=== PATIENT | female | born 1940 | race Caucasian/White ===

== ENCOUNTER 2017-09-15 20:41 | Inpatient (IN) ==
[2017-09-15 21:34] LABS: Basophils % 0.7 % (0.1-2.0); Hematocrit 37.7 % (37.0-47.0); Hemoglobin 12.3 g/dL (12.2-16.2); Lymphocytes % 16.4 K/mm3 (10-50); Mean Corpuscular HGB Conc 32.6 g/dL (31.8-35.4); Mean Corpuscular Hemoglobin 34.3 pg (27.0-31.2); Mean Corpuscular Volume 105.4 fl (81-99); Mean Platelet Volume 10.3 fl (7.4-10.4); Monocytes # 0.4 K/mm3 (0.1-1.0); Neutrophils # 4.5 K/mm3 (1.8-7.8); Neutrophils % 75.9 % (37.0-80.0); Platelet Count 114 K/mm3 (142-424); Red Blood Count 3.58 M/mm3 (4.20-5.40); Red Cell Distribution Width 13.6 % (11.5-17.5)
[2017-09-15 22:08] LABS: Albumin Level 3.2 gm/dL (3.4-5.0); Albumin/Globulin Ratio 0.8 (1.1-1.8); Bilirubin,Total 0.3 mg/dL (0.2-1.0); Calcium 8.4 mg/dL (8.5-10.1); Total Protein,Serum 7.2 gm/dL (6.4-8.2)
--- NOTE | 2017-09-15 22:31 | Emergency Department Note ---
ED Disposition Clinical Impression: Acute delirium, Renal insufficiency UTI (urinary tract infection) Qualifiers: Urinary tract infection type: site unspecified Hematuria presence: without hematuria Qualified Code(s): N39.0 - Urinary tract infection, site not specified A-fib Qualifiers: Atrial fibrillation type: chronic Qualified Code(s): I48.2 - Chronic atrial fibrillation Disposition: Admitted as Observation Condition on Discharge: Good - Critical Care Critical Care Time: No Attestation: On 09/15/17, the high probability of a clinically significant, sudden or life threatening deterioration of the following system(s) required my full and direct attention, intervention and personal management. The time I documented below is in addition to time spent performing reported procedures but includes the following listed in this critical care notation. Medical Decision Making - Medical Records Medical records reviewed: Yes: I reviewed the patient's medical records. - Joss Inquiry Pt receiving controlled substance: No Vital Signs: 09/15/17 20:42 09/15/17 21:39 09/15/17 22:30 Temperature 101.3 F H 99.1 F Temperature Source Rectal Oral Pulse Rate [Right Radial] 67 83 74 Respiratory Rate 20 16 20 Blood Pressure [Right Arm] 93/52 148/53 119/53 Blood Pressure Mean [Right Arm] 65 84 75 Blood Pressure Source [Right Arm] Automatic Cuff Automatic Cuff Automatic Cuff Blood Pressure Position [Right Arm] Supine Supine Sitting 02 Sat by Pulse Oximetry 95 97 94 L Oxygen Delivery Method Room Air Room Air Room Air - Lab Data Lab results reviewed: Yes: I reviewed the patient's lab results. Lab Results 09/15/17 20:55: Urine Color Yellow, Urine Appearance Clear, Urine pH 6.0, Ur Specific [place] 1.025, Urine Protein 2+, Urine Glucose (UA) Negative, Urine Ketones Trace, Urine Blood 3+, Urine Nitrate Negative, Urine Bilirubin Negative , Urine Urobilinogen 0.2, Ur Leukocyte Esterase 2+ A, Urine RBC 10-20, Urine WBC 20-50 A, Ur Squamous Epith Cells 3-5, Urine Bacteria 1+ 09/15/17 21:20: Sodium 131 L, Potassium 4.0, Chloride 100, Carbon Dioxide 21, Anion Gap 14.0, BUN 33 H, Creatinine 2.22 H, Estimated Creat Clear 23, Estimated GFR 21 L, Est GFR ( Amer) 26 L, Glucose 191 H, Calcium 8.4 L, Total Bilirubin 0.3, AST 25, ALT 20, Alkaline Phosphatase 122 H, Total Creatine Kinase 75, CK-MB (CK-2) 1.4, CK-MB (CK-2) Rel Index 1.9, Troponin I 0.04, Total Protein 7.2, Albumin 3.2 L, Globulin 4.0 H, Albumin/Globulin Ratio 0.8 L, Amylase 50, Lipase 70 L 09/15/17 21:20: Lactic Acid 1.3 09/15/17 21:20: WBC 6.0, RBC 3.58 L, Hgb 12.3, Hct 37.7, MCV 105.4 H, MCH 34.3 H , MCHC 32.6, RDW 13.6, Plt Count 114 L, MPV 10.3, Neut % (Auto) 75.9, Lymph % ( Auto) 16.4, [place] % (Auto) 7.0, Eos % (Auto) 0.0 L, Baso % (Auto) 0.7, Neut # ( Auto) 4.5, Lymph # (Auto) 1.0, [place] # (Auto) 0.4, Eos # (Auto) 0.0, Baso # (Auto ) 0.0 Result diagrams: 09/15/17 21:20 09/15/17 21:20 Orders (Tests/Meds): ED MEDICATIONS Generic Name Dose Route Start Last Admin Trade Name Freq PRN Reason Stop Dose Admin Levofloxacin/Dextrose 500 mg in 100 mls @ 100 mls/hr 09/15/17 22:45 Levaquin 500mg/100ml Premix IV 09/15/17 23:44 ONCE ONE Protocol Discontinued Medications Generic Name Dose Route Start Last Admin Trade Name Freq PRN Reason Stop Dose Admin Acetaminophen 1,000 mg 09/15/17 20:59 09/15/17 21:15 Tylenol 500mg Tablet PO 09/15/17 21:00 1,000 mg ONCE ONE Administration Sodium Chloride 1,000 mls @ 999 mls/hr 09/15/17 21:30 09/15/17 21:33 Sod Chlor 0.9% 1000ml Bag IV 09/15/17 22:30 999 mls/hr .[id number] DASIA Administration ORDERS Category Date Time Status CT head/brain wo con Stat Cat Scan 09/15/17 21:00 Taken XR chest AP Stat Exams 09/15/17 21:16 Taken Hemoglobin A1C Stat Lab 09/15/17 22:49 Ordered Blood Culture Stat Micro 09/15/17 20:59 Ordered Urine Culture(cathed specimen) Stat Micro 09/15/17 20:55 Received - Radiology Data #1 Image(s): Chest Image Reviewed: Yes I reviewed the patient's radiology image Preliminary Findings: Abnormal (cm) - CT Data CT Scan: Head Time Received: 22:[address] Reviewed: Yes: I have viewed the radiologist's interpretation Preliminary Findings: Abnormal (see report) - ECG Data Tracing #1 I reviewed this ECG and interpreted as documented below: Arrhythmias present: afib Ischemic changes: non-specific ST-T wave changes - Physician Consults Physician Consulted: toñito Reason -: Admission Neuro HPI - General Chief Complaint: Syncope Stated Complaint: altered mental status Time Seen by Provider: 09/15/17 22:22 Mode of Arrival: EMS Source of Information: Patient, Relative Limitations: No Limitations Description of Symptoms (Recalled from ER Triage Doc. by RN): reported presyncope/syncope, with significant hypotension, found in room with her heat on - History of Present Illness HPI Narrative: wf with sudden change in mental status tonight - she was able to follow commands but vomiting and was not at [place] - has hx of a fib/breast cancer and tia - she had no chest pain or trauma - Onset (ago): hour(s) Timing confirmed by: family member Location: altered History of same: No Severity: moderate Quality: improving Context: sudden onset On Anticoagulants: Yes Associated symptoms: nausea/vomiting Treatments Prior to Arrival: none - Related Data Home Medications: Home Medications Medication Instructions Recorded Confirmed Apixaban [Eliquis] 2.5 mg PO BID 09/15/17 09/15/17 Atenolol [Atenolol 50mg Tab] 50 mg PO DAILY 09/15/17 09/15/17 Buspirone HCl [Buspar 10mg tablet] 10 mg PO TID 09/15/17 09/15/17 Cilostazol [Pletal 100mg tablet] 100 mg PO BID 09/15/17 09/15/17 Omeprazole [Omeprazole 40mg 40 mg PO DAILY 09/15/17 09/15/17 Capsule] Spironolactone [Spironolactone 25 mg PO DAILY 09/15/17 09/15/17 25mg Tab] Tamoxifen Citrate 1 tab PO DAILY 09/15/17 09/15/17 Ursodiol [Actigall] 300 mg PO BID 09/15/17 09/15/17 dilTIAZem HCl [Cardizem 60mg 60 mg PO TID 09/15/17 09/15/17 tab] Allergies/Adverse Reactions: Allergies Allergy/AdvReac Type Severity Reaction Status Date / Time cephalexin [CEPHALEXIN] Allergy Mild Verified 09/15/17 20:54 metformin [METFORMIN] Allergy Mild Verified 09/15/17 20:54 Sulfa (Sulfonamide Allergy Mild Verified 09/15/17 20:54 Antibiotics) [SULFA (SULFONAMIDE ANTIBIOTICS)] Stroke Alert/NIH Score - LOC Stroke Alert: No [facility] History I have reviewed the patient's past medical history: Yes Medical History: Reports:: Cancer (breast), Diabetes Mellitus Type 2 Denies:: Diabetes Mellitus Type 1, MRSA Amputation: No - Social History Smoking Status: Current every day smoker Alcohol Intake: never - Psychiatric History Expresses thoughts of harming self/others: None Suicide Plan Description: No Plan ROS Obtained: Yes All systems reviewed & no additional complaints - Constitutional Constitutional: Denies fever(s) - Eyes Eyes: Denies change in vision - ENT Ears, Nose, Mouth, and Throat: Denies sore throat - Cardiovascular Cardiovascular: Denies chest pain, Denies rapid heart rate - Respiratory Respiratory: No cough - Gastrointestinal Gastrointestingal: Denies: abdominal pain, black, tarry stools - Genitourinary Female Genitourinary: Denies hematuria - Musculoskeletal Musculoskeletal: Denies joint pain, Denies joint swelling - Integumentary/Breasts Skin/Breast: Denies rash - Neurologic Neurologic: Reports as per HPI, Reports weakness, Reports other Physical Exam - General General appearance: in no apparent distress - Head Head exam: atraumatic - Eye Eye exam: Present: PERRL, EOMI. Absent: scleral icterus - ENT ENT exam: Present: mucous membranes dry - Neck Neck exam: Present: trachea midline. Absent: meningismus - Respiratory Respiratory exam: Present: normal lung sounds bilaterally. Absent: respiratory distress - Cardiovascular Cardiovascular exam: Present: regular rate, systolic murmur, +S4 - Abdominal Exam Abdominal exam: Present: soft - Extremities Exam Extremities exam: Absent: calf tenderness - Neurological Exam Neurological exam: Present: alert, CN II-XII intact, other (oriented x 2 ) - Psychiatric Psychiatric exam: Present: flat affect - Skin Skin exam: Absent: rash
[2017-09-16 06:11] LABS: Anion Gap 13.8 mEq/L (5-15); Chol/HDL Ratio 3.6 (1-3.5); Phosphorous 3.3 mg/dL (2.4-4.9); Potassium 3.8 mmoL/L (3.5-5.1)
[2017-09-16 06:21] LABS: Basophils % 0.6 % (0.1-2.0); Hematocrit 32.9 % (37.0-47.0); Lymphocytes # 1.6 K/mm3 (0.7-4.5); Lymphocytes % 30.7 K/mm3 (10-50); Mean Corpuscular HGB Conc 33.4 g/dL (31.8-35.4); Mean Corpuscular Hemoglobin 34.3 pg (27.0-31.2); Mean Corpuscular Volume 102.6 fl (81-99); Monocytes # 0.3 K/mm3 (0.1-1.0); Monocytes % 6.4 % (1.7-9.3); Neutrophils # 3.1 K/mm3 (1.8-7.8); Neutrophils % 62.2 % (37.0-80.0); Platelet Count 106 K/mm3 (142-424); Red Blood Count 3.21 M/mm3 (4.20-5.40); Red Cell Distribution Width 13.5 % (11.5-17.5); White Blood Count 5.1 K/mm3 (4.8-10.8)
[2017-09-16 06:22] LABS: Hemoglobin 10.9 g/dL (12.2-16.2)
--- NOTE | 2017-09-16 07:26 | Pharmacy Consult Notes ---
[facility] Pharmacy VTE Monitoring - Patient Demographics Admission date: 09/15/17 Report Date: 09/16/17 Time: 07:26 Allergies/Adverse Reactions: Patient Allergies cephalexin [CEPHALEXIN] Allergy (Mild, Verified 09/15/17 20:54) metformin [METFORMIN] Allergy (Mild, Verified 09/15/17 20:54) Sulfa (Sulfonamide Antibiotics) [SULFA (SULFONAMIDE ANTIBIOTICS)] Allergy (Mild , Verified 09/15/17 20:54) Height: 1.55 m Weight: 56.8 kg Patient Problems: Current Active Problems UTI (urinary tract infection) (Acute) Acute delirium (Acute) Renal insufficiency (Acute) A-fib (Acute) - VTE Risk Labs: VTE Related Lab Results Hgb 10.9 g/dL (12.2-16.2) L D 09/16/17 05:40 Hct 32.9 % (37.0-47.0) L 09/16/17 05:40 Plt Count 106 K/mm3 (142-424) L 09/16/17 05:40 BUN 33 mg/dL (7-18) H 09/16/17 05:40 Creatinine 2.08 mg/dL (0.55-1.02) H 09/16/17 05:40 Estimated Creat Clear 21 mL/min (0-300) 09/16/17 05:40 Was VTE Risk Assessment Performed: Yes VTE Score: 3 VTE Risk Level: Low Risk - Prophylaxis VTE Prophylaxis Ordered?: Yes Types of VTE Prophylaxis: TEDS Knee High, Pharmacological Location of Applied Device: Bilateral Lower Extremeties Pharmacologic Type: Other (ELIQUIS) - VTE Diagnosis Confirmed Treatment or plan recommended: Continue Current Treatment
--- NOTE | 2017-09-16 09:09 | History & Physical Report ---
*Admission Date: 09/15/17 <Kitty Mccray 09/16/17 09:17> *Chief complaint: confusion <Kitty Mccray 09/16/17 09:17> *History of present illness: Ms. Masters is a 77-year-old former patient of Dr. Solorio. According to her family member, she does not have a PCP at this time and she was discharged from his practice due to not showing up for appointments. The patient was eating dinner last night and just began staring off into space. She did not actually pass out but according to her family, had no motor responses. She then began vomiting. 911 was called and transported her to the emergency room where she was found to have a urinary tract infection. According to her family she has these quite frequently. At this time the patient is very lethargic. She did get up to eat some breakfast but is sleeping and does not answer questions this morning. <Kitty Mccray 09/16/17 09:17> [facility] History Medical History: Reports:: Atrial Fibrillation, Cancer, Coronary Artery Disease , Cerebrovascular Accident, Diabetes Mellitus Type 2, Hyperlipidemia, Hypertension Denies:: Diabetes Mellitus Type 1, MRSA <Kitty Mccray 09/16/17 09:17> Other Medical History: Reports: Arthritis, Cataracts <Kitty Mccray 09:17> Other Surgeries: Yes: Cardiac Catheterization, Cholecystectomy, Hysterectomy- Total <Kitty Mccray 09/16/17 09:17> Amputation: No <Kitty Mccray 09/16/17 09:17> Fractures: Yes <Kitty Mccray 09/16/17 09:17> Comment: lumpectomy left breast, hip fx, adhesions removed <Kitty Mccray 09:17> - *Social History Educational Level: Attended High School <Kitty cMcray 09/16/17 09:17> Smoking Status: Current every day smoker <Kitty Mccray 09/16/17 09:17> Tobacco Type: cigarettes <Kitty Mccray 09/16/17 09:17> # Packs/Day (cigarettes): 1 <Kitty Mccray 09/16/17 09:17> #Yrs smoked (if former smoker): 60 <Kitty Mccray 05/24/18 09:17> Alcohol Intake: never <Kitty Mccray 09/16/17 09:17> Occupational Status: retired <Kitty Mccray 09/16/17 09:17> Housing: house <Cornel Mccraya 09/16/17 09:17> Household Members: family <Kitty Mccray 09/16/17 09:17> - Psychiatric History Expresses thoughts of harming self/others: None <SilvioanaKitty 09/16/17 09: 17> Suicide Plan Description: No Plan <ShaziaKitty 09/16/17 09:17> *Family Hx:: Cancer, Diabetes, Stroke <ShaziaKitty 09/16/17 09:17> Review of Systems - Constitutional Reports fever(s) <SilvioanaKitty 09/16/17 09:17> - Eyes Denies blurry vision, Denies double vision <ShaziaKitty 09/16/17 09:17> - ENT Denies nasal congestion, Denies sore throat <ShaziaKitty 09/16/17 09:17> - *Cardiovascular Reports irregular heart rhythm, Denies chest pain <SilvioanaKitty 09/16/17 09 :17> - *Respiratory Reports cough, Denies shortness of breath <ShaziaKitty 09/16/17 09:17> - *Gastrointestinal Reports nausea, Reports vomiting, Denies loose stools <ShaziaKitty 09:17> - *Genitourinary Denies difficulty urinating, Denies painful urination <ShaziaKitty 09:17> - *Musculoskeletal Reports muscle weakness, Denies joint pain <SilvioanaKitty 09/16/17 09:17> - *Neurologic Reports weakness, Reports other <ShaziaKitty 09/16/17 09:17> Meds Home Medications Medication Instructions Recorded Confirmed Type Apixaban [Eliquis] 2.5 mg PO BID 09/15/17 09/16/17 History Atenolol [Atenolol 50mg Tab] 50 mg PO DAILY 09/15/17 09/16/17 History Buspirone HCl [Buspar 10mg tablet] 10 mg PO TID 09/15/17 09/16/17 History Cilostazol [Pletal 100mg tablet] 100 mg PO BID 09/15/17 09/16/17 History Omeprazole [Omeprazole 40mg 40 mg PO DAILY 09/15/17 09/16/17 History Capsule] Spironolactone [Spironolactone 25 mg PO DAILY 09/15/17 09/16/17 History 25mg Tab] Tamoxifen Citrate 1 tab PO DAILY 09/15/17 09/15/17 History Ursodiol [Actigall] 300 mg PO BID 09/15/17 09/16/17 History dilTIAZem HCl [Cardizem 60mg 60 mg PO TID 09/15/17 09/16/17 History tab] <Rolando Elder - 09/16/17 09:23> Allergies Allergy/AdvReac Type Severity Reaction Status Date / Time cephalexin [CEPHALEXIN] Allergy Mild Verified 09/15/17 20:54 metformin [METFORMIN] Allergy Mild Verified 09/15/17 20:54 Sulfa (Sulfonamide Allergy Mild Verified 09/15/17 20:54 Antibiotics) [SULFA (SULFONAMIDE ANTIBIOTICS)] <Rolando Elder - 09/16/17 09:23> Exam Vital signs and Labs for Last 24 Hours: Temp Pulse Resp BP Pulse Ox 98.0 F 75 20 141/61 98 09/16/17 08:00 09/16/17 08:00 09/16/17 08:00 09/16/17 08:00 09/16/17 08:00 Laboratory Results - last 24 hr 09/15/17 20:55: Urine Color Yellow, Urine Appearance Clear, Urine pH 6.0, Ur Specific [place] 1.025, Urine Protein 2+, Urine Glucose (UA) Negative, Urine Ketones Trace, Urine Blood 3+, Urine Nitrate Negative, Urine Bilirubin Negative , Urine Urobilinogen 0.2, Ur Leukocyte Esterase 2+ A, Urine RBC 10-20, Urine WBC 20-50 A, Ur Squamous Epith Cells 3-5, Urine Bacteria 1+ 09/15/17 21:20: Sodium 131 L, Potassium 4.0, Chloride 100, Carbon Dioxide 21, Anion Gap 14.0, BUN 33 H, Creatinine 2.22 H, Estimated Creat Clear 23, Estimated GFR 21 L, Est GFR ( Amer) 26 L, Glucose 191 H, Calcium 8.4 L, Total Bilirubin 0.3, AST 25, ALT 20, Alkaline Phosphatase 122 H, Total Creatine Kinase 75, CK-MB (CK-2) 1.4, CK-MB (CK-2) Rel Index 1.9, Troponin I 0.04, Total Protein 7.2, Albumin 3.2 L, Globulin 4.0 H, Albumin/Globulin Ratio 0.8 L, Amylase 50, Lipase 70 L 09/15/17 21:20: Lactic Acid 1.3 09/15/17 21:20: WBC 6.0, RBC 3.58 L, Hgb 12.3, Hct 37.7, MCV 105.4 H, MCH 34.3 H , MCHC 32.6, RDW 13.6, Plt Count 114 L, MPV 10.3, Neut % (Auto) 75.9, Lymph % ( Auto) 16.4, [place] % (Auto) 7.0, Eos % (Auto) 0.0 L, Baso % (Auto) 0.7, Neut # ( Auto) 4.5, Lymph # (Auto) 1.0, [place] # (Auto) 0.4, Eos # (Auto) 0.0, Baso # (Auto ) 0.0 09/15/17 21:20: Hemoglobin A1c 5.9 09/16/17 05:40: WBC 5.1, RBC 3.21 L, Hgb 10.9 L D, Hct 32.9 L, MCV 102.6 H, MCH 34.3 H, MCHC 33.4, RDW 13.5, Plt Count 106 L, MPV 10.0, Neut % (Auto) 62.2, Lymph % (Auto) 30.7, [place] % (Auto) 6.4, Eos % (Auto) 0.0 L, Baso % (Auto) 0.6, Neut # (Auto) 3.1, Lymph # (Auto) 1.6, [place] # (Auto) 0.3, Eos # (Auto) 0.0, Baso # (Auto) 0.0 09/16/17 05:40: Sodium 135 L, Potassium 3.8, Chloride 104, Carbon Dioxide 21, Anion Gap 13.8, BUN 33 H, Creatinine 2.08 H, Estimated Creat Clear 21, Estimated GFR 23 L, Est GFR ( Amer) 28 L, Glucose 89 D, Phosphorus 3.3, Magnesium 1.7, Triglycerides 100, Cholesterol 148, LDL Cholesterol 87, VLDL Cholesterol 20, HDL Cholesterol 41, Cholesterol/HDL Ratio 3.6 H 09/16/17 06:15: POC Glucose 81 <Rolando Elder - 09/16/17 09:23> Temp Pulse Resp BP Pulse Ox 98.0 F 75 20 141/61 98 09/16/17 08:00 09/16/17 08:00 09/16/17 08:00 09/16/17 08:00 09/16/17 08:00 Laboratory Results - last 24 hr 09/15/17 20:55: Urine Color Yellow, Urine Appearance Clear, Urine pH 6.0, Ur Specific [place] 1.025, Urine Protein 2+, Urine Glucose (UA) Negative, Urine Ketones Trace, Urine Blood 3+, Urine Nitrate Negative, Urine Bilirubin Negative , Urine Urobilinogen 0.2, Ur Leukocyte Esterase 2+ A, Urine RBC 10-20, Urine WBC 20-50 A, Ur Squamous Epith Cells 3-5, Urine Bacteria 1+ 09/15/17 21:20: Sodium 131 L, Potassium 4.0, Chloride 100, Carbon Dioxide 21, Anion Gap 14.0, BUN 33 H, Creatinine 2.22 H, Estimated Creat Clear 23, Estimated GFR 21 L, Est GFR ( Amer) 26 L, Glucose 191 H, Calcium 8.4 L, Total Bilirubin 0.3, AST 25, ALT 20, Alkaline Phosphatase 122 H, Total Creatine Kinase 75, CK-MB (CK-2) 1.4, CK-MB (CK-2) Rel Index 1.9, Troponin I 0.04, Total Protein 7.2, Albumin 3.2 L, Globulin 4.0 H, Albumin/Globulin Ratio 0.8 L, Amylase 50, Lipase 70 L 09/15/17 21:20: Lactic Acid 1.3 09/15/17 21:20: WBC 6.0, RBC 3.58 L, Hgb 12.3, Hct 37.7, MCV 105.4 H, MCH 34.3 H , MCHC 32.6, RDW 13.6, Plt Count 114 L, MPV 10.3, Neut % (Auto) 75.9, Lymph % ( Auto) 16.4, [place] % (Auto) 7.0, Eos % (Auto) 0.0 L, Baso % (Auto) 0.7, Neut # ( Auto) 4.5, Lymph # (Auto) 1.0, [place] # (Auto) 0.4, Eos # (Auto) 0.0, Baso # (Auto ) 0.0 09/15/17 21:20: Hemoglobin A1c 5.9 09/16/17 05:40: WBC 5.1, RBC 3.21 L, Hgb 10.9 L D, Hct 32.9 L, MCV 102.6 H, MCH 34.3 H, MCHC 33.4, RDW 13.5, Plt Count 106 L, MPV 10.0, Neut % (Auto) 62.2, Lymph % (Auto) 30.7, [place] % (Auto) 6.4, Eos % (Auto) 0.0 L, Baso % (Auto) 0.6, Neut # (Auto) 3.1, Lymph # (Auto) 1.6, [place] # (Auto) 0.3, Eos # (Auto) 0.0, Baso # (Auto) 0.0 09/16/17 05:40: Sodium 135 L, Potassium 3.8, Chloride 104, Carbon Dioxide 21, Anion Gap 13.8, BUN 33 H, Creatinine 2.08 H, Estimated Creat Clear 21, Estimated GFR 23 L, Est GFR ( Amer) 28 L, Glucose 89 D, Phosphorus 3.3, Magnesium 1.7, Triglycerides 100, Cholesterol 148, LDL Cholesterol 87, VLDL Cholesterol 20, HDL Cholesterol 41, Cholesterol/HDL Ratio 3.6 H 09/16/17 06:15: POC Glucose 81 <Kitty Mccray - 09/16/17 09:17> I & O for Last 24 hours: Intake & Output 09/13/17 09/14/17 09/15/17 09/16/17 11:59 11:59 11:59 11:59 Intake Total 392 / 392 Output Total 375 / 375 Balance Weight 125 lb 3.561 oz <Rolando Elder - 09/16/17 09:23> Intake & Output 09/13/17 09/14/17 09/15/17 09/16/17 11:59 11:59 11:59 11:59 Intake Total 392 / 392 Output Total 375 / 375 Balance Weight 125 lb 3.561 oz <[facility] 09/16/17 09:17> - Constitutional Comments: sleeping, lethargic [facility]:17> - *Routine HEENT Exam Head: Present: normocephalic, atraumatic <[facility] 09/16/17 09:17> Eye: Present: EOMI, PERRL <[facility] 09/16/17 09:17> ENT: Present: mucous membranes dry [facility] 09/16/17 09:17> - *Routine Neck Exam Present: supple, full ROM [facility] 09/16/17 09:17> - *Routine Respiratory Exam Present: wheezes [facility] 09/16/17 09:17> - *Routine Cardiovascular Exam Present: irregularly irregular <[facility] 09/16/17 09:17> - *Routine Abdominal Exam Present: soft, normoactive bowel sounds. Absent: tenderness [facility] 09/16/17 09:17> - *Routine Extremities Exam Absent: edema [facility] 09/16/17 09:17> - *Routine Skin Exam Present: intact [facility] 09/16/17 09:17> - *Routine Neurological Exam Present: altered mental status [facility] 09/16/17 09:17> H&P: Result - Labs Labs: Short CBC 09/15/17 09/16/17 Range/Units 21:20 05:40 WBC 6.0 5.1 (4.8-10.8) K/mm3 Hgb 12.3 10.9 L D (12.2-16.2) g/dL Hct 37.7 32.9 L (37.0-47.0) % Plt Count 114 L 106 L (142-424) K/mm3 BMP 09/15/17 09/16/17 21:20 05:40 Sodium 131 L 135 L Potassium 4.0 3.8 Chloride 100 104 Carbon Dioxide 21 21 BUN 33 H 33 H Creatinine 2.22 H 2.08 H Glucose 191 H 89 D Calcium 8.4 L Cardiac Enzymes 09/15/17 Range/Units 21:20 Total Creatine Kinase 75 (26-192) U/L CK-MB (CK-2) 1.4 (0.0-3.6) ng/ml Troponin I 0.04 (0.00-0.06) ng/ml Liver Function 09/15/17 Range/Units 21:20 Total Bilirubin 0.3 (0.2-1.0) mg/dL AST 25 (15-37) U/L ALT 20 (12-78) U/L Alkaline Phosphatase 122 H (46-116) U/L Albumin 3.2 L (3.4-5.0) gm/dL Urine 09/15/17 Range/Units 20:55 Urine Color Yellow (Yellow) Urine Appearance Clear (Clear) Urine pH 6.0 (5.0-8.5) Ur Specific [place] 1.025 (1.005-1.030) Urine Protein 2+ (Negative) Urine Glucose (UA) Negative (Negative) <Rolando Elder - 09/16/17 09:23> <Kitty Mccray - 09/16/17 09:17> - Impressions Head CT - nothing acute CXR - Overall no change cardiomegaly with chronic interstitial changes <Kitty Mccray - 09/16/17 09:17> Assessment and Plan (1) UTI (urinary tract infection) Current visit: Yes Status: Acute Qualifiers: Urinary tract infection type: site unspecified Hematuria presence: without hematuria Qualified Code(s): N39.0 - Urinary tract infection, site not specified Category: Medical Code(s): N39.0 - Urinary tract infection, site not specified (2) Renal insufficiency Current visit: Yes Status: Acute Category: Medical Code(s): N28.9 - Disorder of kidney and ureter, unspecified (3) Acute delirium Current visit: Yes Status: Acute Category: Medical Code(s): R41.0 - Disorientation, unspecified (4) A-fib Current visit: Yes Status: Chronic Qualifiers: Atrial fibrillation type: chronic Qualified Code(s): I48.2 - Chronic atrial fibrillation Category: Medical Code(s): I48.91 - Unspecified atrial fibrillation (5) Hypertension Current visit: Yes Status: Chronic Category: Medical Code(s): I10 - Essential (primary) hypertension (6) Diabetes mellitus, type II Current visit: Yes Status: Chronic Category: Medical Code(s): E11.9 - Type 2 diabetes mellitus without complications (7) Hyperlipidemia Current visit: Yes Status: Chronic Category: Medical Code(s): E78.5 - Hyperlipidemia, unspecified (8) History of CVA (cerebrovascular accident) Current visit: Yes Status: Chronic Category: Medical Code(s): Z86.73 - Personal history of transient ischemic attack (TIA), and cerebral infarction without residual deficits <Rolando Elder - 09/16/17 09:23> (1) UTI (urinary tract infection) Current visit: Yes Status: Acute Qualifiers: Urinary tract infection type: site unspecified Hematuria presence: without hematuria Qualified Code(s): N39.0 - Urinary tract infection, site not specified Category: Medical Code(s): N39.0 - Urinary tract infection, site not specified (2) Renal insufficiency Current visit: Yes Status: Acute Category: Medical Code(s): N28.9 - Disorder of kidney and ureter, unspecified (3) Acute delirium Current visit: Yes Status: Acute Category: Medical Code(s): R41.0 - Disorientation, unspecified (4) A-fib Current visit: Yes Status: Chronic Qualifiers: Atrial fibrillation type: chronic Qualified Code(s): I48.2 - Chronic atrial fibrillation Category: Medical Code(s): I48.91 - Unspecified atrial fibrillation (5) Hypertension Current visit: Yes Status: Chronic Category: Medical Code(s): I10 - Essential (primary) hypertension (6) Diabetes mellitus, type II Current visit: Yes Status: Chronic Category: Medical Code(s): E11.9 - Type 2 diabetes mellitus without complications (7) Hyperlipidemia Current visit: Yes Status: Chronic Category: Medical Code(s): E78.5 - Hyperlipidemia, unspecified (8) History of CVA (cerebrovascular accident) Current visit: Yes Status: Chronic Category: Medical Code(s): Z86.73 - Personal history of transient ischemic attack (TIA), and cerebral infarction without residual deficits <Kitty Mccray - 09/16/17 09:06> - Assessment and plan all Dx Assessment and Plan for all problems:: Saw patient, agree with above note. <Rolando Elder - 09/16/17 09:23> Await urine culture results. Will need continued antibiotics but likely every other day due to creatinine clearance. <Kitty Mccray - 09/16/17 09:17>
[2017-09-17 07:01] LABS: Basophils % 0.3 % (0.1-2.0); Eosinophils % 0.1 % (0.1-12.0); Hematocrit 34.7 % (37.0-47.0); Hemoglobin 10.7 g/dL (12.2-16.2); Lymphocytes # 1.5 K/mm3 (0.7-4.5); Lymphocytes % 19.5 K/mm3 (10-50); Mean Corpuscular HGB Conc 30.9 g/dL (31.8-35.4); Mean Corpuscular Hemoglobin 33.1 pg (27.0-31.2); Mean Corpuscular Volume 107.1 fl (81-99); Mean Platelet Volume 10.2 fl (7.4-10.4); Monocytes # 0.4 K/mm3 (0.1-1.0); Monocytes % 5.4 % (1.7-9.3); Neutrophils # 5.8 K/mm3 (1.8-7.8); Neutrophils % 74.6 % (37.0-80.0); Platelet Count 97 K/mm3 (142-424); Red Blood Count 3.24 M/mm3 (4.20-5.40); Red Cell Distribution Width 14.2 % (11.5-17.5); White Blood Count 7.7 K/mm3 (4.8-10.8)
--- NOTE | 2017-09-17 08:22 | Progress Note ---
<Kitty Mccray - Last Filed: 09/17/17 08:18> Internal Medicine - PN: Subj *Date: 09/17/17 *Time: 08:18 Interval history: Nursing states the patient has not done well throughout the night. She ran a rectal temperature of over 103. Nursing states she has been very agitated. Her daughter informed them that she has been out of her tamoxifen and her pain medication for a while and had been getting that from Dr. Solorio. She states her right leg is hurting today. She states it is more like cramps. Her daughter thinks her wheezing is worse. Exam Vital signs and Labs for Last 24 Hours: Temp Pulse Resp BP Pulse Ox 100.6 F H 88 24 158/70 94 L 09/17/17 06:56 09/17/17 06:44 09/17/17 04:00 09/17/17 04:00 09/17/17 04:00 Laboratory Results - last 24 hr 09/16/17 11:45: POC Glucose 111 H 09/16/17 17:03: POC Glucose 95 09/16/17 20:19: POC Glucose 157 H 09/17/17 06:08: POC Glucose 117 H 09/17/17 06:41: WBC 7.7 D, RBC 3.24 L, Hgb 10.7 L, Hct 34.7 L, MCV 107.1 H, MCH 33.1 H, MCHC 30.9 L, RDW 14.2, Plt Count 97 L, MPV 10.2, Neut % (Auto) 74.6 , Lymph % (Auto) 19.5, [place] % (Auto) 5.4, Eos % (Auto) 0.1, Baso % (Auto) 0.3, Neut # (Auto) 5.8, Lymph # (Auto) 1.5, [place] # (Auto) 0.4, Eos # (Auto) 0.0, Baso # (Auto) 0.0 I & O for Last 24 hours: Intake & Output 09/14/17 09/15/17 09/16/17 09/17/17 11:59 11:59 11:59 11:59 Intake Total 392 / 392 360 / 360 Output Total 375 / 375 2550 / 2550 Balance -2189 / Weight 125 lb 3.561 oz 130 lb 1.164 oz Microbiology Reports for the Last 24 Hours: Microbiology 09/15/17 20:55 Urine,Catheterized Urine Culture - Preliminary NO GROWTH AFTER 24 HOURS - Constitutional no acute distress - *Routine Respiratory Exam Present: rhonchi, wheezes - *Routine Cardiovascular Exam Present: RRR - *Routine Abdominal Exam Present: soft, normoactive bowel sounds. Absent: tenderness - *Routine Extremities Exam Absent: edema Comments: ttp of entire right leg Assessment and Plan (1) UTI (urinary tract infection) Current visit: Yes Status: Acute Qualifiers: Urinary tract infection type: site unspecified Hematuria presence: without hematuria Qualified Code(s): N39.0 - Urinary tract infection, site not specified Category: Medical Code(s): N39.0 - Urinary tract infection, site not specified (2) Renal insufficiency Current visit: Yes Status: Acute Category: Medical Code(s): N28.9 - Disorder of kidney and ureter, unspecified (3) Acute delirium Current visit: Yes Status: Acute Category: Medical Code(s): R41.0 - Disorientation, unspecified (4) A-fib Current visit: Yes Status: Chronic Qualifiers: Atrial fibrillation type: chronic Qualified Code(s): I48.2 - Chronic atrial fibrillation Category: Medical Code(s): I48.91 - Unspecified atrial fibrillation (5) Hypertension Current visit: Yes Status: Chronic Category: Medical Code(s): I10 - Essential (primary) hypertension (6) Diabetes mellitus, type II Current visit: Yes Status: Chronic Category: Medical Code(s): E11.9 - Type 2 diabetes mellitus without complications (7) Hyperlipidemia Current visit: Yes Status: Chronic Category: Medical Code(s): E78.5 - Hyperlipidemia, unspecified (8) History of CVA (cerebrovascular accident) Current visit: Yes Status: Chronic Category: Medical Code(s): Z86.73 - Personal history of transient ischemic attack (TIA), and cerebral infarction without residual deficits (9) Right leg pain Current visit: Yes Status: Acute Category: Medical Code(s): M79.604 - Pain in right leg - Assessment and plan all Dx Assessment and Plan for all problems:: Will get a chest x-ray today as well as a CMP to check patient's electrolytes. Will discuss further care with Dr. Elder. <Rolando Elder - Last Filed: 09/17/17 09:09> Internal Medicine - PN: Subj *Date: 09/17/17 *Time: 09:08 Exam Vital signs and Labs for Last 24 Hours: Temp Pulse Resp BP Pulse Ox 98.0 F 117 H 22 94/58 95 09/17/17 08:00 09/17/17 08:00 09/17/17 08:00 09/17/17 08:00 09/17/17 08:00 Laboratory Results - last 24 hr 09/16/17 11:45: POC Glucose 111 H 09/16/17 17:03: POC Glucose 95 09/16/17 20:19: POC Glucose 157 H 09/17/17 06:08: POC Glucose 117 H 09/17/17 06:41: WBC 7.7 D, RBC 3.24 L, Hgb 10.7 L, Hct 34.7 L, MCV 107.1 H, MCH 33.1 H, MCHC 30.9 L, RDW 14.2, Plt Count 97 L, MPV 10.2, Neut % (Auto) 74.6 , Lymph % (Auto) 19.5, [place] % (Auto) 5.4, Eos % (Auto) 0.1, Baso % (Auto) 0.3, Neut # (Auto) 5.8, Lymph # (Auto) 1.5, [place] # (Auto) 0.4, Eos # (Auto) 0.0, Baso # (Auto) 0.0 09/17/17 08:26: Sodium 134 L, Potassium 3.5, Chloride 105, Carbon Dioxide 15 L D , Anion Gap 17.5 H, BUN 25 H, Creatinine 1.99 H, Estimated Creat Clear 22, Estimated GFR 24 L, Est GFR ( Amer) 29 L, Glucose 167 H, Calcium 8.0 L, Total Bilirubin 0.3, AST 37 D, ALT 19, Alkaline Phosphatase 105, Total Protein 6.6, Albumin 3.0 L, Globulin 3.6 H, Albumin/Globulin Ratio 0.8 L I & O for Last 24 hours: Intake & Output 09/14/17 09/15/17 09/16/17 09/17/17 11:59 11:59 11:59 11:59 Intake Total 392 / 392 3846 / 3846 Output Total 375 / 375 2550 / 2550 Balance 1296 / 1296 Weight 125 lb 3.561 oz 130 lb 1.164 oz Microbiology Reports for the Last 24 Hours: Microbiology 09/15/17 20:55 Urine,Catheterized Urine Culture - Preliminary Assessment and Plan (1) UTI (urinary tract infection) Current visit: Yes Status: Acute Qualifiers: Urinary tract infection type: site unspecified Hematuria presence: without hematuria Qualified Code(s): N39.0 - Urinary tract infection, site not specified Category: Medical Code(s): N39.0 - Urinary tract infection, site not specified (2) Renal insufficiency Current visit: Yes Status: Acute Category: Medical Code(s): N28.9 - Disorder of kidney and ureter, unspecified (3) Acute delirium Current visit: Yes Status: Acute Category: Medical Code(s): R41.0 - Disorientation, unspecified (4) A-fib Current visit: Yes Status: Chronic Qualifiers: Atrial fibrillation type: chronic Qualified Code(s): I48.2 - Chronic atrial fibrillation Category: Medical Code(s): I48.91 - Unspecified atrial fibrillation (5) Hypertension Current visit: Yes Status: Chronic Category: Medical Code(s): I10 - Essential (primary) hypertension (6) Diabetes mellitus, type II Current visit: Yes Status: Chronic Category: Medical Code(s): E11.9 - Type 2 diabetes mellitus without complications (7) Hyperlipidemia Current visit: Yes Status: Chronic Category: Medical Code(s): E78.5 - Hyperlipidemia, unspecified (8) History of CVA (cerebrovascular accident) Current visit: Yes Status: Chronic Category: Medical Code(s): Z86.73 - Personal history of transient ischemic attack (TIA), and cerebral infarction without residual deficits (9) Right leg pain Current visit: Yes Status: Acute Category: Medical Code(s): M79.604 - Pain in right leg - Assessment and plan all Dx Assessment and Plan for all problems:: Saw patient, agree with above note.
[2017-09-17 08:50] LABS: Albumin/Globulin Ratio 0.8 (1.1-1.8); Anion Gap 17.5 mEq/L (5-15); Bilirubin,Total 0.3 mg/dL (0.2-1.0); Globulin 3.6 gm/dl (1.3-3.2); Potassium 3.5 mmoL/L (3.5-5.1); Total Protein,Serum 6.6 gm/dL (6.4-8.2)
--- NOTE | 2017-09-18 08:29 | Progress Note ---
<Kitty Mccray - Last Filed: 09/18/17 08:25> Internal Medicine - PN: Subj *Date: 09/18/17 *Time: 08:25 Interval history: Patient is still coughing and wheezing. She is still complaining of pain in her legs. She states she slept better last night. Her daughter states she did eat some breakfast this morning. Exam Vital signs and Labs for Last 24 Hours: Temp Pulse Resp BP Pulse Ox 98.3 F 85 20 122/49 92 L 09/18/17 03:34 09/18/17 06:30 09/18/17 03:34 09/18/17 03:34 09/18/17 03:34 Laboratory Results - last 24 hr 09/17/17 08:26: Sodium 134 L, Potassium 3.5, Chloride 105, Carbon Dioxide 15 L D , Anion Gap 17.5 H, BUN 25 H, Creatinine 1.99 H, Estimated Creat Clear 22, Estimated GFR 24 L, Est GFR ( Amer) 29 L, Glucose 167 H, Calcium 8.0 L, Total Bilirubin 0.3, AST 37 D, ALT 19, Alkaline Phosphatase 105, Total Protein 6.6, Albumin 3.0 L, Globulin 3.6 H, Albumin/Globulin Ratio 0.8 L 09/17/17 11:31: POC Glucose 185 H 09/17/17 17:11: POC Glucose 117 H 09/17/17 21:29: POC Glucose 120 H 09/18/17 05:54: POC Glucose 100 I & O for Last 24 hours: Intake & Output 09/15/17 09/16/17 09/17/17 09/18/17 11:59 11:59 11:59 11:59 Intake Total 392 / 392 3896 / 3896 1715 / 1715 Output Total 375 / 375 2550 / 2550 800 / 800 Balance 1346 / 1346 915 / 915 Weight 125 lb 3.561 oz 130 lb 1.164 oz 126 lb 15.78 oz Microbiology Reports for the Last 24 Hours: Microbiology 09/15/17 20:55 Urine,Catheterized Urine Culture - Preliminary 09/15/17 21:20 Blood Blood Culture - Preliminary NO GROWTH AFTER 48 HOURS 09/15/17 21:20 Blood Blood Culture - Preliminary NO GROWTH AFTER 48 HOURS Radiology Reports for the Last 24 Hours: CXR 1. New likely focal ovoid/round pneumonia left midlung. This Focal ovoid density has developed since CXR from 2 days prior 2. Suspect minimal new infiltrate also now present at the medial left base retrocardiac region 3. Significant motion artifact on this chest film limits this study particularly at the right chest. 4. There appears to be a lucent skinfold line projected vertically over the right upper chest lung. Markings appear to extend beyond this. However there should be progressive right chest pain & progressive shortness of breath then consider a repeat CXR.. Again I favor this is likely a skinfold line 5. No focal pneumonia right chest 6. Cardiomegaly. - Constitutional Comments: lethargic but can answer questions - *Routine Respiratory Exam Present: rhonchi, wheezes - *Routine Cardiovascular Exam Present: RRR - *Routine Abdominal Exam Present: soft, normoactive bowel sounds. Absent: tenderness - *Routine Extremities Exam Present: tenderness (bilateral legs - entire leg). Absent: edema Assessment and Plan (1) UTI (urinary tract infection) Current visit: Yes Status: Acute Qualifiers: Urinary tract infection type: site unspecified Hematuria presence: without hematuria Qualified Code(s): N39.0 - Urinary tract infection, site not specified Category: Medical Code(s): N39.0 - Urinary tract infection, site not specified (2) Renal insufficiency Current visit: Yes Status: Acute Category: Medical Code(s): N28.9 - Disorder of kidney and ureter, unspecified (3) Acute delirium Current visit: Yes Status: Acute Category: Medical Code(s): R41.0 - Disorientation, unspecified (4) A-fib Current visit: Yes Status: Chronic Qualifiers: Atrial fibrillation type: chronic Qualified Code(s): I48.2 - Chronic atrial fibrillation Category: Medical Code(s): I48.91 - Unspecified atrial fibrillation (5) Hypertension Current visit: Yes Status: Chronic Category: Medical Code(s): I10 - Essential (primary) hypertension (6) Diabetes mellitus, type II Current visit: Yes Status: Chronic Category: Medical Code(s): E11.9 - Type 2 diabetes mellitus without complications (7) Hyperlipidemia Current visit: Yes Status: Chronic Category: Medical Code(s): E78.5 - Hyperlipidemia, unspecified (8) History of CVA (cerebrovascular accident) Current visit: Yes Status: Chronic Category: Medical Code(s): Z86.73 - Personal history of transient ischemic attack (TIA), and cerebral infarction without residual deficits (9) Right leg pain Current visit: Yes Status: Acute Category: Medical Code(s): M79.604 - Pain in right leg (10) Pneumonia Current visit: Yes Status: Acute Category: Medical Code(s): J18.9 - Pneumonia, unspecified organism - Assessment and plan all Dx Assessment and Plan for all problems:: Patient's chest x-ray from yesterday showed a left-sided pneumonia. She is currently on Levaquin for her urinary tract infection and urine culture is still pending. She is also getting duo nebs. Will discuss further care with Dr. Elder. <Rolando Elder - Last Filed: 09/18/17 08:50> Internal Medicine - PN: Subj *Date: 09/18/17 *Time: 08:48 Exam Vital signs and Labs for Last 24 Hours: Temp Pulse Resp BP Pulse Ox 99.5 F 108 H 24 141/54 99 09/18/17 08:00 09/18/17 08:00 09/18/17 08:00 09/18/17 08:00 09/18/17 08:00 Laboratory Results - last 24 hr 09/17/17 08:26: Sodium 134 L, Potassium 3.5, Chloride 105, Carbon Dioxide 15 L D , Anion Gap 17.5 H, BUN 25 H, Creatinine 1.99 H, Estimated Creat Clear 22, Estimated GFR 24 L, Est GFR ( Amer) 29 L, Glucose 167 H, Calcium 8.0 L, Total Bilirubin 0.3, AST 37 D, ALT 19, Alkaline Phosphatase 105, Total Protein 6.6, Albumin 3.0 L, Globulin 3.6 H, Albumin/Globulin Ratio 0.8 L 09/17/17 11:31: POC Glucose 185 H 09/17/17 17:11: POC Glucose 117 H 09/17/17 21:29: POC Glucose 120 H 09/18/17 05:54: POC Glucose 100 I & O for Last 24 hours: Intake & Output 09/15/17 09/16/17 09/17/17 09/18/17 11:59 11:59 11:59 11:59 Intake Total 392 / 392 3896 / 3896 3610 / 3610 Output Total 375 / 375 2550 / 2550 1600 / 1600 Balance 1346 / 1346 2009 Weight 125 lb 3.561 oz 130 lb 1.164 oz 126 lb 15.78 oz Microbiology Reports for the Last 24 Hours: Microbiology 09/15/17 20:55 Urine,Catheterized Urine Culture - Preliminary 09/15/17 21:20 Blood Blood Culture - Preliminary NO GROWTH AFTER 48 HOURS 09/15/17 21:20 Blood Blood Culture - Preliminary NO GROWTH AFTER 48 HOURS Assessment and Plan (1) UTI (urinary tract infection) Current visit: Yes Status: Acute Qualifiers: Urinary tract infection type: site unspecified Hematuria presence: without hematuria Qualified Code(s): N39.0 - Urinary tract infection, site not specified Category: Medical Code(s): N39.0 - Urinary tract infection, site not specified (2) Renal insufficiency Current visit: Yes Status: Acute Category: Medical Code(s): N28.9 - Disorder of kidney and ureter, unspecified (3) Acute delirium Current visit: Yes Status: Acute Category: Medical Code(s): R41.0 - Disorientation, unspecified (4) A-fib Current visit: Yes Status: Chronic Qualifiers: Atrial fibrillation type: chronic Qualified Code(s): I48.2 - Chronic atrial fibrillation Category: Medical Code(s): I48.91 - Unspecified atrial fibrillation (5) Hypertension Current visit: Yes Status: Chronic Category: Medical Code(s): I10 - Essential (primary) hypertension (6) Diabetes mellitus, type II Current visit: Yes Status: Chronic Category: Medical Code(s): E11.9 - Type 2 diabetes mellitus without complications (7) Hyperlipidemia Current visit: Yes Status: Chronic Category: Medical Code(s): E78.5 - Hyperlipidemia, unspecified (8) History of CVA (cerebrovascular accident) Current visit: Yes Status: Chronic Category: Medical Code(s): Z86.73 - Personal history of transient ischemic attack (TIA), and cerebral infarction without residual deficits (9) Right leg pain Current visit: Yes Status: Acute Category: Medical Code(s): M79.604 - Pain in right leg (10) Pneumonia Current visit: Yes Status: Acute Category: Medical Code(s): J18.9 - Pneumonia, unspecified organism - Assessment and plan all Dx Assessment and Plan for all problems:: Saw patient, agree with above note, she is slowly improving, CXR now shows a pneumonia. Continue current treatment. Patient will likely need post hospital SNF care.
[2017-09-19 07:56] LABS: Basophils % 0.3 % (0.1-2.0); Eosinophils % 0.3 % (0.1-12.0); Hematocrit 33.8 % (37.0-47.0); Hemoglobin 10.5 g/dL (12.2-16.2); Lymphocytes # 1.4 K/mm3 (0.7-4.5); Lymphocytes % 20.4 K/mm3 (10-50); Mean Corpuscular Hemoglobin 33.2 pg (27.0-31.2); Mean Platelet Volume 11.4 fl (7.4-10.4); Monocytes # 0.3 K/mm3 (0.1-1.0); Monocytes % 4.2 % (1.7-9.3); Neutrophils # 5.2 K/mm3 (1.8-7.8); Neutrophils % 74.8 % (37.0-80.0); Platelet Count 85 K/mm3 (142-424); Red Blood Count 3.16 M/mm3 (4.20-5.40); Red Cell Distribution Width 14.2 % (11.5-17.5)
[2017-09-19 07:57] LABS: Anion Gap 7.6 mEq/L (5-15); Potassium 3.6 mmoL/L (3.5-5.1)
--- NOTE | 2017-09-19 08:48 | Progress Note ---
Internal Medicine - PN: Subj *Date: 09/19/17 *Time: 08:44 Interval history: As patient became more awake and alert yesterday, it was found that she had decreased movement of her right arm and leg and had a right sided facial droop and difficulty swallowing. CT of the brain was repeated and a speech therapy evaluation was ordered. Exam Vital signs and Labs for Last 24 Hours: Temp Pulse Resp BP Pulse Ox 98.5 F 109 H 22 98/50 95 09/19/17 07:26 09/19/17 07:26 09/19/17 07:26 09/19/17 07:26 09/19/17 07:26 Laboratory Results - last 24 hr 09/18/17 10:57: POC Glucose 162 H 09/18/17 17:18: POC Glucose 126 H 09/18/17 20:47: POC Glucose 166 H 09/19/17 05:42: POC Glucose 104 09/19/17 06:24: WBC 7.0, RBC 3.16 L, Hgb 10.5 L, Hct 33.8 L, MCV 107.0 H, MCH 33.2 H, MCHC 31.0 L, RDW 14.2, Plt Count 85 L, MPV 11.4 H, Neut % (Auto) 74.8, Lymph % (Auto) 20.4, [place] % (Auto) 4.2, Eos % (Auto) 0.3, Baso % (Auto) 0.3, Neut # (Auto) 5.2, Lymph # (Auto) 1.4, [place] # (Auto) 0.3, Eos # (Auto) 0.0, Baso # (Auto) 0.0 09/19/17 06:24: Sodium 127 L, Potassium 3.6, Chloride 106, Carbon Dioxide 17 L, Anion Gap 7.6, BUN 17 D, Creatinine 1.75 H, Estimated Creat Clear 26, Estimated GFR 28 L, Est GFR ( Amer) 34 L, Glucose 101 Vital Signs Temp Pulse Pulse Resp BP Pulse Ox 09/19/17 07:26 98.5 F 109 H 22 98/50 95 09/19/17 05:26 86 09/19/17 04:00 98.5 F 80 95 H 22 100/40 98 09/19/17 00:00 100 H 09/18/17 23:55 98.8 F 73 20 101/38 94 L 09/18/17 21:11 95 H 20 122/46 93 L 09/18/17 20:00 100 H 93 L 09/18/17 19:56 90 09/18/17 19:20 99.1 F 109 H 22 118/43 97 09/18/17 19:02 82 09/18/17 16:00 100 H 09/18/17 15:11 98.0 F 82 20 137/41 97 09/18/17 13:02 83 09/18/17 12:38 99.1 F 92 H 24 133/61 Intake and Output 09/18/17 09/19/17 09/19/17 19:59 03:59 11:59 Intake Total 1416 / 1416 1044 / 1044 Output Total 325 / 325 500 / 500 Balance 1091 / 1091 544 / 544 Intake: Intake, Oral Amount 120 / 120 120 / 120 Intake, Other Amount 924 / 924 Intake, Total IV Amount 1296 / 1296 0.9 % Sodium Chloride 1,000 ml 1296 / 1296 @ 75 mls/hr IV .[id number] ON LICENSE OF [facility] Rx# :[id number] Output: Output, Urine Amount (Catheter) 325 / 325 500 / 500 Joshua 325 / 325 500 / 500 Other: Number of Bowel Movements 0 Weight 133 lb 5 oz Patient Weight 09/19/17 11:59 Weight 133 lb 5 oz I & O for Last 24 hours: Intake & Output 09/16/17 09/17/17 09/18/17 09/19/17 11:59 11:59 11:59 11:59 Intake Total 392 / 392 3896 / 3896 3660 / 3660 2460 / 2460 Output Total 375 / 375 2550 / 2550 1600 / 1600 825 / 825 Balance 1346 / 1346 2060 / 2060 1635 / 1635 Weight 125 lb 3.561 oz 130 lb 1.164 oz 126 lb 15.78 oz 133 lb 5 oz Microbiology Reports for the Last 24 Hours: Microbiology 09/15/17 20:55 Urine,Catheterized Urine Culture - Preliminary Radiology Reports for the Last 24 Hours: CT brain shows possible new lacunar infarct - Constitutional no acute distress (talks more this morning) - *Routine HEENT Exam ENT: Present: mucous membranes moist Comments: minimal down turning of right side of mouth - *Routine Respiratory Exam Comments: few coarse breath sounds with some crackles on left side - *Routine Cardiovascular Exam Present: RRR - *Routine Neurological Exam Present: alert, motor deficit (unable to move right hand, minimal foot movement to pain) Assessment and Plan (1) UTI (urinary tract infection) Current visit: Yes Status: Acute Qualifiers: Urinary tract infection type: site unspecified Hematuria presence: without hematuria Qualified Code(s): N39.0 - Urinary tract infection, site not specified Category: Medical Code(s): N39.0 - Urinary tract infection, site not specified (2) Renal insufficiency Current visit: Yes Status: Acute Category: Medical Code(s): N28.9 - Disorder of kidney and ureter, unspecified (3) Acute delirium Current visit: Yes Status: Acute Category: Medical Code(s): R41.0 - Disorientation, unspecified (4) A-fib Current visit: Yes Status: Chronic Qualifiers: Atrial fibrillation type: chronic Qualified Code(s): I48.2 - Chronic atrial fibrillation Category: Medical Code(s): I48.91 - Unspecified atrial fibrillation (5) Hypertension Current visit: Yes Status: Chronic Category: Medical Code(s): I10 - Essential (primary) hypertension (6) Diabetes mellitus, type II Current visit: Yes Status: Chronic Category: Medical Code(s): E11.9 - Type 2 diabetes mellitus without complications (7) Hyperlipidemia Current visit: Yes Status: Chronic Category: Medical Code(s): E78.5 - Hyperlipidemia, unspecified (8) History of CVA (cerebrovascular accident) Current visit: Yes Status: Chronic Category: Medical Code(s): Z86.73 - Personal history of transient ischemic attack (TIA), and cerebral infarction without residual deficits (9) Right leg pain Current visit: Yes Status: Acute Category: Medical Code(s): M79.604 - Pain in right leg (10) Pneumonia Current visit: Yes Status: Acute Category: Medical Code(s): J18.9 - Pneumonia, unspecified organism (11) Right hemiparesis Current visit: Yes Status: Acute Category: Medical Code(s): G81.91 - Hemiplegia, unspecified affecting right dominant side (12) Dysphagia Current visit: Yes Status: Acute Category: Medical Code(s): R13.10 - Dysphagia, unspecified - Assessment and plan all Dx Assessment and Plan for all problems:: Patient has improved from a mental status aspect but she appears to have had a CVA with her physical exam findings and CT brain changes. Speech therapy to see patient again today, will order PT and OT evaluation.
--- NOTE | 2017-09-19 11:16 | Progress Note ---
Internal Medicine - PN: Subj *Date: 09/19/17 *Time: 11:16 Exam Vital signs and Labs for Last 24 Hours: Temp Pulse Resp BP Pulse Ox 98.5 F 90 22 98/50 95 09/19/17 07:26 09/19/17 08:00 09/19/17 07:26 09/19/17 07:26 09/19/17 07:26 Laboratory Results - last 24 hr 09/18/17 17:18: POC Glucose 126 H 09/18/17 20:47: POC Glucose 166 H 09/19/17 05:42: POC Glucose 104 09/19/17 06:24: WBC 7.0, RBC 3.16 L, Hgb 10.5 L, Hct 33.8 L, MCV 107.0 H, MCH 33.2 H, MCHC 31.0 L, RDW 14.2, Plt Count 85 L, MPV 11.4 H, Neut % (Auto) 74.8, Lymph % (Auto) 20.4, [place] % (Auto) 4.2, Eos % (Auto) 0.3, Baso % (Auto) 0.3, Neut # (Auto) 5.2, Lymph # (Auto) 1.4, [place] # (Auto) 0.3, Eos # (Auto) 0.0, Baso # (Auto) 0.0 09/19/17 06:24: Sodium 127 L, Potassium 3.6, Chloride 106, Carbon Dioxide 17 L, Anion Gap 7.6, BUN 17 D, Creatinine 1.75 H, Estimated Creat Clear 26, Estimated GFR 28 L, Est GFR ( Amer) 34 L, Glucose 101 I & O for Last 24 hours: Intake & Output 09/16/17 09/17/17 09/18/17 09/19/17 23:59 23:59 23:59 23:59 Intake Total 442 / 442 4756 / 4756 4166 / 4166 1044 / 1044 Output Total 1575 / 1575 1650 / 1650 1625 / 1625 500 / 500 Balance -1133 / -1133 3106 / 3106 2541 / 2541 544 / 544 Weight 56.8 kg 59 kg 57.6 kg 60.47 kg Microbiology Reports for the Last 24 Hours: Microbiology 09/15/17 20:55 Urine,Catheterized Urine Culture - Preliminary Assessment and Plan (1) UTI (urinary tract infection) Current visit: Yes Status: Acute Qualifiers: Urinary tract infection type: site unspecified Hematuria presence: without hematuria Qualified Code(s): N39.0 - Urinary tract infection, site not specified Category: Medical Code(s): N39.0 - Urinary tract infection, site not specified (2) Renal insufficiency Current visit: Yes Status: Acute Category: Medical Code(s): N28.9 - Disorder of kidney and ureter, unspecified (3) Acute delirium Current visit: Yes Status: Acute Category: Medical Code(s): R41.0 - Disorientation, unspecified (4) A-fib Current visit: Yes Status: Chronic Qualifiers: Atrial fibrillation type: chronic Qualified Code(s): I48.2 - Chronic atrial fibrillation Category: Medical Code(s): I48.91 - Unspecified atrial fibrillation (5) Hypertension Current visit: Yes Status: Chronic Category: Medical Code(s): I10 - Essential (primary) hypertension (6) Diabetes mellitus, type II Current visit: Yes Status: Chronic Category: Medical Code(s): E11.9 - Type 2 diabetes mellitus without complications (7) Hyperlipidemia Current visit: Yes Status: Chronic Category: Medical Code(s): E78.5 - Hyperlipidemia, unspecified (8) History of CVA (cerebrovascular accident) Current visit: Yes Status: Chronic Category: Medical Code(s): Z86.73 - Personal history of transient ischemic attack (TIA), and cerebral infarction without residual deficits (9) Right leg pain Current visit: Yes Status: Acute Category: Medical Code(s): M79.604 - Pain in right leg (10) Pneumonia Current visit: Yes Status: Acute Category: Medical Code(s): J18.9 - Pneumonia, unspecified organism (11) Right hemiparesis Current visit: Yes Status: Acute Category: Medical Code(s): G81.91 - Hemiplegia, unspecified affecting right dominant side (12) Dysphagia Current visit: Yes Status: Acute Category: Medical Code(s): R13.10 - Dysphagia, unspecified The patient's infection will respond to the chosen ABx?: Yes Is the patient receiving the right drug, dose, and route?: Yes Could a more targeted ABx be ordered?: No
--- NOTE | 2017-09-20 05:18 | Progress Note ---
Internal Medicine - PN: Subj *Date: 09/20/17 *Time: 06:14 Interval history: Patient noted to be more agitated overnight, had more wheezes, HR increased to 150, came down after shyann treatment and dose of Cardizem PO and buspirone given to patient. Exam Vital signs and Labs for Last 24 Hours: Temp Pulse Resp BP Pulse Ox 99 F 100 H 36 H 172/96 91 L 09/20/17 03:35 09/20/17 04:00 09/20/17 03:35 09/20/17 03:35 09/20/17 03:35 Laboratory Results - last 24 hr 09/19/17 05:42: POC Glucose 104 09/19/17 06:24: WBC 7.0, RBC 3.16 L, Hgb 10.5 L, Hct 33.8 L, MCV 107.0 H, MCH 33.2 H, MCHC 31.0 L, RDW 14.2, Plt Count 85 L, MPV 11.4 H, Neut % (Auto) 74.8, Lymph % (Auto) 20.4, [place] % (Auto) 4.2, Eos % (Auto) 0.3, Baso % (Auto) 0.3, Neut # (Auto) 5.2, Lymph # (Auto) 1.4, [place] # (Auto) 0.3, Eos # (Auto) 0.0, Baso # (Auto) 0.0 09/19/17 06:24: Sodium 127 L, Potassium 3.6, Chloride 106, Carbon Dioxide 17 L, Anion Gap 7.6, BUN 17 D, Creatinine 1.75 H, Estimated Creat Clear 26, Estimated GFR 28 L, Est GFR ( Amer) 34 L, Glucose 101 09/19/17 11:28: POC Glucose 114 H 09/19/17 16:48: POC Glucose 115 H 09/19/17 20:43: POC Glucose 128 H Vital Signs Temp Pulse Pulse Resp BP Pulse Ox 09/20/17 04:00 100 H 09/20/17 03:36 150 H 09/20/17 03:35 99 F 140 H 36 H 172/96 91 L 09/20/17 00:00 98.8 F 120 H 91 H 20 139/61 93 L 09/19/17 20:00 120 H 09/19/17 19:51 98.8 F 96 H 20 129/47 93 L 09/19/17 18:47 83 09/19/17 18:46 84 09/19/17 16:00 90 09/19/17 15:25 99.5 F 87 20 112/50 95 09/19/17 12:00 90 09/19/17 11:57 85 09/19/17 11:16 99.7 F H 68 22 115/56 95 09/19/17 08:00 90 95 09/19/17 07:26 98.5 F 109 H 22 98/50 95 09/19/17 05:26 86 Intake and Output 09/19/17 09/20/17 09/20/17 19:59 03:59 11:59 Output Total 500 / 500 Balance -500 / -500 Output: Output, Urine Amount (Catheter) 500 / 500 Joshua 500 / 500 I & O for Last 24 hours: Intake & Output 09/17/17 09/18/17 09/19/17 09/20/17 11:59 11:59 11:59 11:59 Intake Total 3896 / 3896 3660 / 3660 2510 / 2510 Output Total 2550 / 2550 1600 / 1600 825 / 825 500 / 500 Balance 1346 / 1346 2060 / 2060 1685 / 1685 -500 / -500 Weight 130 lb 1.164 oz 126 lb 15.78 oz 133 lb 5 oz Microbiology Reports for the Last 24 Hours: Microbiology 09/15/17 20:55 Urine,Catheterized Urine Culture - Preliminary - Constitutional mild distress (increased RR rate, some wheezing) - *Routine HEENT Exam ENT: Present: mucous membranes moist - *Routine Respiratory Exam Present: wheezes, crackles - *Routine Cardiovascular Exam Present: irregularly irregular (HR 96 now) - *Routine Abdominal Exam Present: soft, normoactive bowel sounds. Absent: tenderness - *Routine Neurological Exam Present: alert, motor deficit (minimal movement in right foot, none in right hand) Assessment and Plan (1) UTI (urinary tract infection) Current visit: Yes Status: Acute Qualifiers: Urinary tract infection type: site unspecified Hematuria presence: without hematuria Qualified Code(s): N39.0 - Urinary tract infection, site not specified Category: Medical Code(s): N39.0 - Urinary tract infection, site not specified (2) Renal insufficiency Current visit: Yes Status: Acute Category: Medical Code(s): N28.9 - Disorder of kidney and ureter, unspecified (3) Acute delirium Current visit: Yes Status: Acute Category: Medical Code(s): R41.0 - Disorientation, unspecified (4) A-fib Current visit: Yes Status: Chronic Qualifiers: Atrial fibrillation type: chronic Qualified Code(s): I48.2 - Chronic atrial fibrillation Category: Medical Code(s): I48.91 - Unspecified atrial fibrillation (5) Hypertension Current visit: Yes Status: Chronic Category: Medical Code(s): I10 - Essential (primary) hypertension (6) Diabetes mellitus, type II Current visit: Yes Status: Chronic Category: Medical Code(s): E11.9 - Type 2 diabetes mellitus without complications (7) Hyperlipidemia Current visit: Yes Status: Chronic Category: Medical Code(s): E78.5 - Hyperlipidemia, unspecified (8) History of CVA (cerebrovascular accident) Current visit: Yes Status: Chronic Category: Medical Code(s): Z86.73 - Personal history of transient ischemic attack (TIA), and cerebral infarction without residual deficits (9) Right leg pain Current visit: Yes Status: Acute Category: Medical Code(s): M79.604 - Pain in right leg (10) Pneumonia Current visit: Yes Status: Acute Category: Medical Code(s): J18.9 - Pneumonia, unspecified organism (11) Right hemiparesis Current visit: Yes Status: Acute Category: Medical Code(s): G81.91 - Hemiplegia, unspecified affecting right dominant side (12) Dysphagia Current visit: Yes Status: Acute Category: Medical Code(s): R13.10 - Dysphagia, unspecified (13) Lacunar infarct, acute Current visit: Yes Status: Acute Category: Medical Code(s): I63.9 - Cerebral infarction, unspecified - Assessment and plan all Dx Assessment and Plan for all problems:: Continue with inpatient care, will increase Cardizem dose and schedule Buspirone. Will likely need placement at time of discharge.
[2017-09-21 07:08] LABS: Anion Gap 13.9 mEq/L (5-15); Basophils % 0.3 % (0.1-2.0); Eosinophils % 0.4 % (0.1-12.0); Hematocrit 30.8 % (37.0-47.0); Hemoglobin 9.5 g/dL (12.2-16.2); Lymphocytes # 1.5 K/mm3 (0.7-4.5); Mean Corpuscular HGB Conc 30.8 g/dL (31.8-35.4); Mean Corpuscular Volume 107.1 fl (81-99); Mean Platelet Volume 10.5 fl (7.4-10.4); Monocytes # 0.4 K/mm3 (0.1-1.0); Monocytes % 5.3 % (1.7-9.3); Neutrophils # 5.1 K/mm3 (1.8-7.8); Platelet Count 117 K/mm3 (142-424); Potassium 3.9 mmoL/L (3.5-5.1); Red Blood Count 2.88 M/mm3 (4.20-5.40); Red Cell Distribution Width 14.5 % (11.5-17.5)
--- NOTE | 2017-09-21 08:42 | Progress Note ---
<Rosalee Montiel - Last Filed: 09/21/17 08:38> Internal Medicine - PN: Subj *Date: 09/21/17 *Time: 08:38 Interval history: Patient did eventually respond with yes and no answers. Very lethargic this a.m.. Agitated with movement. Indicates no pain or shortness of breath. Nursing states that she did talk with him yesterday. She has minimal movement of her right leg and is felt to have a flaccid Exam Vital signs and Labs for Last 24 Hours: Temp Pulse Resp BP Pulse Ox 98.0 F 68 26 H 138/53 96 09/21/17 04:00 09/21/17 06:10 09/21/17 04:00 09/21/17 04:00 09/21/17 04:00 Laboratory Results - last 24 hr 09/20/17 11:04: POC Glucose 141 H 09/20/17 16:14: POC Glucose 155 H 09/20/17 19:59: POC Glucose 171 H 09/21/17 06:27: WBC 7.0, RBC 2.88 L, Hgb 9.5 L, Hct 30.8 L, MCV 107.1 H, MCH 33.0 H, MCHC 30.8 L, RDW 14.5, Plt Count 117 L D, MPV 10.5 H, Neut % (Auto) 73.0 , Lymph % (Auto) 21.0, [place] % (Auto) 5.3, Eos % (Auto) 0.4, Baso % (Auto) 0.3, Neut # (Auto) 5.1, Lymph # (Auto) 1.5, [place] # (Auto) 0.4, Eos # (Auto) 0.0, Baso # (Auto) 0.0 09/21/17 06:27: Sodium 141, Potassium 3.9, Chloride 112 H, Carbon Dioxide 19 L, Anion Gap 13.9, BUN 17, Creatinine 1.67 H, Estimated Creat Clear 28, Estimated GFR 30 L, Est GFR ( Amer) 36 L, Glucose 153 H I & O for Last 24 hours: Intake & Output 09/18/17 09/19/17 09/20/17 09/21/17 11:59 11:59 11:59 11:59 Intake Total 3660 / 3660 2510 / 2510 1929 / 1929 860 / 860 Output Total 1600 / 1600 825 / 825 1100 / 1100 1100 / 1100 Balance 2059 / 2059 1685 / 1685 829 / 829 -240 / -240 Weight 126 lb 15.78 oz 133 lb 5 oz 132 lb 4 oz 136 lb Microbiology Reports for the Last 24 Hours: Microbiology 09/15/17 21:20 Blood Blood Culture - Final NO GROWTH AFTER 5 DAYS 09/15/17 21:20 Blood Blood Culture - Final NO GROWTH AFTER 5 DAYS 09/15/17 20:55 Urine,Catheterized Urine Culture - Preliminary - Constitutional no acute distress - *Routine Respiratory Exam Comments: Bilateral crackles and wheezing. - *Routine Cardiovascular Exam Present: irregular rhythm (Monitor showing atrial fibrillation with controlled ventricular response.) - *Routine Abdominal Exam Present: soft Comments: Guarded with palpation of the epigastrium - *Routine Extremities Exam Absent: edema - *Routine Neurological Exam Present: alert Response mostly with yes and no. Very alert after turning. Moves left arm and left leg. Assessment and Plan (1) UTI (urinary tract infection) Current visit: Yes Status: Acute Qualifiers: Urinary tract infection type: site unspecified Hematuria presence: without hematuria Qualified Code(s): N39.0 - Urinary tract infection, site not specified Category: Medical Code(s): N39.0 - Urinary tract infection, site not specified (2) Renal insufficiency Current visit: Yes Status: Acute Category: Medical Code(s): N28.9 - Disorder of kidney and ureter, unspecified (3) Acute delirium Current visit: Yes Status: Acute Category: Medical Code(s): R41.0 - Disorientation, unspecified (4) A-fib Current visit: Yes Status: Chronic Qualifiers: Atrial fibrillation type: chronic Qualified Code(s): I48.2 - Chronic atrial fibrillation Category: Medical Code(s): I48.91 - Unspecified atrial fibrillation (5) Hypertension Current visit: Yes Status: Chronic Category: Medical Code(s): I10 - Essential (primary) hypertension (6) Diabetes mellitus, type II Current visit: Yes Status: Chronic Category: Medical Code(s): E11.9 - Type 2 diabetes mellitus without complications (7) Hyperlipidemia Current visit: Yes Status: Chronic Category: Medical Code(s): E78.5 - Hyperlipidemia, unspecified (8) History of CVA (cerebrovascular accident) Current visit: Yes Status: Chronic Category: Medical Code(s): Z86.73 - Personal history of transient ischemic attack (TIA), and cerebral infarction without residual deficits (9) Right leg pain Current visit: Yes Status: Acute Category: Medical Code(s): M79.604 - Pain in right leg (10) Pneumonia Current visit: Yes Status: Acute Category: Medical Code(s): J18.9 - Pneumonia, unspecified organism (11) Right hemiparesis Current visit: Yes Status: Acute Category: Medical Code(s): G81.91 - Hemiplegia, unspecified affecting right dominant side (12) Dysphagia Current visit: Yes Status: Acute Category: Medical Code(s): R13.10 - Dysphagia, unspecified (13) Lacunar infarct, acute Current visit: Yes Status: Acute Category: Medical Code(s): I63.9 - Cerebral infarction, unspecified - Assessment and plan all Dx Assessment and Plan for all problems:: Speech evaluation reviewed. Patient continues to need PT and OT evaluation. Will continue current treatment. <Kalpesh Marshall - Last Filed: 09/21/17 18:43> Internal Medicine - PN: Subj *Date: 09/21/17 *Time: 18:39 Exam Vital signs and Labs for Last 24 Hours: Temp Pulse Resp BP Pulse Ox 97.9 F 83 18 120/60 97 09/21/17 15:43 09/21/17 15:43 09/21/17 15:43 09/21/17 15:43 09/21/17 15:43 Laboratory Results - last 24 hr 09/20/17 19:59: POC Glucose 171 H 09/21/17 06:27: WBC 7.0, RBC 2.88 L, Hgb 9.5 L, Hct 30.8 L, MCV 107.1 H, MCH 33.0 H, MCHC 30.8 L, RDW 14.5, Plt Count 117 L D, MPV 10.5 H, Neut % (Auto) 73.0 , Lymph % (Auto) 21.0, [place] % (Auto) 5.3, Eos % (Auto) 0.4, Baso % (Auto) 0.3, Neut # (Auto) 5.1, Lymph # (Auto) 1.5, [place] # (Auto) 0.4, Eos # (Auto) 0.0, Baso # (Auto) 0.0 09/21/17 06:27: Sodium 141, Potassium 3.9, Chloride 112 H, Carbon Dioxide 19 L, Anion Gap 13.9, BUN 17, Creatinine 1.67 H, Estimated Creat Clear 28, Estimated GFR 30 L, Est GFR ( Amer) 36 L, Glucose 153 H 09/21/17 11:02: POC Glucose 121 H 09/21/17 16:51: POC Glucose 152 H I & O for Last 24 hours: Intake & Output 09/19/17 09/20/17 09/21/17 09/22/17 11:59 11:59 11:59 11:59 Intake Total 2510 / 2510 1929 / 1929 860 / 860 1280 / 1280 Output Total 825 / 825 1100 / 1100 1100 / 1100 450 / 450 Balance 1685 / 1685 829 / 829 -240 / -240 830 / 830 Weight 133 lb 5 oz 132 lb 4 oz 136 lb Microbiology Reports for the Last 24 Hours: Microbiology 09/15/17 20:55 Urine,Catheterized - Final Not Reportable 09/15/17 20:55 Urine,Catheterized - Final Not Reportable 09/15/17 20:55 Urine,Catheterized - Final Not Reportable 09/15/17 20:55 Urine,Catheterized - Final Not Reportable 09/15/17 20:55 Urine,Catheterized - Final Not Reportable 09/15/17 20:55 Urine,Catheterized - Final Not Reportable 09/15/17 20:55 Urine,Catheterized Urine Culture - Final 09/15/17 21:20 Blood Blood Culture - Final NO GROWTH AFTER 5 DAYS 09/15/17 21:20 Blood Blood Culture - Final NO GROWTH AFTER 5 DAYS Assessment and Plan (1) Lacunar infarct, acute Current visit: Yes Status: Acute Category: Medical Code(s): I63.9 - Cerebral infarction, unspecified (2) Pneumonia Current visit: Yes Status: Acute Category: Medical Code(s): J18.9 - Pneumonia, unspecified organism (3) UTI (urinary tract infection) Current visit: Yes Status: Acute Qualifiers: Urinary tract infection type: site unspecified Hematuria presence: without hematuria Qualified Code(s): N39.0 - Urinary tract infection, site not specified Category: Medical Code(s): N39.0 - Urinary tract infection, site not specified (4) Renal insufficiency Current visit: Yes Status: Acute Category: Medical Code(s): N28.9 - Disorder of kidney and ureter, unspecified (5) Acute delirium Current visit: Yes Status: Acute Category: Medical Code(s): R41.0 - Disorientation, unspecified (6) A-fib Current visit: Yes Status: Chronic Qualifiers: Atrial fibrillation type: chronic Qualified Code(s): I48.2 - Chronic atrial fibrillation Category: Medical Code(s): I48.91 - Unspecified atrial fibrillation (7) Hypertension Current visit: Yes Status: Chronic Category: Medical Code(s): I10 - Essential (primary) hypertension (8) Diabetes mellitus, type II Current visit: Yes Status: Chronic Category: Medical Code(s): E11.9 - Type 2 diabetes mellitus without complications (9) Hyperlipidemia Current visit: Yes Status: Chronic Category: Medical Code(s): E78.5 - Hyperlipidemia, unspecified (10) History of CVA (cerebrovascular accident) Current visit: Yes Status: Chronic Category: Medical Code(s): Z86.73 - Personal history of transient ischemic attack (TIA), and cerebral infarction without residual deficits (11) Right leg pain Current visit: Yes Status: Acute Category: Medical Code(s): M79.604 - Pain in right leg (12) Anemia Current visit: Yes Status: Acute Category: Medical Code(s): D64.9 - Anemia , unspecified - Assessment and plan all Dx Assessment and Plan for all problems:: Pt seen and examined this AM. She is alert but very dysarthric and seems oriented to name only. Right hemiparesis. Speech therapy has modified her diet. H&H has drifted downward. Renal function marginally improved. Continue per orders. PT/OT eval. Care management to look into post hospital placement options for rehab.
--- NOTE | 2017-09-22 08:04 | Progress Note ---
<Rosalee Montiel - Last Filed: 09/22/17 07:57> Internal Medicine - PN: Subj *Date: 09/22/17 *Time: 07:57 Interval history: Patient is able to speak today. She states she is having no pain and is not short of breath. She indicated that she was hungry. PT did come and see patient yesterday. Nurse states the patient was unable to bear weight on her right leg. She has to be fed. Exam Vital signs and Labs for Last 24 Hours: Temp Pulse Resp BP Pulse Ox 97.7 F 85 20 125/57 98 09/22/17 07:23 09/22/17 07:23 09/22/17 07:23 09/22/17 07:23 09/22/17 07:23 Laboratory Results - last 24 hr 09/21/17 11:02: POC Glucose 121 H 09/21/17 16:51: POC Glucose 152 H 09/21/17 20:44: POC Glucose 138 H 09/22/17 06:13: POC Glucose 130 H I & O for Last 24 hours: Intake & Output 09/19/17 09/20/17 09/21/17 09/22/17 11:59 11:59 11:59 11:59 Intake Total 2510 / 2510 1929 / 1929 910 / 910 1400 / 1400 Output Total 825 / 825 1100 / 1100 1100 / 1100 750 / 750 Balance 1685 / 1685 829 / 829 -190 / -190 650 / 650 Weight 133 lb 5 oz 132 lb 4 oz 136 lb 132 lb 6 oz Microbiology Reports for the Last 24 Hours: Microbiology 09/15/17 20:55 Urine,Catheterized - Final Not Reportable 09/15/17 20:55 Urine,Catheterized - Final Not Reportable 09/15/17 20:55 Urine,Catheterized - Final Not Reportable 09/15/17 20:55 Urine,Catheterized - Final Not Reportable 09/15/17 20:55 Urine,Catheterized - Final Not Reportable 09/15/17 20:55 Urine,Catheterized - Final Not Reportable 09/15/17 20:55 Urine,Catheterized Urine Culture - Final - Constitutional no acute distress - *Routine Respiratory Exam Comments: Bilateral coarse rhonchi and scattered wheezing. Clear somewhat with a cough. - *Routine Cardiovascular Exam Present: irregular rhythm - *Routine Abdominal Exam Present: soft, normoactive bowel sounds. Absent: tenderness - *Routine Extremities Exam Absent: edema, calf tenderness Comments: Moves her left arm on command. Cannot move her right arm. She was unable to move her legs. - *Routine Neurological Exam Present: alert Speech is slow but very understandable Assessment and Plan (1) Lacunar infarct, acute Current visit: Yes Status: Acute Category: Medical Code(s): I63.9 - Cerebral infarction, unspecified (2) Pneumonia Current visit: Yes Status: Acute Category: Medical Code(s): J18.9 - Pneumonia, unspecified organism (3) UTI (urinary tract infection) Current visit: Yes Status: Acute Qualifiers: Urinary tract infection type: site unspecified Hematuria presence: without hematuria Qualified Code(s): N39.0 - Urinary tract infection, site not specified Category: Medical Code(s): N39.0 - Urinary tract infection, site not specified (4) Renal insufficiency Current visit: Yes Status: Acute Category: Medical Code(s): N28.9 - Disorder of kidney and ureter, unspecified (5) Acute delirium Current visit: Yes Status: Acute Category: Medical Code(s): R41.0 - Disorientation, unspecified (6) A-fib Current visit: Yes Status: Chronic Qualifiers: Atrial fibrillation type: chronic Qualified Code(s): I48.2 - Chronic atrial fibrillation Category: Medical Code(s): I48.91 - Unspecified atrial fibrillation (7) Hypertension Current visit: Yes Status: Chronic Category: Medical Code(s): I10 - Essential (primary) hypertension (8) Diabetes mellitus, type II Current visit: Yes Status: Chronic Category: Medical Code(s): E11.9 - Type 2 diabetes mellitus without complications (9) Hyperlipidemia Current visit: Yes Status: Chronic Category: Medical Code(s): E78.5 - Hyperlipidemia, unspecified (10) History of CVA (cerebrovascular accident) Current visit: Yes Status: Chronic Category: Medical Code(s): Z86.73 - Personal history of transient ischemic attack (TIA), and cerebral infarction without residual deficits (11) Right leg pain Current visit: Yes Status: Acute Category: Medical Code(s): M79.604 - Pain in right leg (12) Anemia Current visit: Yes Status: Acute Category: Medical Code(s): D64.9 - Anemia , unspecified - Assessment and plan all Dx Assessment and Plan for all problems:: Care management working on placement. Needs pulmonary toilet every 2 hours during the day. Continue with neb treatments and antibiotics. <Rolando Elder - Last Filed: 09/22/17 08:21> Internal Medicine - PN: Subj *Date: 09/22/17 *Time: 08:21 Exam Vital signs and Labs for Last 24 Hours: Temp Pulse Resp BP Pulse Ox 97.7 F 85 20 125/57 98 09/22/17 07:23 09/22/17 07:23 09/22/17 07:23 09/22/17 07:23 09/22/17 07:23 Laboratory Results - last 24 hr 09/21/17 11:02: POC Glucose 121 H 09/21/17 16:51: POC Glucose 152 H 09/21/17 20:44: POC Glucose 138 H 09/22/17 06:13: POC Glucose 130 H I & O for Last 24 hours: Intake & Output 09/19/17 09/20/17 09/21/17 09/22/17 11:59 11:59 11:59 11:59 Intake Total 2510 / 2510 1929 / 1929 910 / 910 1400 / 1400 Output Total 825 / 825 1100 / 1100 1100 / 1100 750 / 750 Balance 1685 / 1685 829 / 829 -190 / -190 650 / 650 Weight 133 lb 5 oz 132 lb 4 oz 136 lb 132 lb 6 oz Microbiology Reports for the Last 24 Hours: Microbiology 09/15/17 20:55 Urine,Catheterized - Final Not Reportable 09/15/17 20:55 Urine,Catheterized - Final Not Reportable 09/15/17 20:55 Urine,Catheterized - Final Not Reportable 09/15/17 20:55 Urine,Catheterized - Final Not Reportable 09/15/17 20:55 Urine,Catheterized - Final Not Reportable 09/15/17 20:55 Urine,Catheterized - Final Not Reportable 09/15/17 20:55 Urine,Catheterized Urine Culture - Final Assessment and Plan (1) Lacunar infarct, acute Current visit: Yes Status: Acute Category: Medical Code(s): I63.9 - Cerebral infarction, unspecified (2) Pneumonia Current visit: Yes Status: Acute Category: Medical Code(s): J18.9 - Pneumonia, unspecified organism (3) UTI (urinary tract infection) Current visit: Yes Status: Acute Qualifiers: Urinary tract infection type: site unspecified Hematuria presence: without hematuria Qualified Code(s): N39.0 - Urinary tract infection, site not specified Category: Medical Code(s): N39.0 - Urinary tract infection, site not specified (4) Renal insufficiency Current visit: Yes Status: Acute Category: Medical Code(s): N28.9 - Disorder of kidney and ureter, unspecified (5) Acute delirium Current visit: Yes Status: Acute Category: Medical Code(s): R41.0 - Disorientation, unspecified (6) A-fib Current visit: Yes Status: Chronic Qualifiers: Atrial fibrillation type: chronic Qualified Code(s): I48.2 - Chronic atrial fibrillation Category: Medical Code(s): I48.91 - Unspecified atrial fibrillation (7) Hypertension Current visit: Yes Status: Chronic Category: Medical Code(s): I10 - Essential (primary) hypertension (8) Diabetes mellitus, type II Current visit: Yes Status: Chronic Category: Medical Code(s): E11.9 - Type 2 diabetes mellitus without complications (9) Hyperlipidemia Current visit: Yes Status: Chronic Category: Medical Code(s): E78.5 - Hyperlipidemia, unspecified (10) History of CVA (cerebrovascular accident) Current visit: Yes Status: Chronic Category: Medical Code(s): Z86.73 - Personal history of transient ischemic attack (TIA), and cerebral infarction without residual deficits (11) Right leg pain Current visit: Yes Status: Acute Category: Medical Code(s): M79.604 - Pain in right leg (12) Anemia Current visit: Yes Status: Acute Category: Medical Code(s): D64.9 - Anemia , unspecified - Assessment and plan all Dx Assessment and Plan for all problems:: Saw patient, agree with above note.
--- NOTE | 2017-09-23 08:04 | Progress Note ---
<Kitty Mccray - Last Filed: 09/23/17 08:02> Internal Medicine - PN: Subj *Date: 09/23/17 *Time: 08:02 Interval history: Patient is fatigued this morning. She states she just wants to sleep. She denies any pain. She states she slept all night and ate her breakfast this morning. Exam Vital signs and Labs for Last 24 Hours: Temp Pulse Resp BP Pulse Ox 98.4 F 103 H 20 135/65 94 L 09/23/17 07:51 09/23/17 07:51 09/23/17 07:51 09/23/17 07:51 09/23/17 07:51 Laboratory Results - last 24 hr 09/22/17 11:16: POC Glucose 143 H 09/22/17 16:47: POC Glucose 118 H 09/22/17 20:34: POC Glucose 133 H 09/23/17 05:28: POC Glucose 108 I & O for Last 24 hours: Intake & Output 09/20/17 09/21/17 09/22/17 09/23/17 11:59 11:59 11:59 11:59 Intake Total 1929 / 1929 910 / 910 1450 / 1450 1065 / 1065 Output Total 1100 / 1100 1100 / 1100 750 / 750 225 / 225 Balance 829 / 829 -190 / -190 700 / 700 840 / 840 Weight 132 lb 4 oz 136 lb 132 lb 6 oz 133 lb 2 oz - Constitutional no acute distress - *Routine Respiratory Exam Present: rhonchi, wheezes, crackles (basilar) - *Routine Cardiovascular Exam Present: RRR - *Routine Abdominal Exam Present: soft, normoactive bowel sounds. Absent: tenderness - *Routine Extremities Exam Absent: edema Assessment and Plan (1) Lacunar infarct, acute Current visit: Yes Status: Acute Category: Medical Code(s): I63.9 - Cerebral infarction, unspecified (2) Pneumonia Current visit: Yes Status: Acute Category: Medical Code(s): J18.9 - Pneumonia, unspecified organism (3) UTI (urinary tract infection) Current visit: Yes Status: Acute Qualifiers: Urinary tract infection type: site unspecified Hematuria presence: without hematuria Qualified Code(s): N39.0 - Urinary tract infection, site not specified Category: Medical Code(s): N39.0 - Urinary tract infection, site not specified (4) Renal insufficiency Current visit: Yes Status: Acute Category: Medical Code(s): N28.9 - Disorder of kidney and ureter, unspecified (5) Acute delirium Current visit: Yes Status: Acute Category: Medical Code(s): R41.0 - Disorientation, unspecified (6) A-fib Current visit: Yes Status: Chronic Qualifiers: Atrial fibrillation type: chronic Qualified Code(s): I48.2 - Chronic atrial fibrillation Category: Medical Code(s): I48.91 - Unspecified atrial fibrillation (7) Hypertension Current visit: Yes Status: Chronic Category: Medical Code(s): I10 - Essential (primary) hypertension (8) Diabetes mellitus, type II Current visit: Yes Status: Chronic Category: Medical Code(s): E11.9 - Type 2 diabetes mellitus without complications (9) Hyperlipidemia Current visit: Yes Status: Chronic Category: Medical Code(s): E78.5 - Hyperlipidemia, unspecified (10) History of CVA (cerebrovascular accident) Current visit: Yes Status: Chronic Category: Medical Code(s): Z86.73 - Personal history of transient ischemic attack (TIA), and cerebral infarction without residual deficits (11) Right leg pain Current visit: Yes Status: Acute Category: Medical Code(s): M79.604 - Pain in right leg (12) Anemia Current visit: Yes Status: Acute Category: Medical Code(s): D64.9 - Anemia , unspecified - Assessment and plan all Dx Assessment and Plan for all problems:: We will continue current treatment and get labs tomorrow to check her H&H. Will discuss further care with Dr. Elder. <Rolando Elder - Last Filed: 09/23/17 08:45> Internal Medicine - PN: Subj *Date: 09/23/17 *Time: 08:44 Exam Vital signs and Labs for Last 24 Hours: Temp Pulse Resp BP Pulse Ox 98.4 F 103 H 20 135/65 94 L 09/23/17 07:51 09/23/17 07:51 09/23/17 07:51 09/23/17 07:51 09/23/17 07:51 Laboratory Results - last 24 hr 09/22/17 11:16: POC Glucose 143 H 09/22/17 16:47: POC Glucose 118 H 09/22/17 20:34: POC Glucose 133 H 09/23/17 05:28: POC Glucose 108 I & O for Last 24 hours: Intake & Output 09/20/17 09/21/17 09/22/17 09/23/17 11:59 11:59 11:59 11:59 Intake Total 1929 / 1929 910 / 910 1450 / 1450 1065 / 1065 Output Total 1100 / 1100 1100 / 1100 750 / 750 225 / 225 Balance 829 / 829 -190 / -190 700 / 700 840 / 840 Weight 132 lb 4 oz 136 lb 132 lb 6 oz 133 lb 2 oz Assessment and Plan (1) Lacunar infarct, acute Current visit: Yes Status: Acute Category: Medical Code(s): I63.9 - Cerebral infarction, unspecified (2) Pneumonia Current visit: Yes Status: Acute Category: Medical Code(s): J18.9 - Pneumonia, unspecified organism (3) UTI (urinary tract infection) Current visit: Yes Status: Acute Qualifiers: Urinary tract infection type: site unspecified Hematuria presence: without hematuria Qualified Code(s): N39.0 - Urinary tract infection, site not specified Category: Medical Code(s): N39.0 - Urinary tract infection, site not specified (4) Renal insufficiency Current visit: Yes Status: Acute Category: Medical Code(s): N28.9 - Disorder of kidney and ureter, unspecified (5) Acute delirium Current visit: Yes Status: Acute Category: Medical Code(s): R41.0 - Disorientation, unspecified (6) A-fib Current visit: Yes Status: Chronic Qualifiers: Atrial fibrillation type: chronic Qualified Code(s): I48.2 - Chronic atrial fibrillation Category: Medical Code(s): I48.91 - Unspecified atrial fibrillation (7) Hypertension Current visit: Yes Status: Chronic Category: Medical Code(s): I10 - Essential (primary) hypertension (8) Diabetes mellitus, type II Current visit: Yes Status: Chronic Category: Medical Code(s): E11.9 - Type 2 diabetes mellitus without complications (9) Hyperlipidemia Current visit: Yes Status: Chronic Category: Medical Code(s): E78.5 - Hyperlipidemia, unspecified (10) History of CVA (cerebrovascular accident) Current visit: Yes Status: Chronic Category: Medical Code(s): Z86.73 - Personal history of transient ischemic attack (TIA), and cerebral infarction without residual deficits (11) Right leg pain Current visit: Yes Status: Acute Category: Medical Code(s): M79.604 - Pain in right leg (12) Anemia Current visit: Yes Status: Acute Category: Medical Code(s): D64.9 - Anemia , unspecified - Assessment and plan all Dx Assessment and Plan for all problems:: Saw patient, agree with above note, had a long discussion with patient's daughter last night about treatment options after discharge.
[2017-09-24 06:04] LABS: Basophils % 0.3 % (0.1-2.0); Eosinophils # 0.1 K/mm3 (0.0-0.4); Eosinophils % 1.1 % (0.1-12.0); Hematocrit 30.2 % (37.0-47.0); Hemoglobin 9.1 g/dL (12.2-16.2); Lymphocytes # 1.3 K/mm3 (0.7-4.5); Lymphocytes % 15.8 K/mm3 (10-50); Mean Corpuscular HGB Conc 30.2 g/dL (31.8-35.4); Mean Corpuscular Volume 109.4 fl (81-99); Mean Platelet Volume 9.7 fl (7.4-10.4); Monocytes # 0.5 K/mm3 (0.1-1.0); Monocytes % 5.5 % (1.7-9.3); Neutrophils # 6.6 K/mm3 (1.8-7.8); Neutrophils % 77.3 % (37.0-80.0); Platelet Count 167 K/mm3 (142-424); Red Blood Count 2.76 M/mm3 (4.20-5.40); Red Cell Distribution Width 15.1 % (11.5-17.5); White Blood Count 8.5 K/mm3 (4.8-10.8)
[2017-09-24 06:12] LABS: Albumin Level 2.3 gm/dL (3.4-5.0); Albumin/Globulin Ratio 0.5 (1.1-1.8); Anion Gap 14.1 mEq/L (5-15); Bilirubin,Total 0.5 mg/dL (0.2-1.0); Calcium 8.5 mg/dL (8.5-10.1); Globulin 4.3 gm/dl (1.3-3.2); Potassium 4.1 mmoL/L (3.5-5.1); Total Protein,Serum 6.6 gm/dL (6.4-8.2)
--- NOTE | 2017-09-24 08:11 | Progress Note ---
<Kitty Mccray - Last Filed: 09/24/17 08:08> Internal Medicine - PN: Subj *Date: 09/24/17 *Time: 08:08 Interval history: Patient is once again lethargic this morning. Her family member states she did sleep last night and ate only a small amount of her breakfast. She denies any pain this morning. She states she is tired. Exam Vital signs and Labs for Last 24 Hours: Temp Pulse Resp BP Pulse Ox 98.8 F 97 H 20 130/56 95 09/24/17 07:23 09/24/17 07:23 09/24/17 07:23 09/24/17 07:23 09/24/17 07:23 Laboratory Results - last 24 hr 09/23/17 11:26: POC Glucose 129 H 09/23/17 16:53: POC Glucose 152 H 09/23/17 21:33: POC Glucose 115 H 09/24/17 05:31: POC Glucose 120 H 09/24/17 05:35: WBC 8.5, RBC 2.76 L, Hgb 9.1 L, Hct 30.2 L, MCV 109.4 H, MCH 33.0 H, MCHC 30.2 L, RDW 15.1, Plt Count 167 D, MPV 9.7, Neut % (Auto) 77.3, Lymph % (Auto) 15.8, [place] % (Auto) 5.5, Eos % (Auto) 1.1, Baso % (Auto) 0.3, Neut # (Auto) 6.6, Lymph # (Auto) 1.3, [place] # (Auto) 0.5, Eos # (Auto) 0.1, Baso # (Auto) 0.0 09/24/17 05:35: Sodium 140, Potassium 4.1, Chloride 109 H, Carbon Dioxide 21, Anion Gap 14.1, BUN 19 H, Creatinine 1.48 H, Estimated Creat Clear 32, Estimated GFR 34 L, Est GFR ( Amer) 41 L, Glucose 118 H, Calcium 8.5, Total Bilirubin 0.5, AST 20, ALT 19, Alkaline Phosphatase 89, Total Protein 6.6 , Albumin 2.3 L, Globulin 4.3 H, Albumin/Globulin Ratio 0.5 L I & O for Last 24 hours: Intake & Output 05/2909/22/17 09/23/17 09/24/17 11:59 11:59 11:59 11:59 Intake Total 910 / 910 1450 / 1450 1115 / 1115 1650 / 1650 Output Total 1100 / 1100 750 / 750 225 / 225 2100 / 2100 Balance -190 / -190 700 / 700 890 / 890 -450 / -450 Weight 136 lb 132 lb 6 oz 133 lb 2 oz 139 lb 8 oz Microbiology Reports for the Last 24 Hours: Microbiology 09/15/17 20:55 Urine,Catheterized - Preliminary 09/15/17 20:55 Urine,Catheterized - Preliminary 09/15/17 20:55 Urine,Catheterized - Final - Constitutional no acute distress (but lethargic) - *Routine Respiratory Exam Present: rhonchi, wheezes, crackles - *Routine Cardiovascular Exam Present: RRR - *Routine Abdominal Exam Present: soft, normoactive bowel sounds. Absent: tenderness - *Routine Extremities Exam Present: edema Assessment and Plan (1) Lacunar infarct, acute Current visit: Yes Status: Acute Category: Medical Code(s): I63.9 - Cerebral infarction, unspecified (2) Pneumonia Current visit: Yes Status: Acute Category: Medical Code(s): J18.9 - Pneumonia, unspecified organism (3) UTI (urinary tract infection) Current visit: Yes Status: Acute Qualifiers: Urinary tract infection type: site unspecified Hematuria presence: without hematuria Qualified Code(s): N39.0 - Urinary tract infection, site not specified Category: Medical Code(s): N39.0 - Urinary tract infection, site not specified (4) Renal insufficiency Current visit: Yes Status: Acute Category: Medical Code(s): N28.9 - Disorder of kidney and ureter, unspecified (5) Acute delirium Current visit: Yes Status: Acute Category: Medical Code(s): R41.0 - Disorientation, unspecified (6) A-fib Current visit: Yes Status: Chronic Qualifiers: Atrial fibrillation type: chronic Qualified Code(s): I48.2 - Chronic atrial fibrillation Category: Medical Code(s): I48.91 - Unspecified atrial fibrillation (7) Hypertension Current visit: Yes Status: Chronic Category: Medical Code(s): I10 - Essential (primary) hypertension (8) Diabetes mellitus, type II Current visit: Yes Status: Chronic Category: Medical Code(s): E11.9 - Type 2 diabetes mellitus without complications (9) Hyperlipidemia Current visit: Yes Status: Chronic Category: Medical Code(s): E78.5 - Hyperlipidemia, unspecified (10) History of CVA (cerebrovascular accident) Current visit: Yes Status: Chronic Category: Medical Code(s): Z86.73 - Personal history of transient ischemic attack (TIA), and cerebral infarction without residual deficits (11) Right leg pain Current visit: Yes Status: Acute Category: Medical Code(s): M79.604 - Pain in right leg (12) Anemia Current visit: Yes Status: Acute Category: Medical Code(s): D64.9 - Anemia , unspecified - Assessment and plan all Dx Assessment and Plan for all problems:: [facility] has declined to take the patient for rehab. The family needs to decide if they would like for her to have a PEG tube. They also need to decide where they would like for her to go for rehab. Will discuss further care with Dr. Elder. <Rolando Elder - Last Filed: 09/24/17 09:28> Internal Medicine - PN: Subj *Date: 09/24/17 *Time: 09:27 Exam Vital signs and Labs for Last 24 Hours: Temp Pulse Resp BP Pulse Ox 98.8 F 90 20 130/56 95 09/24/17 07:23 09/24/17 08:00 09/24/17 07:23 09/24/17 07:23 09/24/17 07:23 Laboratory Results - last 24 hr 09/23/17 11:26: POC Glucose 129 H 09/23/17 16:53: POC Glucose 152 H 09/23/17 21:33: POC Glucose 115 H 09/24/17 05:31: POC Glucose 120 H 09/24/17 05:35: WBC 8.5, RBC 2.76 L, Hgb 9.1 L, Hct 30.2 L, MCV 109.4 H, MCH 33.0 H, MCHC 30.2 L, RDW 15.1, Plt Count 167 D, MPV 9.7, Neut % (Auto) 77.3, Lymph % (Auto) 15.8, [place] % (Auto) 5.5, Eos % (Auto) 1.1, Baso % (Auto) 0.3, Neut # (Auto) 6.6, Lymph # (Auto) 1.3, [place] # (Auto) 0.5, Eos # (Auto) 0.1, Baso # (Auto) 0.0 09/24/17 05:35: Sodium 140, Potassium 4.1, Chloride 109 H, Carbon Dioxide 21, Anion Gap 14.1, BUN 19 H, Creatinine 1.48 H, Estimated Creat Clear 32, Estimated GFR 34 L, Est GFR ( Amer) 41 L, Glucose 118 H, Calcium 8.5, Total Bilirubin 0.5, AST 20, ALT 19, Alkaline Phosphatase 89, Total Protein 6.6 , Albumin 2.3 L, Globulin 4.3 H, Albumin/Globulin Ratio 0.5 L I & O for Last 24 hours: Intake & Output 09/21/17 09/22/17 09/23/17 09/24/17 11:59 11:59 11:59 11:59 Intake Total 910 / 910 1450 / 1450 1115 / 1115 1650 / 1650 Output Total 1100 / 1100 750 / 750 225 / 225 2100 / 2100 Balance -190 / -190 700 / 700 890 / 890 -450 / -450 Weight 136 lb 132 lb 6 oz 133 lb 2 oz 139 lb 8 oz Microbiology Reports for the Last 24 Hours: Microbiology 09/15/17 20:55 Urine,Catheterized - Preliminary 09/15/17 20:55 Urine,Catheterized - Preliminary 09/15/17 20:55 Urine,Catheterized - Final Assessment and Plan (1) Lacunar infarct, acute Current visit: Yes Status: Acute Category: Medical Code(s): I63.9 - Cerebral infarction, unspecified (2) Pneumonia Current visit: Yes Status: Acute Category: Medical Code(s): J18.9 - Pneumonia, unspecified organism (3) UTI (urinary tract infection) Current visit: Yes Status: Acute Qualifiers: Urinary tract infection type: site unspecified Hematuria presence: without hematuria Qualified Code(s): N39.0 - Urinary tract infection, site not specified Category: Medical Code(s): N39.0 - Urinary tract infection, site not specified (4) Renal insufficiency Current visit: Yes Status: Acute Category: Medical Code(s): N28.9 - Disorder of kidney and ureter, unspecified (5) Acute delirium Current visit: Yes Status: Acute Category: Medical Code(s): R41.0 - Disorientation, unspecified (6) A-fib Current visit: Yes Status: Chronic Qualifiers: Atrial fibrillation type: chronic Qualified Code(s): I48.2 - Chronic atrial fibrillation Category: Medical Code(s): I48.91 - Unspecified atrial fibrillation (7) Hypertension Current visit: Yes Status: Chronic Category: Medical Code(s): I10 - Essential (primary) hypertension (8) Diabetes mellitus, type II Current visit: Yes Status: Chronic Category: Medical Code(s): E11.9 - Type 2 diabetes mellitus without complications (9) Hyperlipidemia Current visit: Yes Status: Chronic Category: Medical Code(s): E78.5 - Hyperlipidemia, unspecified (10) History of CVA (cerebrovascular accident) Current visit: Yes Status: Chronic Category: Medical Code(s): Z86.73 - Personal history of transient ischemic attack (TIA), and cerebral infarction without residual deficits (11) Right leg pain Current visit: Yes Status: Acute Category: Medical Code(s): M79.604 - Pain in right leg (12) Anemia Current visit: Yes Status: Acute Category: Medical Code(s): D64.9 - Anemia , unspecified - Assessment and plan all Dx Assessment and Plan for all problems:: Saw patient, agree with above note. Discussed case at length with patient's grand daughter.
--- NOTE | 2017-09-25 15:33 | Progress Note ---
Internal Medicine - PN: Subj *Date: 09/25/17 *Time: 15:29 Interval history: She does not arouse during exam. Sallow complection. No respiratory distress, but wheezes and rhonchi present. Macrocytic anemia noted Exam Vital signs and Labs for Last 24 Hours: Temp Pulse Resp BP Pulse Ox 98.4 F 68 20 133/59 97 09/25/17 15:14 09/25/17 15:14 09/25/17 15:14 09/25/17 15:14 09/25/17 15:14 Laboratory Results - last 24 hr 09/24/17 16:20: POC Glucose 121 H 09/24/17 20:51: POC Glucose 106 09/25/17 05:55: POC Glucose 90 09/25/17 11:02: POC Glucose 89 Laboratory Tests 09/24/17 05:35 WBC 8.5 RBC 2.76 L Hgb 9.1 L Hct 30.2 L MCV 109.4 H MCH 33.0 H MCHC 30.2 L I & O for Last 24 hours: Intake & Output 09/23/17 09/24/17 09/25/17 09/26/17 11:59 11:59 11:59 11:59 Intake Total 1115 / 1115 1700 / 1700 1644 / 1644 Output Total 225 / 225 2100 / 2100 1050 / 1050 Balance 890 / 890 -400 / -400 594 / 594 Weight 133 lb 2 oz 139 lb 8 oz 148 lb 2 oz Microbiology Reports for the Last 24 Hours: Microbiology 09/24/17 10:50 Sputum - Expectorated Sputum Gram Stain - Final 09/24/17 10:50 Sputum - Expectorated Sputum Sputum Culture - Final - Constitutional no acute distress, somnolent - *Routine Respiratory Exam Present: rhonchi, wheezes. Absent: respiratory distress - *Routine Cardiovascular Exam Present: irregular rhythm - *Routine Extremities Exam Absent: edema Assessment and Plan (1) Lacunar infarct, acute Current visit: Yes Status: Acute Category: Medical Code(s): I63.9 - Cerebral infarction, unspecified (2) Pneumonia Current visit: Yes Status: Acute Category: Medical Code(s): J18.9 - Pneumonia, unspecified organism (3) UTI (urinary tract infection) Current visit: Yes Status: Acute Qualifiers: Urinary tract infection type: site unspecified Hematuria presence: without hematuria Qualified Code(s): N39.0 - Urinary tract infection, site not specified Category: Medical Code(s): N39.0 - Urinary tract infection, site not specified (4) Renal insufficiency Current visit: Yes Status: Acute Category: Medical Code(s): N28.9 - Disorder of kidney and ureter, unspecified (5) Acute delirium Current visit: Yes Status: Acute Category: Medical Code(s): R41.0 - Disorientation, unspecified (6) A-fib Current visit: Yes Status: Chronic Qualifiers: Atrial fibrillation type: chronic Qualified Code(s): I48.2 - Chronic atrial fibrillation Category: Medical Code(s): I48.91 - Unspecified atrial fibrillation (7) Hypertension Current visit: Yes Status: Chronic Category: Medical Code(s): I10 - Essential (primary) hypertension (8) Diabetes mellitus, type II Current visit: Yes Status: Chronic Category: Medical Code(s): E11.9 - Type 2 diabetes mellitus without complications (9) Hyperlipidemia Current visit: Yes Status: Chronic Category: Medical Code(s): E78.5 - Hyperlipidemia, unspecified (10) History of CVA (cerebrovascular accident) Current visit: Yes Status: Chronic Category: Medical Code(s): Z86.73 - Personal history of transient ischemic attack (TIA), and cerebral infarction without residual deficits (11) Right leg pain Current visit: Yes Status: Acute Category: Medical Code(s): M79.604 - Pain in right leg (12) Anemia Current visit: Yes Status: Acute Category: Medical Code(s): D64.9 - Anemia , unspecified - Assessment and plan all Dx Assessment and Plan for all problems:: Check Vitamin B12 and Folate. Continue care.
[2017-09-26 06:49] LABS: Basophils % 0.2 % (0.1-2.0); Eosinophils # 0.1 K/mm3 (0.0-0.4); Eosinophils % 0.9 % (0.1-12.0); Hemoglobin 8.3 g/dL (12.2-16.2); Lymphocytes # 1.3 K/mm3 (0.7-4.5); Lymphocytes % 15.9 K/mm3 (10-50); Mean Corpuscular HGB Conc 30.1 g/dL (31.8-35.4); Mean Corpuscular Hemoglobin 32.6 pg (27.0-31.2); Mean Corpuscular Volume 108.3 fl (81-99); Mean Platelet Volume 9.3 fl (7.4-10.4); Monocytes # 0.3 K/mm3 (0.1-1.0); Monocytes % 4.3 % (1.7-9.3); Neutrophils # 6.1 K/mm3 (1.8-7.8); Neutrophils % 78.6 % (37.0-80.0); Platelet Count 176 K/mm3 (142-424); Red Blood Count 2.55 M/mm3 (4.20-5.40); Red Cell Distribution Width 14.7 % (11.5-17.5); White Blood Count 7.8 K/mm3 (4.8-10.8)
[2017-09-26 06:55] LABS: Hematocrit 27.7 % (37.0-47.0)
[2017-09-26 07:15] LABS: Albumin/Globulin Ratio 0.5 (1.1-1.8); Anion Gap 14.9 mEq/L (5-15); Bilirubin,Total 0.4 mg/dL (0.2-1.0); Calcium 8.2 mg/dL (8.5-10.1); Globulin 4.1 gm/dl (1.3-3.2); Potassium 3.9 mmoL/L (3.5-5.1); Total Protein,Serum 6.1 gm/dL (6.4-8.2)
--- NOTE | 2017-09-26 11:30 | Progress Note ---
Internal Medicine - PN: Subj *Date: 09/26/17 *Time: 11:29 Exam Vital signs and Labs for Last 24 Hours: Temp Pulse Resp BP Pulse Ox 98.5 F 70 18 133/70 94 L 09/26/17 07:42 09/26/17 07:42 09/26/17 03:58 09/26/17 07:42 09/26/17 07:42 Laboratory Results - last 24 hr 09/25/17 11:02: POC Glucose 89 09/25/17 16:12: POC Glucose 116 H 09/25/17 21:09: POC Glucose 114 H 09/26/17 06:10: POC Glucose 107 09/26/17 06:21: WBC 7.8, RBC 2.55 L, Hgb 8.3 L, Hct 27.7 L, MCV 108.3 H, MCH 32.6 H, MCHC 30.1 L, RDW 14.7, Plt Count 176, MPV 9.3, Neut % (Auto) 78.6, Lymph % (Auto) 15.9, [place] % (Auto) 4.3, Eos % (Auto) 0.9, Baso % (Auto) 0.2, Neut # (Auto) 6.1, Lymph # (Auto) 1.3, [place] # (Auto) 0.3, Eos # (Auto) 0.1, Baso # (Auto) 0.0 09/26/17 06:21: Sodium 141, Potassium 3.9, Chloride 111 H, Carbon Dioxide 19 L, Anion Gap 14.9, BUN 17, Creatinine 1.34 H, Estimated Creat Clear 38, Estimated GFR 38 L, Est GFR ( Amer) 47 L, Glucose 106, Calcium 8.2 L, Total Bilirubin 0.4, AST 18, ALT 17, Alkaline Phosphatase 85, Total Protein 6.1 L, Albumin 2.0 L, Globulin 4.1 H, Albumin/Globulin Ratio 0.5 L I & O for Last 24 hours: Intake & Output 09/23/17 09/24/17 09/25/17 09/26/17 23:59 23:59 23:59 23:59 Intake Total 610 / 610 2500 / 2500 2732 / 2732 Output Total 350 / 350 2250 / 2250 1150 / 1150 600 / 600 Balance 260 / 260 250 / 250 1582 / 1582 -600 / -600 Weight 60.384 kg 63.276 kg 67.188 kg 66.933 kg Assessment and Plan (1) Lacunar infarct, acute Current visit: Yes Status: Acute Category: Medical Code(s): I63.9 - Cerebral infarction, unspecified (2) Pneumonia Current visit: Yes Status: Acute Category: Medical Code(s): J18.9 - Pneumonia, unspecified organism (3) UTI (urinary tract infection) Current visit: Yes Status: Acute Qualifiers: Urinary tract infection type: site unspecified Hematuria presence: without hematuria Qualified Code(s): N39.0 - Urinary tract infection, site not specified Category: Medical Code(s): N39.0 - Urinary tract infection, site not specified (4) Renal insufficiency Current visit: Yes Status: Acute Category: Medical Code(s): N28.9 - Disorder of kidney and ureter, unspecified (5) Acute delirium Current visit: Yes Status: Acute Category: Medical Code(s): R41.0 - Disorientation, unspecified (6) A-fib Current visit: Yes Status: Chronic Qualifiers: Atrial fibrillation type: chronic Qualified Code(s): I48.2 - Chronic atrial fibrillation Category: Medical Code(s): I48.91 - Unspecified atrial fibrillation (7) Hypertension Current visit: Yes Status: Chronic Category: Medical Code(s): I10 - Essential (primary) hypertension (8) Diabetes mellitus, type II Current visit: Yes Status: Chronic Category: Medical Code(s): E11.9 - Type 2 diabetes mellitus without complications (9) Hyperlipidemia Current visit: Yes Status: Chronic Category: Medical Code(s): E78.5 - Hyperlipidemia, unspecified (10) History of CVA (cerebrovascular accident) Current visit: Yes Status: Chronic Category: Medical Code(s): Z86.73 - Personal history of transient ischemic attack (TIA), and cerebral infarction without residual deficits (11) Right leg pain Current visit: Yes Status: Acute Category: Medical Code(s): M79.604 - Pain in right leg (12) Anemia Current visit: Yes Status: Acute Category: Medical Code(s): D64.9 - Anemia , unspecified The patient's infection will respond to the chosen ABx?: Yes (CLINDAMYCIN) Is the patient receiving the right drug, dose, and route?: Yes Could a more targeted ABx be ordered?: No
--- NOTE | 2017-09-26 13:02 | Progress Note ---
Internal Medicine - PN: Subj *Date: 09/26/17 *Time: 12:58 Interval history: Today she is more alert. Her color actually looks better despite her anemia! Exam Vital signs and Labs for Last 24 Hours: Temp Pulse Resp BP Pulse Ox 98.7 F 85 20 125/70 94 L 09/26/17 11:38 09/26/17 11:38 09/26/17 11:38 09/26/17 11:38 09/26/17 11:38 Laboratory Results - last 24 hr 09/25/17 16:12: POC Glucose 116 H 09/25/17 21:09: POC Glucose 114 H 09/26/17 06:10: POC Glucose 107 09/26/17 06:21: WBC 7.8, RBC 2.55 L, Hgb 8.3 L, Hct 27.7 L, MCV 108.3 H, MCH 32.6 H, MCHC 30.1 L, RDW 14.7, Plt Count 176, MPV 9.3, Neut % (Auto) 78.6, Lymph % (Auto) 15.9, [place] % (Auto) 4.3, Eos % (Auto) 0.9, Baso % (Auto) 0.2, Neut # (Auto) 6.1, Lymph # (Auto) 1.3, [place] # (Auto) 0.3, Eos # (Auto) 0.1, Baso # (Auto) 0.0 09/26/17 06:21: Sodium 141, Potassium 3.9, Chloride 111 H, Carbon Dioxide 19 L, Anion Gap 14.9, BUN 17, Creatinine 1.34 H, Estimated Creat Clear 38, Estimated GFR 38 L, Est GFR ( Amer) 47 L, Glucose 106, Calcium 8.2 L, Total Bilirubin 0.4, AST 18, ALT 17, Alkaline Phosphatase 85, Total Protein 6.1 L, Albumin 2.0 L, Globulin 4.1 H, Albumin/Globulin Ratio 0.5 L 09/26/17 11:59: POC Glucose 137 H Laboratory Tests 09/19/17 09/21/17 09/21/17 06:24 06:27 06:27 WBC 7.0 7.0 Hgb 10.5 L 9.5 L Hct 33.8 L 30.8 L Plt Count 85 L Sodium Potassium 3.9 BUN 17 Creatinine 1.67 H 09/24/17 09/24/17 09/26/17 05:35 05:35 06:21 WBC 8.5 7.8 Hgb 9.1 L 8.3 L Hct 30.2 L 27.7 L Plt Count 176 Sodium Potassium 4.1 BUN 19 H Creatinine 1.48 H 09/26/17 06:21 WBC Hgb Hct Plt Count Sodium 141 Potassium 3.9 BUN 17 Creatinine 1.34 H I & O for Last 24 hours: Intake & Output 09/24/17 09/25/17 09/26/17 09/27/17 11:59 11:59 11:59 11:59 Intake Total 1700 / 1700 1694 / 1694 1888 / 1888 Output Total 2100 / 2100 1050 / 1050 1200 / 1200 Balance -400 / -400 644 / 644 688 / 688 Weight 139 lb 8 oz 148 lb 2 oz 147 lb 9 oz - Constitutional no acute distress - *Routine HEENT Exam Head: Present: normocephalic Eye: Present: PERRL ENT: Present: mucous membranes dry - *Routine Respiratory Exam Present: rhonchi, wheezes. Absent: respiratory distress - *Routine Cardiovascular Exam Present: irregular rhythm - *Routine Abdominal Exam Present: soft. Absent: tenderness - *Routine Extremities Exam Absent: edema - *Routine Neurological Exam Present: alert Assessment and Plan (1) Lacunar infarct, acute Current visit: Yes Status: Acute Category: Medical Code(s): I63.9 - Cerebral infarction, unspecified (2) Pneumonia Current visit: Yes Status: Acute Category: Medical Code(s): J18.9 - Pneumonia, unspecified organism (3) UTI (urinary tract infection) Current visit: Yes Status: Acute Qualifiers: Urinary tract infection type: site unspecified Hematuria presence: without hematuria Qualified Code(s): N39.0 - Urinary tract infection, site not specified Category: Medical Code(s): N39.0 - Urinary tract infection, site not specified (4) Renal insufficiency Current visit: Yes Status: Acute Category: Medical Code(s): N28.9 - Disorder of kidney and ureter, unspecified (5) Acute delirium Current visit: Yes Status: Acute Category: Medical Code(s): R41.0 - Disorientation, unspecified (6) A-fib Current visit: Yes Status: Chronic Qualifiers: Atrial fibrillation type: chronic Qualified Code(s): I48.2 - Chronic atrial fibrillation Category: Medical Code(s): I48.91 - Unspecified atrial fibrillation (7) Hypertension Current visit: Yes Status: Chronic Category: Medical Code(s): I10 - Essential (primary) hypertension (8) Diabetes mellitus, type II Current visit: Yes Status: Chronic Category: Medical Code(s): E11.9 - Type 2 diabetes mellitus without complications (9) Hyperlipidemia Current visit: Yes Status: Chronic Category: Medical Code(s): E78.5 - Hyperlipidemia, unspecified (10) History of CVA (cerebrovascular accident) Current visit: Yes Status: Chronic Category: Medical Code(s): Z86.73 - Personal history of transient ischemic attack (TIA), and cerebral infarction without residual deficits (11) Right leg pain Current visit: Yes Status: Acute Category: Medical Code(s): M79.604 - Pain in right leg (12) Anemia Current visit: Yes Status: Acute Category: Medical Code(s): D64.9 - Anemia , unspecified - Assessment and plan all Dx Assessment and Plan for all problems:: Continue with present treatment. Type and hold 2 units.
[2017-09-26 17:29] LABS: Folate 12.5 ng/mL (>3.0)
[2017-09-27 07:09] LABS: Basophils % 0.4 % (0.1-2.0); Eosinophils # 0.1 K/mm3 (0.0-0.4); Eosinophils % 0.8 % (0.1-12.0); Hematocrit 28.5 % (37.0-47.0); Hemoglobin 8.7 g/dL (12.2-16.2); Lymphocytes # 1.3 K/mm3 (0.7-4.5); Lymphocytes % 15.3 K/mm3 (10-50); Mean Corpuscular HGB Conc 30.7 g/dL (31.8-35.4); Mean Corpuscular Hemoglobin 33.4 pg (27.0-31.2); Mean Corpuscular Volume 108.8 fl (81-99); Mean Platelet Volume 9.3 fl (7.4-10.4); Monocytes # 0.4 K/mm3 (0.1-1.0); Monocytes % 4.2 % (1.7-9.3); Neutrophils # 6.8 K/mm3 (1.8-7.8); Neutrophils % 79.5 % (37.0-80.0); Platelet Count 202 K/mm3 (142-424); Red Blood Count 2.62 M/mm3 (4.20-5.40); Red Cell Distribution Width 15.1 % (11.5-17.5); White Blood Count 8.5 K/mm3 (4.8-10.8)
[2017-09-27 07:18] LABS: Anion Gap 14.1 mEq/L (5-15); Potassium 4.1 mmoL/L (3.5-5.1)
--- NOTE | 2017-09-27 08:40 | Progress Note ---
<Rosalee Montiel - Last Filed: 09/27/17 08:37> Internal Medicine - PN: Subj *Date: 09/27/17 *Time: 08:37 Interval history: Patient denies chest pain and shortness of breath. Per nursing notes she had 5 beat run of V. tach. She was asymptomatic at this time. She does eat and amount varies. Exam Vital signs and Labs for Last 24 Hours: Temp Pulse Resp BP Pulse Ox 98.7 F 108 H 18 142/73 97 09/27/17 08:11 09/27/17 08:11 09/27/17 08:11 09/27/17 08:11 09/27/17 08:11 Laboratory Results - last 24 hr 09/25/17 15:45: Vitamin B12 764, Folate 12.5 09/26/17 11:59: POC Glucose 137 H 09/26/17 16:45: POC Glucose 124 H 09/26/17 16:51: Blood Type A Positive, Antibody Screen Negative, Crossmatch (AHG ) See Detail 09/26/17 20:48: POC Glucose 122 H 09/27/17 06:16: POC Glucose 90 09/27/17 06:45: WBC 8.5, RBC 2.62 L, Hgb 8.7 L, Hct 28.5 L, MCV 108.8 H, MCH 33.4 H, MCHC 30.7 L, RDW 15.1, Plt Count 202, MPV 9.3, Neut % (Auto) 79.5, Lymph % (Auto) 15.3, [place] % (Auto) 4.2, Eos % (Auto) 0.8, Baso % (Auto) 0.4, Neut # (Auto) 6.8, Lymph # (Auto) 1.3, [place] # (Auto) 0.4, Eos # (Auto) 0.1, Baso # (Auto) 0.0 09/27/17 06:45: Sodium 141, Potassium 4.1, Chloride 111 H, Carbon Dioxide 20 L, Anion Gap 14.1, BUN 16, Creatinine 1.34 H, Estimated Creat Clear 38, Estimated GFR 38 L, Est GFR ( Amer) 47 L, Glucose 100 I & O for Last 24 hours: Intake & Output 09/24/17 09/25/17 09/26/17 09/27/17 11:59 11:59 11:59 11:59 Intake Total 1700 / 1700 1694 / 1694 1938 / 1938 4331 / 4331 Output Total 2100 / 2100 1050 / 1050 1200 / 1200 1350 / 1350 Balance -400 / -400 644 / 644 738 / 738 2981 / 2981 Weight 139 lb 8 oz 148 lb 2 oz 147 lb 9 oz 150 lb 5 oz Microbiology Reports for the Last 24 Hours: Microbiology 09/15/17 20:55 Urine,Catheterized - Final 09/15/17 20:55 Urine,Catheterized - Final 09/15/17 20:55 Urine,Catheterized - Final Radiology Reports for the Last 24 Hours: Chest x-ray repeat 09/27/2017 IMPRESSION: Overall slight improvement in the right upper and left perihilar pneumonia with no change left lower lobe pneumonia with small effusion Narrative: Pneumonia is improving. Renal function is stable. Hemoglobin at 8.7. - Constitutional no acute distress Comments: Sitting up in the bed. Eyes wide open. Answers questions appropriately. - *Routine Respiratory Exam Comments: Bilateral rhonchi, crackles, and wheezes - *Routine Cardiovascular Exam Present: irregular rhythm (Monitor showing atrial fibrillation and with ventricular rate in the 90s) - *Routine Abdominal Exam Present: soft, normoactive bowel sounds. Absent: tenderness, distended - *Routine Extremities Exam Absent: edema, calf tenderness - *Routine Neurological Exam Present: alert Assessment and Plan (1) Lacunar infarct, acute Current visit: Yes Status: Acute Category: Medical Code(s): I63.9 - Cerebral infarction, unspecified (2) Pneumonia Current visit: Yes Status: Acute Category: Medical Code(s): J18.9 - Pneumonia, unspecified organism (3) UTI (urinary tract infection) Current visit: Yes Status: Acute Qualifiers: Urinary tract infection type: site unspecified Hematuria presence: without hematuria Qualified Code(s): N39.0 - Urinary tract infection, site not specified Category: Medical Code(s): N39.0 - Urinary tract infection, site not specified (4) Renal insufficiency Current visit: Yes Status: Acute Category: Medical Code(s): N28.9 - Disorder of kidney and ureter, unspecified (5) Acute delirium Current visit: Yes Status: Acute Category: Medical Code(s): R41.0 - Disorientation, unspecified (6) A-fib Current visit: Yes Status: Chronic Qualifiers: Atrial fibrillation type: chronic Qualified Code(s): I48.2 - Chronic atrial fibrillation Category: Medical Code(s): I48.91 - Unspecified atrial fibrillation (7) Hypertension Current visit: Yes Status: Chronic Category: Medical Code(s): I10 - Essential (primary) hypertension (8) Diabetes mellitus, type II Current visit: Yes Status: Chronic Category: Medical Code(s): E11.9 - Type 2 diabetes mellitus without complications (9) Hyperlipidemia Current visit: Yes Status: Chronic Category: Medical Code(s): E78.5 - Hyperlipidemia, unspecified (10) History of CVA (cerebrovascular accident) Current visit: Yes Status: Chronic Category: Medical Code(s): Z86.73 - Personal history of transient ischemic attack (TIA), and cerebral infarction without residual deficits (11) Right leg pain Current visit: Yes Status: Acute Category: Medical Code(s): M79.604 - Pain in right leg (12) Anemia Current visit: Yes Status: Acute Category: Medical Code(s): D64.9 - Anemia , unspecified - Assessment and plan all Dx Assessment and Plan for all problems:: Patient to have modified barium swallow as suggested by speech therapy. We will try to get her out of bed and sit in a chair. Otherwise continue current care. Care management working on disposition. <Rolando Elder - Last Filed: 09/27/17 08:51> Internal Medicine - PN: Subj *Date: 09/27/17 *Time: 08:51 Exam Vital signs and Labs for Last 24 Hours: Temp Pulse Resp BP Pulse Ox 98.7 F 108 H 18 142/73 97 09/27/17 08:11 09/27/17 08:11 09/27/17 08:11 09/27/17 08:11 09/27/17 08:11 Laboratory Results - last 24 hr 09/25/17 15:45: Vitamin B12 764, Folate 12.5 09/26/17 11:59: POC Glucose 137 H 09/26/17 16:45: POC Glucose 124 H 09/26/17 16:51: Blood Type A Positive, Antibody Screen Negative, Crossmatch (AHG ) See Detail 09/26/17 20:48: POC Glucose 122 H 09/27/17 06:16: POC Glucose 90 09/27/17 06:45: WBC 8.5, RBC 2.62 L, Hgb 8.7 L, Hct 28.5 L, MCV 108.8 H, MCH 33.4 H, MCHC 30.7 L, RDW 15.1, Plt Count 202, MPV 9.3, Neut % (Auto) 79.5, Lymph % (Auto) 15.3, [place] % (Auto) 4.2, Eos % (Auto) 0.8, Baso % (Auto) 0.4, Neut # (Auto) 6.8, Lymph # (Auto) 1.3, [place] # (Auto) 0.4, Eos # (Auto) 0.1, Baso # (Auto) 0.0 09/27/17 06:45: Sodium 141, Potassium 4.1, Chloride 111 H, Carbon Dioxide 20 L, Anion Gap 14.1, BUN 16, Creatinine 1.34 H, Estimated Creat Clear 38, Estimated GFR 38 L, Est GFR ( Amer) 47 L, Glucose 100 I & O for Last 24 hours: Intake & Output 09/24/17 09/25/17 09/26/17 09/27/17 11:59 11:59 11:59 11:59 Intake Total 1700 / 1700 1694 / 1694 1938 / 1938 4331 / 4331 Output Total 2100 / 2100 1050 / 1050 1200 / 1200 1350 / 1350 Balance -400 / -400 644 / 644 738 / 738 2981 / 2981 Weight 139 lb 8 oz 148 lb 2 oz 147 lb 9 oz 150 lb 5 oz Microbiology Reports for the Last 24 Hours: Microbiology 09/15/17 20:55 Urine,Catheterized - Final 09/15/17 20:55 Urine,Catheterized - Final 09/15/17 20:55 Urine,Catheterized - Final Assessment and Plan (1) Lacunar infarct, acute Current visit: Yes Status: Acute Category: Medical Code(s): I63.9 - Cerebral infarction, unspecified (2) Pneumonia Current visit: Yes Status: Acute Category: Medical Code(s): J18.9 - Pneumonia, unspecified organism (3) UTI (urinary tract infection) Current visit: Yes Status: Acute Qualifiers: Urinary tract infection type: site unspecified Hematuria presence: without hematuria Qualified Code(s): N39.0 - Urinary tract infection, site not specified Category: Medical Code(s): N39.0 - Urinary tract infection, site not specified (4) Renal insufficiency Current visit: Yes Status: Acute Category: Medical Code(s): N28.9 - Disorder of kidney and ureter, unspecified (5) Acute delirium Current visit: Yes Status: Acute Category: Medical Code(s): R41.0 - Disorientation, unspecified (6) A-fib Current visit: Yes Status: Chronic Qualifiers: Atrial fibrillation type: chronic Qualified Code(s): I48.2 - Chronic atrial fibrillation Category: Medical Code(s): I48.91 - Unspecified atrial fibrillation (7) Hypertension Current visit: Yes Status: Chronic Category: Medical Code(s): I10 - Essential (primary) hypertension (8) Diabetes mellitus, type II Current visit: Yes Status: Chronic Category: Medical Code(s): E11.9 - Type 2 diabetes mellitus without complications (9) Hyperlipidemia Current visit: Yes Status: Chronic Category: Medical Code(s): E78.5 - Hyperlipidemia, unspecified (10) History of CVA (cerebrovascular accident) Current visit: Yes Status: Chronic Category: Medical Code(s): Z86.73 - Personal history of transient ischemic attack (TIA), and cerebral infarction without residual deficits (11) Right leg pain Current visit: Yes Status: Acute Category: Medical Code(s): M79.604 - Pain in right leg (12) Anemia Current visit: Yes Status: Acute Category: Medical Code(s): D64.9 - Anemia , unspecified - Assessment and plan all Dx Assessment and Plan for all problems:: Saw patient, agree with above note.
--- NOTE | 2017-09-28 08:35 | Progress Note ---
<Rosalee Montiel - Last Filed: 09/28/17 08:37> Internal Medicine - PN: Subj *Date: 09/28/17 *Time: 08:37 Interval history: Speech notes reviewed. She was up in a chair yesterday. Cannot tell how she is eating. She denies pain and shortness of breath. Exam Vital signs and Labs for Last 24 Hours: Temp Pulse Resp BP Pulse Ox 98.4 F 98 H 18 143/56 96 09/28/17 07:49 09/28/17 07:54 09/28/17 07:49 09/28/17 07:49 09/28/17 07:54 Laboratory Results - last 24 hr 09/27/17 11:35: POC Glucose 103 09/27/17 17:14: POC Glucose 116 H 09/27/17 21:29: POC Glucose 113 H 09/28/17 06:00: POC Glucose 88 I & O for Last 24 hours: Intake & Output 09/25/17 09/26/17 09/27/17 09/28/17 11:59 11:59 11:59 11:59 Intake Total 1694 / 1694 1938 / 1938 4381 / 4381 1105 / 1105 Output Total 1050 / 1050 1200 / 1200 1350 / 1350 1400 / 1400 Balance 644 / 644 738 / 738 3031 / 3031 -295 / -295 Weight 148 lb 2 oz 147 lb 9 oz 150 lb 5 oz 151 lb 4 oz Microbiology Reports for the Last 24 Hours: Microbiology 09/15/17 20:55 Urine,Catheterized - Final 09/15/17 20:55 Urine,Catheterized - Final 09/15/17 20:55 Urine,Catheterized - Final - Constitutional no acute distress Comments: Awakened eventually for assessment. - *Routine Respiratory Exam Present: rhonchi (Bilaterally), wheezes (Bilaterally) - *Routine Cardiovascular Exam Present: irregularly irregular - *Routine Abdominal Exam Present: soft, normoactive bowel sounds. Absent: tenderness - *Routine Extremities Exam Absent: edema - *Routine Neurological Exam Present: alert Assessment and Plan (1) Lacunar infarct, acute Current visit: Yes Status: Acute Category: Medical Code(s): I63.9 - Cerebral infarction, unspecified (2) Pneumonia Current visit: Yes Status: Acute Category: Medical Code(s): J18.9 - Pneumonia, unspecified organism (3) UTI (urinary tract infection) Current visit: Yes Status: Acute Qualifiers: Urinary tract infection type: site unspecified Hematuria presence: without hematuria Qualified Code(s): N39.0 - Urinary tract infection, site not specified Category: Medical Code(s): N39.0 - Urinary tract infection, site not specified (4) Renal insufficiency Current visit: Yes Status: Acute Category: Medical Code(s): N28.9 - Disorder of kidney and ureter, unspecified (5) Acute delirium Current visit: Yes Status: Acute Category: Medical Code(s): R41.0 - Disorientation, unspecified (6) A-fib Current visit: Yes Status: Chronic Qualifiers: Atrial fibrillation type: chronic Qualified Code(s): I48.2 - Chronic atrial fibrillation Category: Medical Code(s): I48.91 - Unspecified atrial fibrillation (7) Hypertension Current visit: Yes Status: Chronic Category: Medical Code(s): I10 - Essential (primary) hypertension (8) Diabetes mellitus, type II Current visit: Yes Status: Chronic Category: Medical Code(s): E11.9 - Type 2 diabetes mellitus without complications (9) Hyperlipidemia Current visit: Yes Status: Chronic Category: Medical Code(s): E78.5 - Hyperlipidemia, unspecified (10) History of CVA (cerebrovascular accident) Current visit: Yes Status: Chronic Category: Medical Code(s): Z86.73 - Personal history of transient ischemic attack (TIA), and cerebral infarction without residual deficits (11) Right leg pain Current visit: Yes Status: Acute Category: Medical Code(s): M79.604 - Pain in right leg (12) Anemia Current visit: Yes Status: Acute Category: Medical Code(s): D64.9 - Anemia , unspecified - Assessment and plan all Dx Assessment and Plan for all problems:: Awaiting decision from family about feeding issues and placement; continue current care. <Rolando Elder - Last Filed: 09/28/17 09:08> Internal Medicine - PN: Subj *Date: 09/28/17 *Time: 09:03 Exam Vital signs and Labs for Last 24 Hours: Temp Pulse Resp BP Pulse Ox 98.4 F 98 H 18 143/56 96 09/28/17 07:49 09/28/17 07:54 09/28/17 07:49 09/28/17 07:49 09/28/17 07:54 Laboratory Results - last 24 hr 09/27/17 11:35: POC Glucose 103 09/27/17 17:14: POC Glucose 116 H 09/27/17 21:29: POC Glucose 113 H 09/28/17 06:00: POC Glucose 88 I & O for Last 24 hours: Intake & Output 09/25/17 09/26/17 09/27/17 09/28/17 11:59 11:59 11:59 11:59 Intake Total 1694 / 1694 1938 / 1938 4381 / 4381 1105 / 1105 Output Total 1050 / 1050 1200 / 1200 1350 / 1350 1400 / 1400 Balance 644 / 644 738 / 738 3031 / 3031 -295 / -295 Weight 148 lb 2 oz 147 lb 9 oz 150 lb 5 oz 151 lb 4 oz Microbiology Reports for the Last 24 Hours: Microbiology 09/15/17 20:55 Urine,Catheterized - Final 09/15/17 20:55 Urine,Catheterized - Final 09/15/17 20:55 Urine,Catheterized - Final Assessment and Plan (1) Lacunar infarct, acute Current visit: Yes Status: Acute Category: Medical Code(s): I63.9 - Cerebral infarction, unspecified (2) Pneumonia Current visit: Yes Status: Acute Category: Medical Code(s): J18.9 - Pneumonia, unspecified organism (3) UTI (urinary tract infection) Current visit: Yes Status: Acute Qualifiers: Urinary tract infection type: site unspecified Hematuria presence: without hematuria Qualified Code(s): N39.0 - Urinary tract infection, site not specified Category: Medical Code(s): N39.0 - Urinary tract infection, site not specified (4) Renal insufficiency Current visit: Yes Status: Acute Category: Medical Code(s): N28.9 - Disorder of kidney and ureter, unspecified (5) Acute delirium Current visit: Yes Status: Acute Category: Medical Code(s): R41.0 - Disorientation, unspecified (6) A-fib Current visit: Yes Status: Chronic Qualifiers: Atrial fibrillation type: chronic Qualified Code(s): I48.2 - Chronic atrial fibrillation Category: Medical Code(s): I48.91 - Unspecified atrial fibrillation (7) Hypertension Current visit: Yes Status: Chronic Category: Medical Code(s): I10 - Essential (primary) hypertension (8) Diabetes mellitus, type II Current visit: Yes Status: Chronic Category: Medical Code(s): E11.9 - Type 2 diabetes mellitus without complications (9) Hyperlipidemia Current visit: Yes Status: Chronic Category: Medical Code(s): E78.5 - Hyperlipidemia, unspecified (10) History of CVA (cerebrovascular accident) Current visit: Yes Status: Chronic Category: Medical Code(s): Z86.73 - Personal history of transient ischemic attack (TIA), and cerebral infarction without residual deficits (11) Right leg pain Current visit: Yes Status: Acute Category: Medical Code(s): M79.604 - Pain in right leg (12) Anemia Current visit: Yes Status: Acute Category: Medical Code(s): D64.9 - Anemia , unspecified (13) Chronic pulmonary aspiration Current visit: Yes Status: Acute Category: Medical Code(s): T17.908A - Unspecified foreign body in respiratory tract, part unspecified causing other injury, initial encounter - Assessment and plan all Dx Assessment and Plan for all problems:: Saw patient, agree with above note. She does not remember having MBS yesterday. She does not seem competent at this point to make her own medical decisions. Will contact daughter to discuss weather or not they think she would want to have a PEG tube or not.
--- NOTE | 2017-09-29 08:12 | Progress Note ---
<Rosalee Montiel - Last Filed: 09/29/17 08:09> Internal Medicine - PN: Subj *Date: 09/29/17 *Time: 08:09 Interval history: Patient states she is doing okay. She has some shortness of breath. She denies pain. She is hungry. Nursing notes reviewed and noted food intake for the last 2 days. Greatly appreciated. Patient observed feeding herself. She had no cough during this process. Exam Vital signs and Labs for Last 24 Hours: Temp Pulse Resp BP Pulse Ox 98.3 F 109 H 18 125/62 90 L 09/29/17 04:00 09/29/17 05:57 09/29/17 04:00 09/29/17 04:00 09/29/17 05:57 Laboratory Results - last 24 hr 09/28/17 12:01: POC Glucose 84 09/28/17 16:46: POC Glucose 97 09/28/17 21:27: POC Glucose 110 09/29/17 06:31: POC Glucose 99 I & O for Last 24 hours: Intake & Output 09/26/17 09/27/17 09/28/17 09/29/17 11:59 11:59 11:59 11:59 Intake Total 1938 / 1938 4381 / 4381 1155 / 1155 1933 / 1933 Output Total 1200 / 1200 1350 / 1350 1400 / 1400 2125 / 2125 Balance 738 / 738 3031 / 3031 -245 / -245 -192 / -192 Weight 147 lb 9 oz 150 lb 5 oz 151 lb 4 oz - Constitutional no acute distress Comments: Patient is very awake this morning. Assisted with sitting up. - *Routine Respiratory Exam Comments: Bilateral coarse rhonchi/crackles - *Routine Cardiovascular Exam Present: RRR - *Routine Abdominal Exam Present: soft, normoactive bowel sounds. Absent: tenderness - *Routine Extremities Exam Absent: edema - *Routine Neurological Exam Present: alert (And appropriate) Assessment and Plan (1) Lacunar infarct, acute Current visit: Yes Status: Acute Category: Medical Code(s): I63.9 - Cerebral infarction, unspecified (2) Pneumonia Current visit: Yes Status: Acute Category: Medical Code(s): J18.9 - Pneumonia, unspecified organism (3) UTI (urinary tract infection) Current visit: Yes Status: Acute Qualifiers: Urinary tract infection type: site unspecified Hematuria presence: without hematuria Qualified Code(s): N39.0 - Urinary tract infection, site not specified Category: Medical Code(s): N39.0 - Urinary tract infection, site not specified (4) Renal insufficiency Current visit: Yes Status: Acute Category: Medical Code(s): N28.9 - Disorder of kidney and ureter, unspecified (5) Acute delirium Current visit: Yes Status: Acute Category: Medical Code(s): R41.0 - Disorientation, unspecified (6) A-fib Current visit: Yes Status: Chronic Qualifiers: Atrial fibrillation type: chronic Qualified Code(s): I48.2 - Chronic atrial fibrillation Category: Medical Code(s): I48.91 - Unspecified atrial fibrillation (7) Hypertension Current visit: Yes Status: Chronic Category: Medical Code(s): I10 - Essential (primary) hypertension (8) Diabetes mellitus, type II Current visit: Yes Status: Chronic Category: Medical Code(s): E11.9 - Type 2 diabetes mellitus without complications (9) Hyperlipidemia Current visit: Yes Status: Chronic Category: Medical Code(s): E78.5 - Hyperlipidemia, unspecified (10) History of CVA (cerebrovascular accident) Current visit: Yes Status: Chronic Category: Medical Code(s): Z86.73 - Personal history of transient ischemic attack (TIA), and cerebral infarction without residual deficits (11) Right leg pain Current visit: Yes Status: Acute Category: Medical Code(s): M79.604 - Pain in right leg (12) Anemia Current visit: Yes Status: Acute Category: Medical Code(s): D64.9 - Anemia , unspecified (13) Chronic pulmonary aspiration Current visit: Yes Status: Acute Category: Medical Code(s): T17.908A - Unspecified foreign body in respiratory tract, part unspecified causing other injury, initial encounter - Assessment and plan all Dx Assessment and Plan for all problems:: Will remove Joshua catheter. Will discontinue IV fluids. Disposition being worked on by care management. <Rolando Elder - Last Filed: 09/29/17 08:15> Internal Medicine - PN: Subj *Date: 09/29/17 *Time: 08:14 Exam Vital signs and Labs for Last 24 Hours: Temp Pulse Resp BP Pulse Ox 98.3 F 109 H 18 125/62 90 L 09/29/17 04:00 09/29/17 05:57 09/29/17 04:00 09/29/17 04:00 09/29/17 05:57 Laboratory Results - last 24 hr 09/28/17 12:01: POC Glucose 84 09/28/17 16:46: POC Glucose 97 09/28/17 21:27: POC Glucose 110 09/29/17 06:31: POC Glucose 99 I & O for Last 24 hours: Intake & Output 09/26/17 09/27/17 09/28/17 09/29/17 11:59 11:59 11:59 11:59 Intake Total 1938 / 1938 4381 / 4381 1155 / 1155 193 / 1933 Output Total 1200 / 1200 1350 / 1350 1400 / 1400 2125 / 2125 Balance 738 / 738 3031 / 3031 -245 / -245 -192 / -192 Weight 147 lb 9 oz 150 lb 5 oz 151 lb 4 oz Assessment and Plan (1) Lacunar infarct, acute Current visit: Yes Status: Acute Category: Medical Code(s): I63.9 - Cerebral infarction, unspecified (2) Pneumonia Current visit: Yes Status: Acute Category: Medical Code(s): J18.9 - Pneumonia, unspecified organism (3) UTI (urinary tract infection) Current visit: Yes Status: Acute Qualifiers: Urinary tract infection type: site unspecified Hematuria presence: without hematuria Qualified Code(s): N39.0 - Urinary tract infection, site not specified Category: Medical Code(s): N39.0 - Urinary tract infection, site not specified (4) Renal insufficiency Current visit: Yes Status: Acute Category: Medical Code(s): N28.9 - Disorder of kidney and ureter, unspecified (5) Acute delirium Current visit: Yes Status: Acute Category: Medical Code(s): R41.0 - Disorientation, unspecified (6) A-fib Current visit: Yes Status: Chronic Qualifiers: Atrial fibrillation type: chronic Qualified Code(s): I48.2 - Chronic atrial fibrillation Category: Medical Code(s): I48.91 - Unspecified atrial fibrillation (7) Hypertension Current visit: Yes Status: Chronic Category: Medical Code(s): I10 - Essential (primary) hypertension (8) Diabetes mellitus, type II Current visit: Yes Status: Chronic Category: Medical Code(s): E11.9 - Type 2 diabetes mellitus without complications (9) Hyperlipidemia Current visit: Yes Status: Chronic Category: Medical Code(s): E78.5 - Hyperlipidemia, unspecified (10) History of CVA (cerebrovascular accident) Current visit: Yes Status: Chronic Category: Medical Code(s): Z86.73 - Personal history of transient ischemic attack (TIA), and cerebral infarction without residual deficits (11) Right leg pain Current visit: Yes Status: Acute Category: Medical Code(s): M79.604 - Pain in right leg (12) Anemia Current visit: Yes Status: Acute Category: Medical Code(s): D64.9 - Anemia , unspecified (13) Chronic pulmonary aspiration Current visit: Yes Status: Suspected Category: Medical Code(s): T17.908A - Unspecified foreign body in respiratory tract, part unspecified causing other injury, initial encounter - Assessment and plan all Dx Assessment and Plan for all problems:: Saw patient, she looks better today, agree with above note.
--- NOTE | 2017-09-29 13:16 | Discharge Summary ---
General - General Admission date:: 09/16/17 Discharge date: 09/29/17 HPI HPI: Ms. Masters is a 77-year-old former patient of Dr. Solorio. According to her family member, she does not have a PCP at this time and she was discharged from his practice due to not showing up for appointments. The patient was eating dinner last night and just began staring off into space. She did not actually pass out but according to her family, had no motor responses. She then began vomiting. 911 was called and transported her to the emergency room where she was found to have a urinary tract infection. According to her family she has these quite frequently. At the time of this exam the patient is sleeping and did not answer any questions. Hospital Course Hospital Course: On admission patient was started on IVF. She developed a fever > 103 and was started on Levaquin. CXR revealed a pneumonia. Duonebs were added after which she did show improvement. 09/19 she was noted to have had a CVA with right sided weakness. PT,OT, and speech therapy were consulted. She continued with wheezing and was agitated. Meds added for her pain and agitation. Cardizem was added for a rapid HR>150 which did help this issue. After the CVA she was intermittently lethargic and then alert. She was dysarthric. Her diet was modified.\ by speech therapy. Patient verified on many occasions that she did not want a feeding tube. She was noted to be anemic but H&H did stabilize. Kidney function did improve. She ate sporadically and eventually was able to feed herself with her left hand. She was unable to bare weight on the right leg. Clindamycin was added to ABX regime. She began to talk more and did sit up in a chair. Care management worked on post hospital care plans with the patient and family. On 09/29/17 a bed was available at [facility]. On this date she was stable to be transferred to this facility for ongoing rehab. IV and pascual were discontinued. See discharge for meds and ongoing care. She will need to be on aspiration precautions as listed by Speech Therapy. She will be followed by the Physician in this facility. Objective Vital signs: Temp Pulse Resp BP Pulse Ox 97.9 F 103 H 20 136/59 94 L 09/29/17 11:59 09/29/17 11:59 09/29/17 11:59 09/29/17 11:59 09/29/17 11:59 Narrative: - Constitutional Comments: sleeping, lethargic <Kitty Mccray 09/16/17 09:17> - *Routine HEENT Exam Head: Present: normocephalic, atraumatic [facility]/16[facility] 09:17> Eye: Present: EOMI, PERRL [facility]/16/17 09:17> ENT: Present: mucous membranes dry <Kitty Mccray 09/16/17 09:17> - *Routine Neck Exam Present: supple, full ROM [facility]/17 09:17> - *Routine Respiratory Exam Present: wheezes [facility] 09/16/17 09:17> - *Routine Cardiovascular Exam Present: irregularly irregular [facility]16/17 09:17> - *Routine Abdominal Exam Present: soft, normoactive bowel sounds. Absent: tenderness [facility] 09/16/17 09:17> - *Routine Extremities Exam Absent: edema [facility]/16/17 09:17> - *Routine Skin Exam Present: intact [facility]/16[facility]17 09:17> - *Routine Neurological Exam Present: altered mental status <Cornel Mccraya 09/16/17 09:17> Results Completed studies during hospitalization [Text1]: 09/15/17 CT of the head IMPRESSION: No acute intracranial findings Atrophy with chronic ischemic gliotic change 09/15/17 CXR IMPRESSION: Overall no change cardiomegaly with chronic interstitial changes 09/17/17 CXR IMPRESSION------- 1 new likely focal ovoid/round pneumonia left midlung. This Focal ovoid density has developed since CXR from 2 days prior 2. Suspect minimal new infiltrate also now present at the medial left base retrocardiac region 3. Significant motion artifact on this chest film limits this study particularly at the right chest. 4. There appears to be a lucent skinfold line projected vertically over the right upper chest lung. Markings appear to extend beyond this. However there should be progressive right chest pain & progressive shortness of breath then consider a repeat CXR.. Again I favor this is likely a skinfold line No focal pneumonia right chest 5. Cardiomegaly. 09/08/[address] IMPRESSION: ------- 1.Subtle interval change since 09/15/2017 CT head.: Subtle low-density area developing at posterior limb Left Internal Capsule. Suggesting developing small vessel ischemic focus/& likely developing small vessel lacunar infarct here. .. 2. . Fairly extensive long-standing, chronic small vessel deep white matter ischemic changes throughout through hemispheres otherwise noted.. 3. Cerebral atrophy. 4. No hemorrhage 09/23/17 repeat CXR IMPRESSION: Bilateral pneumonia with new areas of consolidation in the right upper lobe and worsening consolidation in the left lower lobe 09/27/17 repeat CXR IMPRESSION: Overall slight improvement in the right upper and left perihilar pneumonia with no change left lower lobe pneumonia with small effusion 09/27/17 Modified Barium swallow IMPRESSION: Recurrent penetration observed with all consistencies.-Most pronounced with larger volumes & the thinner barium consistency .. Please see review recommendations from speech pathology Labs on day of discharge: Labs from last 24 hours 09/29/17 09/29/17 09/28/17 12:05 06:31 21:27 POC Glucose 107 99 110 09/28/17 16:46 POC Glucose 97 Laboratory Tests 09/15/17 09/27/17 09/27/17 20:55 06:45 06:45 WBC 8.5 RBC 2.62 L Hgb 8.7 L Hct 28.5 L MCV 108.8 H MCH 33.4 H MCHC 30.7 L RDW 15.1 Plt Count 202 MPV 9.3 Neut % (Auto) 79.5 Lymph % (Auto) 15.3 [place] % (Auto) 4.2 Eos % (Auto) 0.8 Baso % (Auto) 0.4 Neut # (Auto) 6.8 Lymph # (Auto) 1.3 [place] # (Auto) 0.4 Eos # (Auto) 0.1 Baso # (Auto) 0.0 Sodium 141 Potassium 4.1 Chloride 111 H Carbon Dioxide 20 L Anion Gap 14.1 BUN 16 Creatinine 1.34 H Estimated Creat Clear 38 Estimated GFR 38 L Est GFR ( Amer) 47 L Glucose 100 Urine Color Yellow Urine Appearance Clear Urine pH 6.0 Ur Specific [place] 1.025 Urine Protein 2+ Urine Glucose (UA) Negative Urine Ketones Trace Urine Blood 3+ Urine Nitrate Negative Urine Bilirubin Negative Urine Urobilinogen 0.2 Ur Leukocyte Esterase 2+ A Urine RBC 10-20 Urine WBC 20-50 A Ur Squamous Epith Cells 3-5 Urine Bacteria 1+ - Additional Comments Speech therapy with the following plan: Pureed Honey Liquids Treatment/Strategies Strategy/Precaution Recommend Sitting Upright (90 deg) Small Bites and Sips Referrals/Other Recommended Referrals Alternate Feeding Method Other Recommendations Based on PO intakes Mod Barium Swallow Impressions DS: Diagnosis - Discharge Diagnosis (1) Lacunar infarct, acute Status: Acute (2) Pneumonia Status: Acute (3) UTI (urinary tract infection) Status: Acute (4) Renal insufficiency Status: Acute (5) Acute delirium Status: Acute (6) A-fib Status: Chronic (7) Hypertension Status: Chronic (8) Diabetes mellitus, type II Status: Chronic (9) Hyperlipidemia Status: Chronic (10) History of CVA (cerebrovascular accident) Status: Chronic (11) Right leg pain Status: Acute (12) Anemia Status: Acute (13) Chronic pulmonary aspiration Status: Suspected Discharge Plan - Patient Discharge Instructions ACTIVITY: Continue current activity DIET: continue same diet Additional Instructions: Patient will need PT, OT and speech therapy. She needs aspiration precautions and check of CBC and BMP in 1 week. Patient Instructions: Urinary Tract Infection, Pneumonia-Adult, DI for Stroke- Ischemic, DI for Oropharyngeal Dysphagia - Follow up Plan Home Medications: Home Medications Medication Instructions Recorded Confirmed Type Apixaban [Eliquis] 2.5 mg PO BID 09/15/17 09/16/17 History Atenolol [Atenolol 50mg Tab] 50 mg PO DAILY 09/15/17 09/16/17 History Buspirone HCl [Buspar 10mg tablet] 10 mg PO TID 09/15/17 09/16/17 History Cilostazol [Pletal 100mg tablet] 100 mg PO BID 09/15/17 09/16/17 History Omeprazole [Omeprazole 40mg 40 mg PO DAILY 09/15/17 09/16/17 History Capsule] Spironolactone [Spironolactone 25 mg PO DAILY 09/15/17 09/16/17 History 25mg Tab] Tamoxifen Citrate 20 mg PO DAILY 09/15/17 09/22/17 History Ursodiol [Actigall] 300 mg PO BID 09/15/17 09/16/17 History Prescriptions/Medication Reconciliation: New Clindamycin HCl [Clindamycin 300mg Cap] 300 mg PO TID #21 capsule Ferrous Sulfate [Ferrous Sulfate 325mg Tablet] 325 mg PO DAILY #30 tablet levoFLOXacin [Levaquin 500mg tab] 500 mg PO DAILY #7 tab Hydrocod/Acet 5/325 mg [[place] 5/325mg tablet] 1 tab PO Q6HP PRN #90 tablet PRN Reason: Moderate To Severe Pain Acetaminophen [Tylenol] 325 mg PO Q4HP PRN 30 Days tablet PRN Reason: Mild Pain dilTIAZem HCl [Cardizem ER 240mg Capsule] 240 mg PO DAILY 30 Days cap.er.24h Continue Spironolactone [Spironolactone 25mg Tab] 25 mg PO DAILY Ursodiol [Actigall] 300 mg PO BID Omeprazole [Omeprazole 40mg Capsule] 40 mg PO DAILY Cilostazol [Pletal 100mg tablet] 100 mg PO BID Buspirone HCl [Buspar 10mg tablet] 10 mg PO TID Atenolol [Atenolol 50mg Tab] 50 mg PO DAILY Apixaban [Eliquis] 2.5 mg PO BID Tamoxifen Citrate 20 mg PO DAILY Discontinued dilTIAZem HCl [Cardizem 60mg tab] 60 mg PO TID
== END 2017-09-29 14:51 ==
LOC: ER 20:41 → 2ND 20:41
PROVIDERS: ADMIT Family Medicine; ATTEND Family Medicine

== ENCOUNTER → 2017-10-07 13:06 | Outpatient (CLI) | payer SELFPAY ==
--- NOTE | 2017-10-07 13:14 | FL_ITS ---
FL barium swallow modified: 10/07/2017 1:14 PM CLINICAL HISTORY: Dysphasia ORDERING PHYSICIAN: Wiliam Hughes MD PATIENT AGE: 77 years Comparison: None TECHNIQUE: Patient administered varying consistencies of barium contrast, while viewed in lateral position under real-time fluoroscopy with cine recording. FLUOROSCOPY TIME: 3 minutes and 15 seconds The study was performed in conjunction with speech pathologist. Please see that report & recommendations. FINDINGS: Patient was given varying consistencies of barium. Please see speech pathologist report for specifics. There is delayed swallow reflex resulting in penetration in the laryngeal vestibule with thin, nectar, and large volume of tiny thick liquids. There was a mild amount of residue in the vallecula which cleared with dry swallowing. No tracheal aspiration. IMPRESSION: Mild vestibular penetration. No tracheal aspiration Please see speech pathologist report and recommendations.
--- NOTE | 2017-10-07 14:11 | XR_ITS ---
XR chest AP HISTORY: ITS.REASON: cough ORDERING PHYSICIAN: Wiliam Hughes MD PATIENT AGE: 77 years COMPARISON: 09/27/2017 FINDINGS: Cardiomegaly without failure. There is chronic coarsening of the bronchovascular markings. Previously noted right upper lobe, left perihilar, and left lower lobe pneumonia has improved. There remains some residual density in the left perihilar region measuring 19 mm and could be related to residual pneumonia and/or atelectatic change. Follow-up recommended as developing nodule could have a similar appearance. There are surgical clips in the left axilla and overlying the left breast. IMPRESSION: Overall improvement in the cardiopulmonary status with some residual density in the left midlung which could be related to some mild residual or recurrent infiltrate. Suggest follow until clear.
--- NOTE | 2017-10-07 14:32 | HMH.SLMBS2 ---
Speech & Language Evaluation Speech/Language Mod Barium Swallow Start: 10/07/17 14:04 Freq: once Status: Complete Protocol: Document 10/07/17 14:04 SHAQ (Rec: 10/07/17 14:32 SHAQ [id number]) [facility] [place] Diet Dietary Recommendations Dysphagia Mechanical Soft Honey Liquids Treatment/Strategies Treatment Recommendation Oral Motor Exercises Resistive Sucking Exer. Strategy/Precaution Recommend Sitting Upright (90 deg) Chin Tuck Liquids from Spoon Small Bites and Sips Alternate Liquids/Solids Mod Barium Swallow Impressions Summary and Impressions Oral Phase Impression No Impairment (WFL) Oral Phase Summary Ms. Masters was given the following consistencies in this order: honey thick liquids via spoon then open cup, nectar thick liquids via spoon then open cup, thin liquids via straw, pudding, pureed thins, pureed thick, and mechanical soft. No oral phase impairments noted. Improvements noted with bolus formation of mechanical soft consistency than on previous evaluation on 09/27/2017. Pharyngeal Phase Impression Mild Impairment Pharyngeal Phase Summary Decreased tongue base retraction and a delayed swallow reflex which resulted in penetration into laryngeal vestibule with thins, nectar, and large volume of honey thick liquids. Residue in valleculae noted with pudding thick liquids, cleared with dry swallow. Speech/Language MBS Assessment/Goals/Plan Assessment Date of Evaluation: 10/07/17 Evaluation Type Initial Certification Assessment/Problems Dysphagia Does Patient Qualify for Service No Qualify/Failure Comment Patient will be seen at SNF for therapy. TR[employer]IVER [employer] will determine goals and objectives and qualifications for speech . Plan Pt/Guardian verbally ack understanding Yes of dx/prognosis/goals G -code Required Yes G-CODES ST Current Status
== END ==
PROVIDERS: Family Provider Internal Medicine Adolescent Medicine; PCP Emergency Medicine; Visit Provider Emergency Medicine
DX: R13.10 Dysphagia, unspecified (principal)
CPT/HCPCS: 70371; 71045; 92611

== ENCOUNTER 2017-12-19 19:21 | Inpatient (IN) ==
[2017-12-19 20:03] LABS: Basophils % 0.3 % (0.1-2.0); Eosinophils # 0.1 K/mm3 (0.0-0.4); Eosinophils % 1.5 % (0.1-12.0); Hematocrit 36.2 % (37.0-47.0); Hemoglobin 11.6 g/dL (12.2-16.2); Lymphocytes # 2.1 K/mm3 (0.7-4.5); Lymphocytes % 24.9 K/mm3 (10-50); Mean Corpuscular HGB Conc 32.1 g/dL (31.8-35.4); Mean Corpuscular Hemoglobin 34.6 pg (27.0-31.2); Mean Corpuscular Volume 107.9 fl (81-99); Mean Platelet Volume 8.5 fl (7.4-10.4); Monocytes # 0.4 K/mm3 (0.1-1.0); Monocytes % 4.1 % (1.7-9.3); Neutrophils # 5.9 K/mm3 (1.8-7.8); Neutrophils % 69.2 % (37.0-80.0); Platelet Count 198 K/mm3 (142-424); Red Blood Count 3.36 M/mm3 (4.20-5.40); Red Cell Distribution Width 14.6 % (11.5-17.5); White Blood Count 8.5 K/mm3 (4.8-10.8)
[2017-12-19 20:04] LABS: Microscopic, Urine URINE MICROSCOPIC (MICROSCOPIC)
[2017-12-19 20:05] LABS: Appearance,Urine SL CLOUDY (Clear); Bilirubin,Urine Negative (Negative); Blood, Urine TRACE-I (Negative); Color,Urine YELLOW (Yellow); Glucose,Urine (UA) Negative (Negative); Ketones,Urine Negative (Negative); Leukocyte Esterase,Urine 2+ (Negative); Protein,Urine 1+ (Negative); Specific Gravity, Urine 1.025 (1.005-1.030); Urobilinogen,Urine 0.2 EU/dl (0.2)
--- NOTE | 2017-12-19 20:06 | Emergency Department Note ---
ED Disposition Clinical Impression: Urinary tract infection Qualifiers: Urinary tract infection type: site unspecified Hematuria presence: without hematuria Qualified Code(s): N39.0 - Urinary tract infection, site not specified Disposition: Still a Patient Condition on Discharge: Fair Referrals: Wiliam Hughes MD [Primary Care Provider] - - Critical Care Critical Care Time: No Attestation: On 12/19/17, the high probability of a clinically significant, sudden or life threatening deterioration of the following system(s) required my full and direct attention, intervention and personal management. The time I documented below is in addition to time spent performing reported procedures but includes the following listed in this critical care notation. Medical Decision Making - Joss Inquiry Pt receiving controlled substance: No Vital Signs: 12/19/17 19:25 12/19/17 20:02 Temperature 99.2 F 99.2 F Temperature Source Oral Rectal Pulse Rate [Right Radial] 65 Respiratory Rate 15 Blood Pressure [Right Arm] 143/63 Blood Pressure Mean [Right Arm] 89 Blood Pressure Source [Right Arm] Automatic Cuff Blood Pressure Position [Right Arm] Sitting 02 Sat by Pulse Oximetry 100 Oxygen Delivery Method Room Air - Lab Data Lab Results 12/19/17 19:45: WBC 8.5, RBC 3.36 L, Hgb 11.6 L, Hct 36.2 L, MCV 107.9 H, MCH 34.6 H, MCHC 32.1, RDW 14.6, Plt Count 198, MPV 8.5, Neut % (Auto) 69.2, Lymph % (Auto) 24.9, [place] % (Auto) 4.1, Eos % (Auto) 1.5, Baso % (Auto) 0.3, Neut # ( Auto) 5.9, Lymph # (Auto) 2.1, [place] # (Auto) 0.4, Eos # (Auto) 0.1, Baso # (Auto ) 0.0 12/19/17 19:45: Sodium 140, Potassium 4.0, Chloride 106, Carbon Dioxide 24, Anion Gap 14.0, BUN 33 H D, Creatinine 1.66 H, Estimated Creat Clear 25, Estimated GFR 30 L, Est GFR ( Amer) 36 L, Glucose 114 H, Calcium 9.2, Total Bilirubin 0.3, AST 14 L D, ALT 26, Alkaline Phosphatase 102, Total Protein 8.0, Albumin 3.3 L, Globulin 4.7 H, Albumin/Globulin Ratio 0.7 L 12/19/17 19:45: Lactate 0.7 12/19/17 19:45: PT 10.3, INR 1.00, APTT 29.9 12/19/17 19:45: Troponin I < 0.02 12/19/17 19:55: Urine Color Yellow, Urine Appearance Sl cloudy, Urine pH 6.0, Ur Specific [place] 1.025, Urine Protein 1+, Urine Glucose (UA) Negative, Urine Ketones Negative, Urine Blood Trace-i, Urine Nitrate Negative, Urine Bilirubin Negative, Urine Urobilinogen 0.2, Ur Leukocyte Esterase 2+ A, Urine RBC 3-5, Urine WBC 10-20, Ur Squamous Epith Cells None, Tyrosine Crystals 3+, Urine Bacteria 2+ Result diagrams: 12/19/17 19:45 12/19/17 19:45 Orders (Tests/Meds): ED MEDICATIONS Generic Name Dose Route Start Last Admin Trade Name Freq PRN Reason Stop Dose Admin Piperacillin Sod/Tazobactam 50 mls @ 100 mls/hr 12/19/17 21:15 Sod 3.375 gm/ Sodium Chloride IV 01/02/18 21:14 Q8H DASIA Protocol Discontinued Medications Generic Name Dose Route Start Last Admin Trade Name Freq PRN Reason Stop Dose Admin Sodium Chloride 1,000 mls @ 999 mls/hr 12/19/17 19:45 12/19/17 20:38 Sod Chlor 0.9% 1000ml Bag IV 12/19/17 20:45 75 mls/hr .Q1H1M DASIA Administration Ondansetron HCl 4 mg 12/19/17 19:34 12/19/17 19:34 Zofran 4mg/2ml Vial IV 12/19/17 19:35 4 mg ONCE ONE Administration ORDERS Category Date Time Status CT head/brain wo con Stat Cat Scan 12/19/17 19:34 Taken XR chest portable Stat Exams 12/19/17 19:39 Taken Blood Culture Stat Micro 12/19/17 19:45 Received Urine Culture Stat Micro 12/19/17 19:55 Received - Radiology Data #1 Image(s): Chest Image Reviewed: Yes I reviewed the patient's radiology image no acute disease, no change from prior - CT Data CT Scan: Head Time Received: 20:[address] Reviewed: Yes: I have viewed the radiologist's interpretation Findings Narrative: No acute intracranial hemorrhage. No intra-axial mass or regional mass-effect. Moderate diffuse cerebral atrophy. Diminished attenuation involving the white matter of the centrum semi-ovale and lord radiata characteristic chronic small vessel ischemic demyelinization. Focally diminished attenuation characteristic of encephalomalacia involves the posterior limb of the left internal capsule. - ECG Data Tracing #1 EKG interpreted by Akash Sandoval MD: Rhythm: sinus Rate: 65 [place]: normal Ectopy: none Conduction: normal ST Segment Changes: none T Wave Changes: Inversion lateral Q Waves: none Prior electrocardiagrams reviewed. No change from prior tracings. Computer interpretation of ST elevation, acute IA, is incorrect in my opinion. - Physician Consults Physician Consulted: Saul Time: 21:00 Reason -: Admission Comment/Response: clinical information, including history, exam, laboratory and radiology results and ED course. Requests admission to the hospital. Per hospital procedure, I will write temporary bridge inpatient orders on the patient. Specific orders requested by the admitting physician: Discussed allergies, requests Zosyn, serial cardiac enzymes. General Adult HPI - General Chief complaint: Altered Mental Status Stated complaint: ams Time Seen by Provider: 12/19/17 20:00 Mode of Arrival: EMS Limitations: Physical Limitations Description of Symptoms (Recalled from ER Triage Doc. by RN): [facility] reports pt has increased confusion, lethargy, vomiting and AMS for several days. - History of Present Illness HPI narrative: Patient seen by me in this emergency department 2 days ago, report from [facility] was that she had elevated blood pressure. Daughter also related that she had a 2 day history of vomiting and fever. She was discovered to have a possible pneumonia right upper lobe on CT scan, discharged on Levaquin after consultation with Dr. Hughes. Daughter now states that the patient still has the same symptoms, vomiting, fever, and elevated blood pressure, states that she was made aware of this by a call from the [facility]. Patient currently denies any complaint. States that she has no pain, feels fine. senior living transfer papers indicate "declining health status", altered mental status, vomiting. - Related Data Home Medications Medication Instructions Recorded Confirmed Apixaban [Eliquis] 2.5 mg PO BID 09/15/17 12/19/17 Atenolol [Atenolol 50mg Tab] 50 mg PO DAILY 09/15/17 12/19/17 Buspirone HCl [Buspar 10mg tablet] 10 mg PO TID 09/15/17 12/19/17 Spironolactone [Spironolactone 25 mg PO DAILY 09/15/17 12/19/17 25mg Tab] acetaminophen 500 mg capsule 1,000 mg PO Q6H PRN 10/05/17 12/19/17 cilostazol 100 mg tablet 100 mg PO BID 10/05/17 12/19/17 lactulose 10 gram/15 mL oral 30 g PO DAILY ml 10/05/17 12/19/17 solution omeprazole 40 mg capsule,delayed 40 mg PO ONCE 10/05/17 12/19/17 release Baclofen [Lioresal 10mg tablet] 10 mg PO BID 12/17/17 12/19/17 Ferrous Sulfate [Ferrous Sulfate 325 mg PO DAILY 12/17/17 12/19/17 325mg Tablet] dilTIAZem HCl [Cardizem ER 240mg 240 mg PO DAILY 12/17/17 12/19/17 Capsule] levoFLOXacin [Levaquin 750mg 750 mg PO DAILY 12/19/17 12/19/17 tablet] Allergies Allergy/AdvReac Type Severity Reaction Status Date / Time cephalexin [CEPHALEXIN] Allergy Mild Verified 12/19/17 19:32 metformin [METFORMIN] Allergy Mild Verified 12/19/17 19:32 Sulfa (Sulfonamide Allergy Mild Verified 12/19/17 19:32 Antibiotics) [SULFA (SULFONAMIDE ANTIBIOTICS)] [facility] History I have reviewed the patient's past medical history: Yes Medical History: Reports:: Atrial Fibrillation, Cancer, Coronary Artery Disease , Cerebrovascular Accident, Diabetes Mellitus Type 2, Hyperlipidemia, Hypertension Denies:: Diabetes Mellitus Type 1, MRSA Other Medical History: Reports: Arthritis, Cataracts Other Surgeries: Yes: Cardiac Catheterization, Cholecystectomy, Hysterectomy- Total Amputation: No Fractures: Yes Comment: lumpectomy left breast, hip fx, adhesions removed - Social History Smoking Status: Current every day smoker Tobacco Type: cigarettes # Packs/Day (cigarettes): 1 #Yrs smoked (if former smoker): 60 Alcohol Intake: never Occupational Status: retired Housing: house Household Members: family - Psychiatric History Expresses thoughts of harming self/others: None Suicide Plan Description: No Plan Family Hx:: Cancer, Diabetes, Stroke ROS Obtained: Yes All systems reviewed & no additional complaints - Constitutional Constitutional: Reports fever(s) - Cardiovascular Cardiovascular: Denies chest pain - Respiratory Respiratory: No cough, No dyspnea - Gastrointestinal Gastrointestingal: Reports: vomiting. Denies: abdominal pain, diarrhea Physical Exam - General General appearance: alert, in no apparent distress - Head Head exam: atraumatic, normocephalic, normal inspection - Eye Eye exam: Present: normal appearance, PERRL, EOMI - ENT ENT exam: Present: normal exam, normal oropharynx, mucous membranes moist, TM's normal bilaterally, normal external ear exam - Neck Neck exam: Present: normal inspection, full ROM, trachea midline. Absent: meningismus, lymphadenopathy - Chest Chest inspection: Present: normal inspection, symmetric chest wall rise. Absent : tenderness - Respiratory Respiratory exam: Present: normal lung sounds bilaterally. Absent: respiratory distress - Cardiovascular Cardiovascular exam: Present: regular rate, normal rhythm. Absent: JVD - Abdominal Exam Abdominal exam: Present: soft, normal bowel sounds. Absent: distention, tenderness, guarding - Extremities Exam Extremities exam: Present: normal inspection, full ROM, normal capillary refill. Absent: calf tenderness - Back Exam Back exam: Present: normal inspection. Absent: tenderness - Neurological Exam Neurological exam: Present: alert, CN II-XII intact, other (Oriented to person and place). Absent: motor sensory deficit - Psychiatric Psychiatric exam: Present: normal affect, normal mood - Skin Skin exam: Present: warm, dry, intact, normal color - Lymphatic Lymphatic Findings: no adenopathy
[2017-12-19 20:08] LABS: Activated Partial Thrombo Time 29.9 seconds (23.6-34.0); Prothrombin Time 10.3 seconds (9.4-11.8)
[2017-12-19 20:39] LABS: Bacteria,Urine 2+ /lpf; Tyrosine Crystal,Urine 3+ /lpf
[2017-12-19 20:43] LABS: Albumin Level 3.3 gm/dL (3.4-5.0); Albumin/Globulin Ratio 0.7 (1.1-1.8); Bilirubin,Total 0.3 mg/dL (0.2-1.0); Calcium 9.2 mg/dL (8.5-10.1); Globulin 4.7 gm/dl (1.3-3.2)
--- NOTE | 2017-12-19 21:37 | History & Physical Report ---
*Admission Date: 12/19/17 *Chief complaint: AMS *History of present illness: Patient was seen on 12/17/17 with UTI and possible pneumonia. Sent from intermediate today with AMS. [facility] History I have reviewed the patient's past medical history: Yes Medical History: Reports:: Atrial Fibrillation, Cancer, Coronary Artery Disease , Cerebrovascular Accident, Diabetes Mellitus Type 2, Hyperlipidemia, Hypertension Denies:: Diabetes Mellitus Type 1, MRSA Other Medical History: Reports: Arthritis, Cataracts Other Surgeries: Yes: Cardiac Catheterization, Cholecystectomy, Hysterectomy- Total Amputation: No Fractures: Yes - *Social History Smoking Status: Current every day smoker Tobacco Type: cigarettes # Packs/Day (cigarettes): 1 #Yrs smoked (if former smoker): 60 Alcohol Intake: never Occupational Status: retired Housing: house Household Members: family - Psychiatric History Expresses thoughts of harming self/others: None Suicide Plan Description: No Plan *Family Hx:: Cancer, Diabetes, Stroke Review of Systems - Review of Systems obtained from intermediate and daughter - Constitutional Reports fever(s) - *Gastrointestinal Reports vomiting - *Neurologic Reports other (AMS) Meds Home Medications Medication Instructions Recorded Confirmed Type Apixaban [Eliquis] 2.5 mg PO BID 09/15/17 12/19/17 History Atenolol [Atenolol 50mg Tab] 50 mg PO DAILY 09/15/17 12/19/17 History Buspirone HCl [Buspar 10mg tablet] 10 mg PO TID 09/15/17 12/19/17 History Spironolactone [Spironolactone 25 mg PO DAILY 09/15/17 12/19/17 History 25mg Tab] acetaminophen 500 mg capsule 1,000 mg PO Q6H PRN 10/05/17 12/19/17 History cilostazol 100 mg tablet 100 mg PO BID 10/05/17 12/19/17 History lactulose 10 gram/15 mL oral 30 g PO DAILY ml 10/05/17 12/19/17 History solution omeprazole 40 mg capsule,delayed 40 mg PO ONCE 10/05/17 12/19/17 History release Baclofen [Lioresal 10mg tablet] 10 mg PO BID 12/17/17 12/19/17 History Ferrous Sulfate [Ferrous Sulfate 325 mg PO DAILY 12/17/17 12/19/17 History 325mg Tablet] dilTIAZem HCl [Cardizem ER 240mg 240 mg PO DAILY 12/17/17 12/19/17 History Capsule] levoFLOXacin [Levaquin 750mg 750 mg PO DAILY 12/19/17 12/19/17 History tablet] Allergies Allergy/AdvReac Type Severity Reaction Status Date / Time cephalexin [CEPHALEXIN] Allergy Mild Verified 12/19/17 19:32 metformin [METFORMIN] Allergy Mild Verified 12/19/17 19:32 Sulfa (Sulfonamide Allergy Mild Verified 12/19/17 19:32 Antibiotics) [SULFA (SULFONAMIDE ANTIBIOTICS)] Exam Vital signs and Labs for Last 24 Hours: Temp Pulse Resp BP Pulse Ox 98.7 F 65 15 150/61 100 12/19/17 21:24 12/19/17 21:24 12/19/17 21:24 12/19/17 21:24 12/19/17 19:25 Laboratory Results - last 24 hr 12/19/17 19:45: WBC 8.5, RBC 3.36 L, Hgb 11.6 L, Hct 36.2 L, MCV 107.9 H, MCH 34.6 H, MCHC 32.1, RDW 14.6, Plt Count 198, MPV 8.5, Neut % (Auto) 69.2, Lymph % (Auto) 24.9, [place] % (Auto) 4.1, Eos % (Auto) 1.5, Baso % (Auto) 0.3, Neut # ( Auto) 5.9, Lymph # (Auto) 2.1, [place] # (Auto) 0.4, Eos # (Auto) 0.1, Baso # (Auto ) 0.0 12/19/17 19:45: Sodium 140, Potassium 4.0, Chloride 106, Carbon Dioxide 24, Anion Gap 14.0, BUN 33 H D, Creatinine 1.66 H, Estimated Creat Clear 25, Estimated GFR 30 L, Est GFR ( Amer) 36 L, Glucose 114 H, Calcium 9.2, Total Bilirubin 0.3, AST 14 L D, ALT 26, Alkaline Phosphatase 102, Total Protein 8.0, Albumin 3.3 L, Globulin 4.7 H, Albumin/Globulin Ratio 0.7 L 12/19/17 19:45: Lactate 0.7 12/19/17 19:45: PT 10.3, INR 1.00, APTT 29.9 12/19/17 19:45: Troponin I < 0.02 12/19/17 19:55: Urine Color Yellow, Urine Appearance Sl cloudy, Urine pH 6.0, Ur Specific [place] 1.025, Urine Protein 1+, Urine Glucose (UA) Negative, Urine Ketones Negative, Urine Blood Trace-i, Urine Nitrate Negative, Urine Bilirubin Negative, Urine Urobilinogen 0.2, Ur Leukocyte Esterase 2+ A, Urine RBC 3-5, Urine WBC 10-20, Ur Squamous Epith Cells None, Tyrosine Crystals 3+, Urine Bacteria 2+ I & O for Last 24 hours: Intake & Output 12/17/17 12/18/17 12/19/17 12/20/17 11:59 11:59 11:59 11:59 Weight 120 lb - Constitutional no acute distress - *Routine HEENT Exam Head: Present: normocephalic, atraumatic Eye: Present: PERRL ENT: Present: mucous membranes moist - *Routine Neck Exam Present: supple. Absent: JVD, lymphadenopathy - Routine Chest/Breast/Axilla Exam Chest wall: Absent: tenderness - *Routine Respiratory Exam Absent: accessory muscle use, respiratory distress - *Routine Cardiovascular Exam Present: RRR. Absent: murmur - *Routine Abdominal Exam Present: soft - *Routine Extremities Exam Absent: cyanosis - *Routine Skin Exam Present: intact. Absent: cyanosis - *Routine Neurological Exam Present: alert, oriented X3 - Routine Psychiatric Exam Present: normal affect. Absent: agitated Assessment and Plan (1) UTI (urinary tract infection) Start date: 12/17/17 Current visit: Yes Status: Acute Qualifiers: Urinary tract infection type: site unspecified Hematuria presence: without hematuria Qualified Code(s): N39.0 - Urinary tract infection, site not specified Category: Medical Code(s): N39.0 - Urinary tract infection, site not specified (2) Pneumonia Current visit: No Status: Acute Qualifiers: Pneumonia type: due to unspecified organism Laterality: right Lung location: upper lobe of lung Qualified Code(s): J18.1 - Lobar pneumonia, unspecified organism Category: Medical Code(s): J18.9 - Pneumonia, unspecified organism
[2017-12-20 04:45] LABS: Anion Gap 12.9 mEq/L (5-15); Calcium 8.5 mg/dL (8.5-10.1); Potassium 3.9 mmoL/L (3.5-5.1)
--- NOTE | 2017-12-20 07:12 | Pharmacy Consult Notes ---
[facility] Pharmacy VTE Monitoring - Patient Demographics Admission date: 12/19/17 Report Date: 12/20/17 Time: 07:12 Allergies/Adverse Reactions: Patient Allergies cephalexin [CEPHALEXIN] Allergy (Mild, Verified 12/19/17 19:32) metformin [METFORMIN] Allergy (Mild, Verified 12/19/17 19:32) Sulfa (Sulfonamide Antibiotics) [SULFA (SULFONAMIDE ANTIBIOTICS)] Allergy (Mild , Verified 12/19/17 19:32) atorvastatin [From Lipitor] Allergy (Verified 12/20/17 00:59) Height: 1.55 m Weight: 58.258 kg Patient Problems: Current Active Problems UTI (urinary tract infection) (Acute) - VTE Risk Labs: VTE Related Lab Results Hgb 11.6 g/dL (12.2-16.2) L 12/19/17 19:45 Hct 36.2 % (37.0-47.0) L 12/19/17 19:45 Plt Count 198 K/mm3 (142-424) 12/19/17 19:45 PT 10.3 seconds (9.4-11.8) 12/19/17 19:45 INR 1.00 (0.9-1.1) 12/19/17 19:45 APTT 29.9 seconds (23.6-34.0) 12/19/17 19:45 BUN 28 mg/dL (7-18) H 12/20/17 03:50 Creatinine 1.43 mg/dL (0.55-1.02) H 12/20/17 03:50 Estimated Creat Clear 31 mL/min (0-300) 12/20/17 03:50 Was VTE Risk Assessment Performed: Yes VTE Score: 10 VTE Risk Level: Moderate Risk - Prophylaxis VTE Prophylaxis Ordered?: Yes Types of VTE Prophylaxis: TEDS Knee High Location of Applied Device: Bilateral Lower Extremeties - VTE Diagnosis Confirmed Treatment or plan recommended: Continue Current Treatment
--- NOTE | 2017-12-20 12:26 | Progress Note ---
Internal Medicine - PN: Subj *Date: 12/21/17 *Time: 09:13 Interval history: this wf is doing better but still with abd pain Exam Vital signs and Labs for Last 24 Hours: Temp Pulse Resp BP Pulse Ox 98.1 F 65 18 124/59 100 12/20/17 07:51 12/20/17 07:51 12/20/17 07:51 12/20/17 07:51 12/20/17 07:51 Laboratory Results - last 24 hr 12/19/17 19:45: WBC 8.5, RBC 3.36 L, Hgb 11.6 L, Hct 36.2 L, MCV 107.9 H, MCH 34.6 H, MCHC 32.1, RDW 14.6, Plt Count 198, MPV 8.5, Neut % (Auto) 69.2, Lymph % (Auto) 24.9, [place] % (Auto) 4.1, Eos % (Auto) 1.5, Baso % (Auto) 0.3, Neut # ( Auto) 5.9, Lymph # (Auto) 2.1, [place] # (Auto) 0.4, Eos # (Auto) 0.1, Baso # (Auto ) 0.0 12/19/17 19:45: Sodium 140, Potassium 4.0, Chloride 106, Carbon Dioxide 24, Anion Gap 14.0, BUN 33 H D, Creatinine 1.66 H, Estimated Creat Clear 25, Estimated GFR 30 L, Est GFR ( Amer) 36 L, Glucose 114 H, Calcium 9.2, Total Bilirubin 0.3, AST 14 L D, ALT 26, Alkaline Phosphatase 102, Total Protein 8.0, Albumin 3.3 L, Globulin 4.7 H, Albumin/Globulin Ratio 0.7 L 12/19/17 19:45: Lactate 0.7 12/19/17 19:45: PT 10.3, INR 1.00, APTT 29.9 12/19/17 19:45: Troponin I < 0.02 12/19/17 19:55: Urine Color Yellow, Urine Appearance Sl cloudy, Urine pH 6.0, Ur Specific [place] 1.025, Urine Protein 1+, Urine Glucose (UA) Negative, Urine Ketones Negative, Urine Blood Trace-i, Urine Nitrate Negative, Urine Bilirubin Negative, Urine Urobilinogen 0.2, Ur Leukocyte Esterase 2+ A, Urine RBC 3-5, Urine WBC 10-20, Ur Squamous Epith Cells None, Tyrosine Crystals 3+, Urine Bacteria 2+ 12/19/17 22:15: Troponin I < 0.02 12/20/17 00:55: Troponin I < 0.02 12/20/17 03:50: Troponin I < 0.02 12/20/17 03:50: Sodium 141, Potassium 3.9, Chloride 110 H, Carbon Dioxide 22, Anion Gap 12.9, BUN 28 H, Creatinine 1.43 H, Estimated Creat Clear 31, Estimated GFR 36 L, Est GFR ( Amer) 43 L, Glucose 102, Calcium 8.5 I & O for Last 24 hours: Intake & Output 12/18/17 12/19/17 12/20/17 12/21/17 11:59 11:59 11:59 11:59 Intake Total 763 / 763 Balance 763 / 763 Weight 127 lb 5 oz - Constitutional no acute distress - *Routine HEENT Exam Head: Present: normocephalic Eye: Present: EOMI, PERRL ENT: Present: mucous membranes dry - *Routine Neck Exam Present: supple - *Routine Respiratory Exam Present: CTA bilaterally - *Routine Cardiovascular Exam Present: RRR, murmur, S4 - *Routine Abdominal Exam Present: soft - *Routine Extremities Exam Absent: calf tenderness - *Routine Skin Exam Present: intact - *Routine Neurological Exam Present: alert, CN II-XII intact - Routine Psychiatric Exam Present: unable to assess Assessment and Plan (1) UTI (urinary tract infection) Start date: 12/17/17 Current visit: Yes Status: Acute Qualifiers: Urinary tract infection type: site unspecified Hematuria presence: without hematuria Qualified Code(s): N39.0 - Urinary tract infection, site not specified Category: Medical Code(s): N39.0 - Urinary tract infection, site not specified (2) Pneumonia Current visit: No Status: Acute Qualifiers: Pneumonia type: due to unspecified organism Laterality: right Lung location: upper lobe of lung Qualified Code(s): J18.1 - Lobar pneumonia, unspecified organism Category: Medical Code(s): J18.9 - Pneumonia, unspecified organism
[2017-12-20 13:40] LABS: C-Reactive Protein 0.8 mg/L (0.0-0.9)
[2017-12-20 15:10] LABS: Basophils % 0.2 % (0.1-2.0); Eosinophils # 0.3 K/mm3 (0.0-0.4); Eosinophils % 3.9 % (0.1-12.0); Hematocrit 32.3 % (37.0-47.0); Hemoglobin 10.5 g/dL (12.2-16.2); Lymphocytes # 2.1 K/mm3 (0.7-4.5); Lymphocytes % 27.6 K/mm3 (10-50); Mean Corpuscular HGB Conc 32.6 g/dL (31.8-35.4); Mean Corpuscular Volume 107.4 fl (81-99); Mean Platelet Volume 8.9 fl (7.4-10.4); Monocytes # 0.4 K/mm3 (0.1-1.0); Neutrophils # 4.7 K/mm3 (1.8-7.8); Neutrophils % 63.3 % (37.0-80.0); Platelet Count 167 K/mm3 (142-424); Red Blood Count 3.01 M/mm3 (4.20-5.40); Red Cell Distribution Width 14.7 % (11.5-17.5); White Blood Count 7.5 K/mm3 (4.8-10.8)
--- NOTE | 2017-12-21 08:59 | Pharmacy Consult Notes ---
- Pharmacy Consult Date: 12/21/17 Time: 08:58 Referring provider: DR. ROGERS Reason for Consult:: VANCOMYCIN DOSING Allergies and ADEs:: Allergies Allergy/AdvReac Type Severity Reaction Status Date / Time cephalexin [CEPHALEXIN] Allergy Mild Verified 12/19/17 19:32 metformin [METFORMIN] Allergy Mild Verified 12/19/17 19:32 Sulfa (Sulfonamide Allergy Mild Verified 12/19/17 19:32 Antibiotics) [SULFA (SULFONAMIDE ANTIBIOTICS)] atorvastatin [From Lipitor] Allergy Verified 12/20/17 00:59 Home Medications:: Home Medications Medication Instructions Recorded Confirmed Type Apixaban [Eliquis] 2.5 mg PO BID 09/15/17 12/20/17 History Atenolol [Atenolol 50mg Tab] 50 mg PO DAILY 09/15/17 12/20/17 History Buspirone HCl [Buspar 10mg tablet] 10 mg PO TID 09/15/17 12/20/17 History acetaminophen 500 mg capsule 1,000 mg PO Q6H PRN 10/05/17 12/20/17 History cilostazol 100 mg tablet 100 mg PO BID 10/05/17 12/20/17 History lactulose 10 gram/15 mL oral 30 g PO DAILYP PRN ml 10/05/17 12/20/17 History solution omeprazole 40 mg capsule,delayed 40 mg PO DAILY 10/05/17 12/20/17 History release Baclofen [Lioresal 10mg tablet] 10 mg PO BID 12/17/17 12/20/17 History Ferrous Sulfate [Ferrous Sulfate 325 mg PO DAILY 12/17/17 12/20/17 History 325mg Tablet] dilTIAZem HCl [Cardizem ER 240mg 240 mg PO DAILY 12/17/17 12/20/17 History Capsule] levoFLOXacin [Levaquin 750mg 750 mg PO DAILY 12/19/17 12/20/17 History tablet] Spironolactone [Aldactone 25mg 25 mg PO DAILY 12/20/17 12/20/17 History Tab] Height: 1.55 m Weight: 57.748 kg Laboratory Results:: Laboratory Results - last 24 hr 12/20/17 13:11: C-Reactive Protein 0.8, Amylase 46, Lipase 71 L 12/20/17 14:56: WBC 7.5, RBC 3.01 L, Hgb 10.5 L, Hct 32.3 L, MCV 107.4 H, MCH 35.0 H, MCHC 32.6, RDW 14.7, Plt Count 167, MPV 8.9, Neut % (Auto) 63.3, Lymph % (Auto) 27.6, [place] % (Auto) 5.0, Eos % (Auto) 3.9, Baso % (Auto) 0.2, Neut # ( Auto) 4.7, Lymph # (Auto) 2.1, [place] # (Auto) 0.4, Eos # (Auto) 0.3, Baso # (Auto ) 0.0 Medical History: Reports:: Atrial Fibrillation, Cancer, Coronary Artery Disease , Cerebrovascular Accident, Hyperlipidemia, Hypertension Denies:: Diabetes Mellitus Type 1, Diabetes Mellitus Type 2, MRSA Assessment and Plan (1) UTI (urinary tract infection) Start date: 12/17/17 Current visit: Yes Status: Acute Qualifiers: Urinary tract infection type: site unspecified Hematuria presence: without hematuria Qualified Code(s): N39.0 - Urinary tract infection, site not specified Category: Medical Code(s): N39.0 - Urinary tract infection, site not specified (2) Pneumonia Current visit: No Status: Acute Qualifiers: Pneumonia type: due to unspecified organism Laterality: right Lung location: upper lobe of lung Qualified Code(s): J18.1 - Lobar pneumonia, unspecified organism Category: Medical Code(s): J18.9 - Pneumonia, unspecified organism - Assessment and plan all Dx Assessment and Plan for all problems:: BASED ON PATIENT FACTORS, RECOMMEND VANCOMYCIN 1250 MG IV ONCE, FOLLOWED BY VANCOMYCIN 1 GM IV Q36H. PHARMACY WILL FOLLOW DAILY AND ADJUST APPROPRIATE.
--- NOTE | 2017-12-21 09:15 | Progress Note ---
Internal Medicine - PN: Subj Interval history: doing better but has positive - blood culture Exam Vital signs and Labs for Last 24 Hours: Temp Pulse Resp BP Pulse Ox 97.7 F 64 20 129/48 99 12/21/17 08:00 12/21/17 08:00 12/21/17 08:00 12/21/17 08:00 12/21/17 08:00 Laboratory Results - last 24 hr 12/20/17 13:11: C-Reactive Protein 0.8, Amylase 46, Lipase 71 L 12/20/17 14:56: WBC 7.5, RBC 3.01 L, Hgb 10.5 L, Hct 32.3 L, MCV 107.4 H, MCH 35.0 H, MCHC 32.6, RDW 14.7, Plt Count 167, MPV 8.9, Neut % (Auto) 63.3, Lymph % (Auto) 27.6, [place] % (Auto) 5.0, Eos % (Auto) 3.9, Baso % (Auto) 0.2, Neut # (Auto) 4.7, Lymph # (Auto) 2.1, [place] # (Auto) 0.4, Eos # (Auto) 0.3, Baso # (Auto) 0.0 I & O for Last 24 hours: Intake & Output 12/18/17 12/19/17 12/20/17 12/21/17 11:59 11:59 11:59 11:59 Intake Total 763 / 763 2816 / 2816 Output Total 950 / 950 Balance 763 / 763 1866 / 1866 Weight 127 lb 5 oz 127 lb 5.001 oz Microbiology Reports for the Last 24 Hours: Microbiology 12/19/17 19:55 Urine,Catheterized Urine Culture - Preliminary 12/19/17 19:45 Blood Blood Culture - Preliminary - Constitutional no acute distress - *Routine HEENT Exam Head: Present: normocephalic Eye: Present: EOMI, PERRL ENT: Present: mucous membranes dry - *Routine Neck Exam Absent: JVD - *Routine Respiratory Exam Present: decreased breath sounds - *Routine Cardiovascular Exam Present: RRR, murmur, S4 - *Routine Abdominal Exam Present: soft - *Routine Extremities Exam Present: edema. Absent: calf tenderness - *Routine Skin Exam Present: dry - *Routine Neurological Exam Present: alert, CN II-XII intact. Absent: motor deficit - Routine Psychiatric Exam Present: unable to assess Assessment and Plan (1) UTI (urinary tract infection) Start date: 12/17/17 Current visit: Yes Status: Acute Qualifiers: Urinary tract infection type: site unspecified Hematuria presence: without hematuria Qualified Code(s): N39.0 - Urinary tract infection, site not specified Category: Medical Code(s): N39.0 - Urinary tract infection, site not specified (2) Pneumonia Current visit: No Status: Acute Qualifiers: Pneumonia type: due to unspecified organism Laterality: right Lung location: upper lobe of lung Qualified Code(s): J18.1 - Lobar pneumonia, unspecified organism Category: Medical Code(s): J18.9 - Pneumonia, unspecified organism (3) Staphylococcus aureus bacteremia Current visit: Yes Status: Acute Category: Medical Code(s): R78.81 - Bacteremia
[2017-12-22 08:24] LABS: Basophils % 0.3 % (0.1-2.0); Eosinophils # 0.2 K/mm3 (0.0-0.4); Eosinophils % 2.4 % (0.1-12.0); Hematocrit 34.7 % (37.0-47.0); Hemoglobin 11.1 g/dL (12.2-16.2); Lymphocytes % 11.3 K/mm3 (10-50); Mean Corpuscular HGB Conc 32.1 g/dL (31.8-35.4); Mean Corpuscular Hemoglobin 35.2 pg (27.0-31.2); Mean Corpuscular Volume 109.7 fl (81-99); Mean Platelet Volume 9.3 fl (7.4-10.4); Monocytes # 0.2 K/mm3 (0.1-1.0); Monocytes % 2.3 % (1.7-9.3); Neutrophils # 7.8 K/mm3 (1.8-7.8); Neutrophils % 83.8 % (37.0-80.0); Platelet Count 143 K/mm3 (142-424); Red Blood Count 3.16 M/mm3 (4.20-5.40); Red Cell Distribution Width 14.5 % (11.5-17.5); White Blood Count 9.3 K/mm3 (4.8-10.8)
[2017-12-22 08:32] LABS: Calcium 8.3 mg/dL (8.5-10.1)
--- NOTE | 2017-12-22 09:37 | Progress Note ---
Internal Medicine - PN: Subj *Date: 12/22/17 *Time: 08:42 Interval history: doing better Exam Vital signs and Labs for Last 24 Hours: Temp Pulse Resp BP Pulse Ox 98.5 F 77 18 134/57 99 12/22/17 08:00 12/22/17 08:00 12/22/17 08:00 12/22/17 08:00 12/22/17 08:00 Laboratory Results - last 24 hr 12/22/17 08:15: WBC 9.3, RBC 3.16 L, Hgb 11.1 L, Hct 34.7 L, MCV 109.7 H, MCH 35.2 H, MCHC 32.1, RDW 14.5, Plt Count 143, MPV 9.3, Neut % (Auto) 83.8 H, Lymph % (Auto) 11.3, [place] % (Auto) 2.3, Eos % (Auto) 2.4, Baso % (Auto) 0.3, Neut # (Auto) 7.8, Lymph # (Auto) 1.0, [place] # (Auto) 0.2, Eos # (Auto) 0.2, Baso # (Auto) 0.0 12/22/17 08:15: Sodium 137, Potassium 4.0, Chloride 108 H, Carbon Dioxide 21, Anion Gap 12.0, BUN 21 H, Creatinine 1.49 H, Estimated Creat Clear 29, Estimated GFR 34 L, Est GFR ( Amer) 41 L, Glucose 146 H, Calcium 8.3 L I & O for Last 24 hours: Intake & Output 12/19/17 12/20/17 12/21/17 12/22/17 11:59 11:59 11:59 11:59 Intake Total 763 / 763 2816 / 2816 600 / 600 Output Total 950 / 950 1200 / 1200 Balance 763 / 763 1866 / 1866 -600 / -600 Weight 127 lb 5 oz 127 lb 5.001 oz Microbiology Reports for the Last 24 Hours: Microbiology 12/19/17 19:55 Urine,Catheterized Urine Culture - Preliminary 12/19/17 19:45 Blood Blood Culture - Preliminary NO GROWTH AFTER 48 HOURS 12/19/17 19:45 Blood Blood Culture - Preliminary - Constitutional no acute distress - *Routine HEENT Exam Head: Present: normocephalic Eye: Present: EOMI, PERRL ENT: Present: mucous membranes dry - *Routine Neck Exam Present: supple - *Routine Respiratory Exam Present: decreased breath sounds - *Routine Cardiovascular Exam Present: RRR, murmur - *Routine Abdominal Exam Present: soft - *Routine Extremities Exam Absent: calf tenderness - *Routine Skin Exam Present: intact - *Routine Neurological Exam Present: alert - Routine Psychiatric Exam Present: unable to assess Assessment and Plan (1) UTI (urinary tract infection) Start date: 12/17/17 Current visit: Yes Status: Acute Qualifiers: Urinary tract infection type: site unspecified Hematuria presence: without hematuria Qualified Code(s): N39.0 - Urinary tract infection, site not specified Category: Medical Code(s): N39.0 - Urinary tract infection, site not specified (2) Pneumonia Current visit: No Status: Acute Qualifiers: Pneumonia type: due to unspecified organism Laterality: right Lung location: upper lobe of lung Qualified Code(s): J18.1 - Lobar pneumonia, unspecified organism Category: Medical Code(s): J18.9 - Pneumonia, unspecified organism (3) Staphylococcus aureus bacteremia Current visit: Yes Status: Acute Category: Medical Code(s): R78.81 - Bacteremia
[2017-12-23 10:34] LABS: Basophils % 0.3 % (0.1-2.0); Eosinophils # 0.2 K/mm3 (0.0-0.4); Eosinophils % 2.1 % (0.1-12.0); Hematocrit 33.3 % (37.0-47.0); Hemoglobin 10.7 g/dL (12.2-16.2); Lymphocytes # 1.3 K/mm3 (0.7-4.5); Mean Corpuscular HGB Conc 32.1 g/dL (31.8-35.4); Mean Corpuscular Hemoglobin 34.7 pg (27.0-31.2); Mean Corpuscular Volume 107.9 fl (81-99); Mean Platelet Volume 9.6 fl (7.4-10.4); Monocytes # 0.3 K/mm3 (0.1-1.0); Monocytes % 3.6 % (1.7-9.3); Neutrophils # 5.7 K/mm3 (1.8-7.8); Platelet Count 147 K/mm3 (142-424); Red Blood Count 3.08 M/mm3 (4.20-5.40); Red Cell Distribution Width 14.6 % (11.5-17.5); White Blood Count 7.4 K/mm3 (4.8-10.8)
[2017-12-23 11:04] LABS: Albumin Level 2.8 gm/dL (3.4-5.0); Albumin/Globulin Ratio 0.7 (1.1-1.8); Anion Gap 11.8 mEq/L (5-15); Bilirubin,Total 0.3 mg/dL (0.2-1.0); Calcium 8.5 mg/dL (8.5-10.1); Globulin 4.2 gm/dl (1.3-3.2); Potassium 3.8 mmoL/L (3.5-5.1)
--- NOTE | 2017-12-23 13:15 | Progress Note ---
Internal Medicine - PN: Subj *Date: 12/23/17 *Time: 09:00 Exam Vital signs and Labs for Last 24 Hours: Temp Pulse Resp BP Pulse Ox 98.6 F 87 16 158/79 97 12/23/17 08:00 12/23/17 08:00 12/23/17 08:00 12/23/17 08:00 12/23/17 08:00 Laboratory Results - last 24 hr 12/22/17 14:00: Stl Aeromonas (PCR) Not detected, Stl C. cayetanensis PCR Not detected, Stool Rotavirus (PCR) Not detected, Stl Adenov F 40/41 PCR Not detected, Stool Astrovirus (PCR) Not detected, Stool Campylobacter PCR Not detected, Stl C.difficile Tox PCR Not detected, Stool Cryptosporidium PCR Not detected, Stl E.coli Shiga Tox PCR Not detected, Stool E coli O157 PCR Not detected, Stl Enterotoxigenic E PCR Not detected, Stool EPEC (PCR) Not detected, Stool EAEC (PCR) Not detected, Stl E. histolytica PCR Not detected, Stool Giardia Lamblia PCR Not detected, Stool Salmonella PCR Not detected, Stool Sapovirus (PCR) Not detected, Stl P. shigelloides PCR Not detected, Stl Shigella/EIEC PCR Not detected, St Y.enterocolitica PCR Not detected, Stool Vibrio (PCR) Not detected, Stl Vibrio cholerae PCR Not detected, Stl Norovirus GI/GII PCR Not detected 12/23/17 10:23: WBC 7.4, RBC 3.08 L, Hgb 10.7 L, Hct 33.3 L, MCV 107.9 H, MCH 34.7 H, MCHC 32.1, RDW 14.6, Plt Count 147, MPV 9.6, Neut % (Auto) 77.0, Lymph % (Auto) 17.0, [place] % (Auto) 3.6, Eos % (Auto) 2.1, Baso % (Auto) 0.3, Neut # (Auto) 5.7, Lymph # (Auto) 1.3, [place] # (Auto) 0.3, Eos # (Auto) 0.2, Baso # (Auto) 0.0 12/23/17 10:23: Sodium 139, Potassium 3.8, Chloride 109 H, Carbon Dioxide 22, Anion Gap 11.8, BUN 16, Creatinine 1.36 H, Estimated Creat Clear 31, Estimated GFR 38 L, Est GFR ( Amer) 46 L, Glucose 118 H, Calcium 8.5, Total Bilirubin 0.3, AST 10 L, ALT 18, Alkaline Phosphatase 81, Total Protein 7.0, Albumin 2.8 L, Globulin 4.2 H, Albumin/Globulin Ratio 0.7 L I & O for Last 24 hours: Intake & Output 12/21/17 12/22/17 12/23/17 12/24/17 11:59 11:59 11:59 11:59 Intake Total 2816 / 2816 600 / 600 960 / 960 Output Total 950 / 950 1200 / 1200 2475 / 2475 Balance 1866 / 1866 -600 / -600 -1515 / -1515 Weight 127 lb 5.001 oz 123 lb 6 oz Microbiology Reports for the Last 24 Hours: Microbiology 12/19/17 19:45 Blood Blood Culture - Final Staphylococcus epidermidis - *Routine HEENT Exam Head: Present: normocephalic Eye: Present: EOMI ENT: Present: mucous membranes moist - *Routine Neck Exam Present: supple - *Routine Respiratory Exam Present: CTA bilaterally - *Routine Cardiovascular Exam Present: RRR - *Routine Abdominal Exam Present: soft, normoactive bowel sounds - *Routine Extremities Exam Present: full ROM - *Routine Skin Exam Present: warm. Absent: rash - *Routine Neurological Exam Present: alert, altered mental status Assessment and Plan (1) UTI (urinary tract infection) Start date: 12/17/17 Current visit: Yes Status: Acute Qualifiers: Urinary tract infection type: site unspecified Hematuria presence: without hematuria Qualified Code(s): N39.0 - Urinary tract infection, site not specified Category: Medical Code(s): N39.0 - Urinary tract infection, site not specified (2) Pneumonia Current visit: No Status: Acute Qualifiers: Pneumonia type: due to unspecified organism Laterality: right Lung location: upper lobe of lung Qualified Code(s): J18.1 - Lobar pneumonia, unspecified organism Category: Medical Code(s): J18.9 - Pneumonia, unspecified organism (3) Staphylococcus aureus bacteremia Current visit: Yes Status: Acute Category: Medical Code(s): R78.81 - Bacteremia - Assessment and plan all Dx Assessment and Plan for all problems:: rounded with erich, all orders per erich
[2017-12-24 06:53] LABS: Basophils % 0.5 % (0.1-2.0); Eosinophils # 0.3 K/mm3 (0.0-0.4); Eosinophils % 3.1 % (0.1-12.0); Hematocrit 32.7 % (37.0-47.0); Hemoglobin 10.5 g/dL (12.2-16.2); Lymphocytes # 1.8 K/mm3 (0.7-4.5); Lymphocytes % 21.8 K/mm3 (10-50); Mean Corpuscular HGB Conc 32.1 g/dL (31.8-35.4); Mean Corpuscular Hemoglobin 34.8 pg (27.0-31.2); Mean Corpuscular Volume 108.5 fl (81-99); Mean Platelet Volume 8.8 fl (7.4-10.4); Monocytes # 0.4 K/mm3 (0.1-1.0); Monocytes % 4.5 % (1.7-9.3); Neutrophils # 5.7 K/mm3 (1.8-7.8); Neutrophils % 70.1 % (37.0-80.0); Platelet Count 149 K/mm3 (142-424); Red Blood Count 3.01 M/mm3 (4.20-5.40); Red Cell Distribution Width 14.8 % (11.5-17.5); White Blood Count 8.1 K/mm3 (4.8-10.8)
[2017-12-24 07:10] LABS: Albumin Level 2.7 gm/dL (3.4-5.0); Albumin/Globulin Ratio 0.7 (1.1-1.8); Anion Gap 10.9 mEq/L (5-15); Bilirubin,Total 0.3 mg/dL (0.2-1.0); Calcium 8.6 mg/dL (8.5-10.1); Globulin 4.1 gm/dl (1.3-3.2); Potassium 3.9 mmoL/L (3.5-5.1); Total Protein,Serum 6.8 gm/dL (6.4-8.2)
--- NOTE | 2017-12-24 10:04 | Discharge Summary ---
General - General Admission date:: 12/21/17 Discharge date: 12/24/17 HPI HPI: Patient was seen on 12/17/17 with UTI and possible pneumonia. Sent from [facility] today with A[facility]. Hospital Course Hospital Course: iv antibotics - plem positive blood cx which was a contam ivf, monitor of mental status will dc to [facility] with continue monitoring mental status and vitals Objective Vital signs: Temp Pulse Resp BP Pulse Ox 97.5 F L 68 20 138/62 99 12/24/17 08:00 12/24/17 08:00 12/24/17 08:00 12/24/17 08:00 12/24/17 08:00 no acute distress - *Routine HEENT Exam Head: Present: normocephalic Eye: Present: EOMI ENT: Present: mucous membranes moist - *Routine Neck Exam Present: supple - *Routine Respiratory Exam Present: CTA bilaterally - *Routine Cardiovascular Exam Present: RRR - *Routine Abdominal Exam Present: soft, normoactive bowel sounds - *Routine Extremities Exam Present: full ROM - *Routine Skin Exam Present: intact - *Routine Neurological Exam Present: alert - Routine Psychiatric Exam Present: normal affect Results Labs on day of discharge: Labs from last 24 hours 12/24/17 12/24/17 12/23/17 06:22 06:22 10:23 WBC 8.1 RBC 3.01 L Hgb 10.5 L Hct 32.7 L MCV 108.5 H MCH 34.8 H MCHC 32.1 RDW 14.8 Plt Count 149 MPV 8.8 Neut % (Auto) 70.1 Lymph % (Auto) 21.8 [place] % (Auto) 4.5 Eos % (Auto) 3.1 Baso % (Auto) 0.5 Neut # (Auto) 5.7 Lymph # (Auto) 1.8 [place] # (Auto) 0.4 Eos # (Auto) 0.3 Baso # (Auto) 0.0 Sodium 140 139 Potassium 3.9 3.8 Chloride 109 H 109 H Carbon Dioxide 24 22 Anion Gap 10.9 11.8 BUN 16 16 Creatinine 1.36 H 1.36 H Estimated Creat Clear 31 31 Estimated GFR 38 L 38 L Est GFR ( Amer) 46 L 46 L Glucose 105 118 H Calcium 8.6 8.5 Total Bilirubin 0.3 0.3 AST 12 L 10 L ALT 16 18 Alkaline Phosphatase 80 81 Total Protein 6.8 7.0 Albumin 2.7 L 2.8 L Globulin 4.1 H 4.2 H Albumin/Globulin Ratio 0.7 L 0.7 L 12/23/17 10:23 WBC 7.4 RBC 3.08 L Hgb 10.7 L Hct 33.3 L MCV 107.9 H MCH 34.7 H MCHC 32.1 RDW 14.6 Plt Count 147 MPV 9.6 Neut % (Auto) 77.0 Lymph % (Auto) 17.0 [place] % (Auto) 3.6 Eos % (Auto) 2.1 Baso % (Auto) 0.3 Neut # (Auto) 5.7 Lymph # (Auto) 1.3 [place] # (Auto) 0.3 Eos # (Auto) 0.2 Baso # (Auto) 0.0 Sodium Potassium Chloride Carbon Dioxide Anion Gap BUN Creatinine Estimated Creat Clear Estimated GFR Est GFR ( Amer) Glucose Calcium Total Bilirubin AST ALT Alkaline Phosphatase Total Protein Albumin Globulin Albumin/Globulin Ratio Preliminary micro results at discharge 12/19/17 19:55 Urine Culture - Preliminary Urine,Catheterized 12/19/17 19:45 Blood Culture - Preliminary Blood NO GROWTH AFTER 48 HOURS - Additional Comments rounded with erich, all orders per erich DS: Diagnosis - Discharge Diagnosis (1) UTI (urinary tract infection) Status: Acute (2) Pneumonia Status: Acute (3) Staphylococcus aureus bacteremia Status: Acute (4) CVA, old, cognitive deficits Status: Acute (5) 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 Home Medications: Home Medications Medication Instructions Recorded Confirmed Type Apixaban [Eliquis] 2.5 mg PO BID 09/15/17 12/20/17 History Atenolol [Atenolol 50mg Tab] 50 mg PO DAILY 09/15/17 12/20/17 History Buspirone HCl [Buspar 10mg tablet] 10 mg PO TID 09/15/17 12/20/17 History acetaminophen 500 mg capsule 1,000 mg PO Q6H PRN 10/05/17 12/20/17 History cilostazol 100 mg tablet 100 mg PO BID 10/05/17 12/20/17 History lactulose 10 gram/15 mL oral 30 g PO DAILYP PRN ml 10/05/17 12/20/17 History solution omeprazole 40 mg capsule,delayed 40 mg PO DAILY 10/05/17 12/20/17 History release Baclofen [Lioresal 10mg tablet] 10 mg PO BID 12/17/17 12/20/17 History Ferrous Sulfate [Ferrous Sulfate 325 mg PO DAILY 12/17/17 12/20/17 History 325mg Tablet] dilTIAZem HCl [Cardizem ER 240mg 240 mg PO DAILY 12/17/17 12/20/17 History Capsule] levoFLOXacin [Levaquin 750mg 750 mg PO DAILY 12/19/17 12/20/17 History tablet] Spironolactone [Aldactone 25mg 25 mg PO DAILY 12/20/17 12/20/17 History Tab] Prescriptions/Medication Reconciliation: Continue acetaminophen 500 mg capsule 1,000 mg PO Q6H PRN PRN Reason: Mild Pain/Fever cilostazol 100 mg tablet 100 mg PO BID omeprazole 40 mg capsule,delayed release 40 mg PO DAILY lactulose 10 gram/15 mL oral solution 30 g PO DAILYP PRN ml PRN Reason: Constipation Buspirone HCl [Buspar 10mg tablet] 10 mg PO TID Atenolol [Atenolol 50mg Tab] 50 mg PO DAILY Apixaban [Eliquis] 2.5 mg PO BID Baclofen [Lioresal 10mg tablet] 10 mg PO BID Ferrous Sulfate [Ferrous Sulfate 325mg Tablet] 325 mg PO DAILY dilTIAZem HCl [Cardizem ER 240mg Capsule] 240 mg PO DAILY Spironolactone [Aldactone 25mg Tab] 25 mg PO DAILY levoFLOXacin [Levaquin 750mg tablet] 750 mg PO DAILY
== END 2017-12-24 14:36 ==
LOC: ER 19:21 → 2ND 19:21
PROVIDERS: ADMIT Emergency Medicine; ATTEND Emergency Medicine

== ENCOUNTER → 2018-05-11 13:29 | Outpatient (CLI) | payer MEDICARE, OTHER, MEDICAID, SELFPAY ==
--- NOTE | 2018-05-11 13:52 | CT_ITS ---
CT head/brain wo con HISTORY: ITS.REASON: FIXED STARE,INCREASED MUSCLE WEAKNESS ORDERING PHYSICIAN: Wiliam Hughes MD PATIENT AGE: 78 years COMPARISON: 12/19/2017 TECHNIQUE: Axial images obtained without contrast. Brain and bone windows reviewed. All CT scans at the facility use one or more dose reduction, viz: automated exposure control, ma/kV adjustment per patient size (including targeted exams where dose is matched to indication, i.e. head), or iterative reconstruction technique. FINDINGS: No midline shift, mass effect, intracranial hemorrhage, hydrocephalus, or extra-axial fluid collection is evident. There is a 9 mm area of decreased attenuation within the left aspect of the shawanda. This may been present on the previous study but better demonstrated on today's exam as there was some beam hardening artifact in that area before. There is diffuse periventricular ischemic gliotic change. There is an old lacunar infarction of the posterior limb of the left internal capsule. The calvarium has an unremarkable appearance. No mastoid effusion. No sinus air-fluid levels.. IMPRESSION: 1. Atrophy with chronic ischemic changes. 2. Small area of low density in the left aspect of the shawanda consistent with an area of ischemic gliosis or small area of infarction. MRI with diffusion imaging may be of further value to determine the age of this finding if clinically warranted
== END ==
PROVIDERS: PCP Emergency Medicine; Visit Provider Emergency Medicine
DX: H51.8 Other specified disorders of binocular movement (principal); M62.81 Muscle weakness (generalized); H53.8 Other visual disturbances
CPT/HCPCS: 70450

== ENCOUNTER 2020-01-26 12:27 | Observation (INO) | payer MEDICARE, OTHER, MEDICAID, SELFPAY ==
[2020-01-26] VITALS (9 sets, daily range): BP systolic 98–138; BP diastolic 45–78; PULSE 47–59; RESP 16–24; TEMP 36.6–37; O2SAT 96–99; BMI 26.6; BMI 21.5
--- NOTE | 2020-01-26 12:45 | CT_ITS ---
PROCEDURE: CT CHEST WO CON Referring Doctor: Sean Dukes Patient Age:80Y CLINICAL INDICATION: rt chest wall hematoma on eliquis Right chest pain COMPARISON: CT CHESTWO CT chest wo con from 12/17/[address] abdomen pelvis wo con from 12/20/2017 TECHNIQUE: No IV contrast. Helical axial images obtained with sagittal and coronal reformats. All CT scans at the facility use one or more dose reduction, viz: automated exposure control, ma/kV adjustment per patient size (including targeted exams where dose is matched to indication, i.e. head), or iterative reconstruction technique. FINDINGS: .MEDIASTINAL AND HILAR STRUCTURES: No mediastinal or hilar mass evident. No dominant adenopathy. Calcified granulomatous nodes HEART: . mild cardiomegaly. No pericardial effusion. Extensive coronary artery calcification. Mitral annular calcification.. AORTA: No acute finding. No thoracic aortic aneurysm.. Diffuse atherosclerotic calcification aorta and its branches. Extensive coronary calcification Without IV contrast I cannot exclude a dissection nor evaluate internal structure of aorta but overall appears similar to the previous 2018 study on this noncontrast exam with no acute findings on this noncontrast study. No mediastinal hematoma. Would raise possibility of possible anemia given the relative low density of the blood within the aorta. LUNGS:. no significant findings. No mass or consolidation. The lung linder are clear with only some mild basilar atelectasis. But no pneumothorax, no pleural effusion. . Likely small hiatal hernia. PLEURAL SPACES: No significant effusion. No evidence of pneumothorax. BONY STRUCTURES: Prior study from 2018 is very helpful and showing that the wedge compression fracture at T3 and the severe wedge compression at T7 are old features but they have not changed since 2018. No new findings at the thoracic spine. So Chest wall. The most striking finding is a large focal soft tissue hematoma overlying the right chest wall. Extends for 16 cm length 7.5 cm AP 5 cm wide... Of there is a edema in the soft tissues posterior to the large hematoma. 21 Surprisingly I do not see any associated rib fractures.. Right shoulder and shoulder girdle appear symmetric and intact as well. LYMPH NODES: No enlarged lymph nodes evident. UPPER ABDOMEN: Unremarkable. ADDITIONAL FINDINGS: Postsurgical changes left axilla left breast IMPRESSION: Old stable wedge compression fractures of T3 and T7. No acute osseous findings at T-spine nor ribs Very large hematoma overlying the right chest wall no underlying rib fractures identified No significant acute findings at the lungs. No pneumothorax nor effusion the. No focal infiltrate. Mild chronic changes. Cardiomegaly. Extensive coronary artery calcification a. Dictated by: Israel Trujillo MD 01/26/2020 15:19 Israel Trujillo MD in [place] 01/26/2020 15:19
--- NOTE | 2020-01-26 12:46 | CT_ITS ---
PROCEDURE: CT HEAD/BRAIN WO CON Referring Doctor: Sean Dukes Patient Age:80Y CLINICAL INDICATION: suspected fall multiple lead mental status. Suspect possible fall COMPARISON: CT HEADWO CT head/brain wo con from 09/18/[address] head/brain wo con from 05/11/2018 TECHNIQUE: No IV contrast standard axial images were obtained. All CT scans at the facility use one or more dose reduction, viz: automated exposure control, ma/kV adjustment per patient size (including targeted exams where dose is matched to indication, i.e. head), or iterative reconstruction technique. FINDINGS: No acute intracranial findings. No significant change since previous CT head study April 2018 Diffuse cerebral atrophy a appears to account for the prominence of the lateral ventricles. Diffuse low-density areas in the periventricular deep white matter reflecting chronic small vessel deep white-matter ischemic gliotic. Also with this there is a stable Small old lacune at the posterior limb of the left internal capsule . Faint physiologic calcification of the basal ganglia again seen bilaterally. No territorial infarct. No significant new findings No intracranial hemorrhage.. The ventricles and basal cisterns appear clear and stable no mass or midline shift nor mass effect. No subdural or extra-axial fluid collection is evident. Posterior fossa unremarkable. Skull intact- . Right mastoid air cells well-developed with with only a few opacified air cells towards right mastoid tip. Right middle ear clear. Clear Previous left mastoid antrectomy. Prominent cerumen and material filled the external auditory canal on left. Left middle ear is clear Visualized paranasal sinuses satisfactory no air-fluid levels . IMPRESSION: No acute intracranial findings . No significant change since previous CT head April 2018 and August 2017 . Cerebral atrophy. . Chronic small vessel deep white-matter ischemic gliotic changes . Old longstanding small lacunar infarct left posterior limb internal capsule Dictated by: Israel Trujillo MD 01/26/2020 14:55 Israel Trujillo MD in [place] 01/26/2020 14:55
--- NOTE | 2020-01-26 12:47 | CT_ITS ---
PROCEDURE: CT CERVICAL SPINE WO CON Referring Doctor: Sean Dukes Patient Age:80Y CLINICAL INDICATION: suspected fall altered mental status.. Head and neck pain COMPARISON: CT CSWO CT CERVICAL SPINE W/O CONT from 10/19/[address] chest wo con from 12/17/[address] abdomen pelvis wo con from 12/20/[address] CHEST WO CON from 01/26/2020 TECHNIQUE: No IV contrast Helical axial images obtained with sagittal and coronal reformats with thickened axial image. All CT scans at the facility use one or more dose reduction, viz: automated exposure control, ma/kV adjustment per patient size (including targeted exams where dose is matched to indication, i.e. head), or iterative reconstruction technique. FINDINGS: Prior studies are helpful in supporting no acute fracture or subluxation at the cervical spine.. No significant new findings at the cervical spine. . Satisfactory alignment. Satisfactory prevertebral soft tissues. Normal facet relationships C1-C2 relationships are normal. Normal cranial cervical junction. Prominent hypertrophic degenerative facet changes bilaterally which are most prominent to the left at C4/5 are again noted at C4/5.. Stable less than 2 mm degenerative anterolisthesis of C4 on 5 due to the degenerative facet changes Marked degenerative disc space narrowing C5/6 with posterior hypertrophic ridging and spondylosis-appears stable. C6/7. Disc space narrowing and cervical spondylosis similar to previous study posterior ridging most evident midline and to the right. Right foraminal encroachment more so than left but C6/7 disc intact T1/T2 disc intact T3 wedge compression fracture is old and stable since 2018 CT chest study IMPRESSION: 1.Cervical spine intact with no acute fracture nor subluxation. 2.Stable prominent degenerative changes throughout cervical spine: . Degenerative disc space narrowing, cervical spondylosis most evident at and C5/6-C6/7. . Degenerative facet changes throughout C-spine bilaterally but most pronounced at C4/5 words associated with slight stable mild degenerative offset of of C4 on 5 3. Stable old wedge compression fracture at T3 unchanged since 2018 CT chest Dictated by: Israel Trujillo MD 01/26/2020 15:24 Israel Trujillo MD in [place] 01/26/2020 15:24
--- NOTE | 2020-01-26 12:48 | XR_ITS ---
PROCEDURE: XR SHOULDER RT MIN 2V CLINICAL INDICATION: pain COMPARISON: No exams were available for comparison FINDINGS: The humeral head and glenoid appear intact. The clavicle is intact and the AC joint appears normal. There are no soft tissue calcifications. The visualized portions of the right upper ribs appear intact. IMPRESSION: No acute findings. Dictated by: Dr. Harjit Hummel MD 01/26/2020 15:15 Dr. Harjit Hummel MD in [place] 01/26/2020 15:15
--- NOTE | 2020-01-26 12:49 | HMH.EDGENADL ---
ED Disposition Clinical Impression: Acute kidney injury superimposed on chronic kidney disease UTI (urinary tract infection) Qualifiers: Urinary tract infection type: acute cystitis Hematoma, chest wall Qualifiers: Encounter type: initial encounter Laterality: right Qualified Code(s): S20.211A - Contusion of right front wall of thorax, initial encounter Disposition: Admitted As Inpatient Condition on Discharge: Good - Critical Care Critical Care Time: No Attestation: On 01/26/20, the high probability of a clinically significant, sudden or life threatening deterioration of the following system(s) required my full and direct attention, intervention and personal management. The time I documented below is in addition to time spent performing reported procedures but includes the following listed in this critical care notation. Medical Decision Making - Joss Inquiry Pt receiving controlled substance: No Vital Signs: 01/26/20 12:28 01/26/20 12:58 01/26/20 13:28 Temperature 98.6 F Temperature Source Oral Pulse Rate [Radial] 53 L 54 L 50 L Respiratory Rate 18 24 22 Blood Pressure [Right Arm] 104/47 L 104/52 L 98/45 L Blood Pressure Mean [Right Arm] 66 69 62 Blood Pressure Source [Right Arm] Automatic Cuff Automatic Cuff Blood Pressure Position [Right Arm] Sitting Sitting Sitting 02 Sat by Pulse Oximetry 98 98 97 Oxygen Delivery Method Room Air Room Air Room Air 01/26/20 14:12 01/26/20 16:00 Temperature Temperature Source Pulse Rate [Radial] 52 L 47 L Respiratory Rate 22 20 Blood Pressure [Right Arm] 113/49 L 102/47 L Blood Pressure Mean [Right Arm] 70 65 Blood Pressure Source [Right Arm] Automatic Cuff Automatic Cuff Blood Pressure Position [Right Arm] Sitting 02 Sat by Pulse Oximetry 97 97 Oxygen Delivery Method Room Air - Lab Data Lab Results 01/26/20 12:55: WBC 13.7 H, RBC 2.74 L, Hgb 9.9 L, Hct 30.3 L, MCV 110.7 H, MCH 36.2 H, MCHC 32.7, RDW 13.3, Plt Count 141 L, MPV 10.2, Neut % (Auto) 74.3, Lymph % (Auto) 20.1, [place] % (Auto) 4.2, Eos % (Auto) 1.1, Baso % (Auto) 0.3, Neut # (Auto) 10.2 H, Lymph # (Auto) 2.8, [place] # (Auto) 0.6, Eos # (Auto) 0.2, Baso # (Auto) 0.0 01/26/20 12:55: Sodium 138, Potassium 4.8, Chloride 106, Carbon Dioxide 23, Anion Gap 13.8, BUN 38 H, Creatinine 1.90 H, Estimated Creat Clear 28, Estimated GFR 26 L, Est GFR ( Amer) 31 L, Glucose 189 H, Calcium 8.8, Total Bilirubin 0.3, AST 22, ALT 16, Alkaline Phosphatase 64, Total Protein 6.6, Albumin 3.3 L, Globulin 3.3 H, Albumin/Globulin Ratio 1.0 L 01/26/20 12:55: PT 11.3, INR 1.02 01/26/20 12:55: SARS-CoV-2 IgG Ab (Rapid) Negative, SARS-CoV-2 IgM Ab (Rapid) Negative 01/26/20 15:08: Urine Color Yellow, Urine Appearance Clear, Urine pH 5.5, Ur Specific [place] 1.020, Urine Protein 1+, Urine Glucose (UA) Negative, Urine Ketones Negative, Urine Blood 1+, Urine Nitrate Negative, Urine Bilirubin Negative, Urine Urobilinogen 0.2, Ur Leukocyte Esterase 2+ A, Urine RBC 5-10, Urine WBC 10-20, Ur Squamous Epith Cells 3-5, Urine Bacteria 1+ Result diagrams: 01/26/20 12:55 01/26/20 12:55 Orders (Tests/Meds): ED MEDICATIONS Generic Name Dose Route Start Last Admin Trade Name Freq PRN Reason Stop Dose Admin Acetaminophen 650 mg 01/26/20 16:47 Acetaminophen 325mg Tab PO 02/25/20 16:46 Q4HP PRN As Needed for Fever or Pain Atenolol 50 mg 01/27/20 09:00 Atenolol 50mg Tablet PO 02/26/20 08:59 DAILY DASIA Buspirone HCl 10 mg 01/27/20 09:00 Buspirone Hcl 10 Mg Tablet PO 02/26/20 08:59 DAILY DASIA Docusate Sodium 100 mg 01/27/20 09:00 Docusate Sodium 100 Mg Capsule PO 02/26/20 08:59 DAILY DASIA Ferrous Sulfate 325 mg 01/27/20 09:00 Ferrous Sulfate 325mg Tablet PO 02/26/20 08:59 DAILY DASIA Ertapenem 1 gm/ Sodium 50 mls @ 100 mls/hr 01/27/20 16:15 Chloride IV 02/10/20 16:14 Q24H DASIA Protocol Lactated Ringer's 1,000 mls @ 112 mls/hr 01/26/20 16:47
[2020-01-26 13:02] LABS: Basophils % 0.3 % (0.1-2.0); Eosinophils # 0.2 K/mm3 (0.0-0.4); Eosinophils % 1.1 % (0.1-12.0); Hematocrit 30.3 % (37.0-47.0); Hemoglobin 9.9 g/dL (12.2-16.2); Lymphocytes # 2.8 K/mm3 (0.7-4.5); Lymphocytes % 20.1 % (10-50); Mean Corpuscular HGB Conc 32.7 g/dL (31.8-35.4); Mean Corpuscular Hemoglobin 36.2 pg (27.0-31.2); Mean Corpuscular Volume 110.7 fl (81-99); Mean Platelet Volume 10.2 fl (7.4-10.4); Monocytes # 0.6 K/mm3 (0.1-1.0); Monocytes % 4.2 % (1.7-9.3); Neutrophils # 10.2 K/mm3 (1.8-7.8); Neutrophils % 74.3 % (37.0-80.0); Platelet Count 141 K/mm3 (142-424); Red Blood Count 2.74 M/mm3 (4.20-5.40); Red Cell Distribution Width 13.3 % (11.5-17.5); White Blood Count 13.7 K/mm3 (4.8-10.8)
[2020-01-26 13:05] LABS: Chloride 106 mmol/L (98-107)
--- NOTE | 2020-01-26 13:05 | ECG_ITS ---
APPROVED REPORT Exam: Resting ECG HR:51 bpm ECG Measurements Heart Rate 51 AXES KS P 210 QRSd 74 QRS 45 QT 486 T 193 QTc 447 <Conclusion> Undetermined rhythm-Slow atrial fib vs. Junctional rhythm ST & T wave abnormality, consider inferior ischemia ST & T wave abnormality, consider anterolateral ischemia Abnormal ECG Electronically signed by : Naren Nice, 01/27/2020 07:40:26
[2020-01-26 13:06] LABS: Potassium 4.8 mmoL/L (3.5-5.1); Sodium 138 mmol/L (136-145)
[2020-01-26 13:08] LABS: Alanine Aminotransferase 16 U/L (12-78); Alkaline Phosphatase 64 U/L (38-126); Anion Gap 13.8 mEq/L (5-15); Aspartate Amino Transferase 22 U/L (14-36); Bilirubin,Total 0.3 mg/dl (0.2-1.3); Blood Urea Nitrogen 38 mg/dl (7-17); Carbon Dioxide 23 mmol/L (22.0-30.0); Creatinine Clearance Estimated 28 mL/min (50-200); Estimated Glomerular Filt Rate 26 ml/min (>60); GFR (African American) 31 ML/MIN (>60)
[2020-01-26 13:09] LABS: Albumin Level 3.3 g/dl (3.5-5.0); Calcium 8.8 mg/dl (8.4-10.2); Globulin 3.3 g/dL (1.3-3.2); Glucose 189 mg/dl (74-100); Total Protein,Serum 6.6 g/dl (6.3-8.2)
[2020-01-26 13:12] LABS: INR 1.02 (0.9-1.1); Prothrombin Time 11.3 seconds (9.4-11.8)
[2020-01-26 15:13] LABS: Microscopic, Urine URINE MICROSCOPIC (MICROSCOPIC)
[2020-01-26 15:14] LABS: Appearance,Urine CLEAR (Clear); Bilirubin,Urine Negative (Negative); Blood, Urine 1+ (Negative); Color,Urine YELLOW (Yellow); Glucose,Urine (UA) Negative (Negative); Ketones,Urine Negative (Negative); Leukocyte Esterase,Urine 2+ (Negative); Nitrate,Urine Negative (Negative); PH,Urine 5.5 (5.0-8.5); Protein,Urine 1+ (Negative); Urobilinogen,Urine 0.2 EU/dl (0.2)
[2020-01-26 15:37] LABS: Bacteria,Urine 1+ /lpf
--- NOTE | 2020-01-26 15:39 | PC.NURSE ---
SPEAKING TO DR ROGERS
[2020-01-26 16:34] LABS: Coronavirus 19 IgG Antibody Negative (Negative); Coronavirus 19 IgM Antibody Negative (Negative)
--- NOTE | 2020-01-26 16:39 | INFXCTL.NOTE ---
report called to floor
[2020-01-26 17:32] LABS: POC Glucose,Bedside 119 (70-110)
--- NOTE | 2020-01-26 18:46 | PC.NURSE ---
ALERT AND ORIENTED TO SELF AND PLACE. DINNER WAS REFUSED. PT HAS ATTEMPTED TO HIT STAFF DURING EVERY INTERACTION SINCE ADMISSION. LARGE PURPLE HEMATOMA TO RIGHT CHEST/BREAST AND SMALL OPEN AREA ABOVE COCCYX. PHOTO CONSENT OBTAINED FROM RINA WESLEY AND PICTURES ON CHART. VSS. NO DISTRESS NOTED. SAFETY MEASURES IN PLACE, WILL CONTINUE TO MONITOR
--- NOTE | 2020-01-26 19:07 | PC.NURSE ---
report given to randall
[2020-01-26 20:09] LABS: POC Glucose,Bedside 117 (70-110)
--- NOTE | 2020-01-26 22:19 | HMH.HP ---
*Admission Date: 01/26/20 *Chief complaint: weakness *History of present illness: this elderly pt was sent o ed per squad pt resident jann bradley de sent for eval due to bruising noted to rt breast and c/o pain. report from de no known injury. pt c/o pain with rt arm movement. pt with hx of confusion. pt alert awake oriented x 1. HPI narrative: 80-year-old female brought in by EMS with a history of dementia and CVA from senior living facility for pain and bruising to the right breast and chest wall. Report is that there has been no trauma or evidence of a fall recently. He does take Eliquis. Patient is unable communicate and provide further history at this time. Report is that this hematoma was first noticed today. 80-year-old female who presents with EMS from her senior living facility with a hematoma of the left chest wall on Eliquis. On exam there is a slight difference in appearance between the right and left shoulders will examine for possible dislocation or subluxation. No obvious deformity to the proximal humerus. Questionable for possible trauma despite being reported as negative. We will get a CT of the head and C-spine due to the history of being on Eliquis. Will also obtain a CT of the chest with contrast for possible extravasation into the right chest wall. Laboratory data including CBC, CMP, PT, PTT. Laboratory data was reviewed demonstrating elevated white blood cell count and urinalysis is suggestive of a urinary tract infection. Images for the shoulder x-ray were reviewed demonstrating no acute abnormalities. The CT however was concerning for a significantly sized hematoma to the right chest wall and breast. Hemoglobin is slightly decreased to 9.9 compared to previous records this is lower but she has a history of anemia. Due to urinary tract infection with an acute kidney injury with acute elevation in creatinine and BUN as well as this soft tissue hematoma patient will be admitted for trending of her hemoglobin and antibiotic therapy. She was started on Invanz IV and admitted to the [facility] service. [facility] History I have reviewed the patient's past medical history: Yes Medical History: Reports:: Arrhythmia, Atrial Fibrillation, Cancer, Chronic Obstructive Pulmonary Disease (COPD), Coronary Artery Disease, Cerebrovascular Accident, Depression, Diabetes Mellitus Type 2, Gastroesophageal Reflux Disease(GERD), Hyperlipidemia, Hypertension, Lung Disease, Renal Insufficiency Denies:: Diabetes Mellitus Type 1, Internal Pacemaker, MRSA, Seizures *Have you ever received a pneumonia vaccine?: Yes *Have you received a flu vaccine this season?: No Other Medical History: Reports: Anemia, Arthritis, Cataracts, Other Laterality Cases: Left: Breast Biopsy, Lumpectomy, Total Hip Replacement Other Surgeries: Yes: Cardiac Catheterization, Cholecystectomy, Coronary Stent, Hysterectomy-Total. No: Pacemaker Amputation: No Fractures: Yes - *Social History Last grade of school completed: High school graduate Smoking Status: Current every day smoker Tobacco Type: cigarettes # Packs/Day (cigarettes): 1 #Yrs smoked (if former smoker): 60 Alcohol Intake: never *Occupational Status:: disabled Housing: senior care Household Members: family *Travel in the last 8 weeks: None - Psychiatric History Pschychiatric History:: Reports:: Depression Family Hx:: Cancer, Coronary Artery Disease, Diabetes, Heart Attack, Hyperlipidemia Review of Systems - Review of Systems Review of systems:: unable to obtain Meds Home Medications Medication Instructions Recorded Confirmed Type Apixaban [Eliquis 2.5mg tab] 2.5 mg PO BID 09/15/17 01/26/20 History atenoloL [Atenolol 50mg Tab] 50 mg PO DAILY 09/15/17 01/26/20 History acetaminophen 500 mg capsule 1,000 mg PO Q6H PRN 10/05/17 01/26/20 History lactulose 10 gram/15 mL oral 30 g PO DAILYP PRN ml 10/05/17 01/26/20 History solution omeprazole 40 mg capsule,delayed 40 mg PO DAILY 10/05/17
[2020-01-26 23:18] LABS: POC Glucose,Bedside 125 (70-110)
[2020-01-27 04:00] VITALS: BP 137/71; PULSE 67; RESP 18; TEMP 36.6; O2SAT 100
--- NOTE | 2020-01-27 04:04 | PC.NURSE ---
Pt has rested well this shift. Has been turned Q2 hours. Pt has difficulty tolerating repositioning due to hematoma on (R) side of breast that continues to (R) side of back. Pt also doesn't tolerate when (R) arm is touched. She is very guarded and will grimace and scream out with either. Aged stage 2 to coccyx was noted with scant bleeding. DSG applied. See photos on chart. VS have remained stable. Pt remains on RA. Rhonchi noted to anterior bilateral lobes of lungs. BS active. Pt is incontinent of urine. Has had 2 wet briefs. Teds to BLE. Tolerating well. No other concerns at this time. Will continue to monitor.
[2020-01-27 05:00] VITALS: BMI 21.7
[2020-01-27 05:30] LABS: POC Glucose,Bedside 88 (70-110)
[2020-01-27 07:12] LABS: Basophils # 0.1 K/mm3 (0-0.2); Basophils % 0.6 % (0.1-2.0); Eosinophils # 0.3 K/mm3 (0.0-0.4); Eosinophils % 2.2 % (0.1-12.0); Hematocrit 30.5 % (37.0-47.0); Lymphocytes # 3.1 K/mm3 (0.7-4.5); Mean Corpuscular HGB Conc 32.8 g/dL (31.8-35.4); Mean Corpuscular Hemoglobin 36.4 pg (27.0-31.2); Mean Platelet Volume 9.8 fl (7.4-10.4); Monocytes # 0.6 K/mm3 (0.1-1.0); Neutrophils % 66.3 % (37.0-80.0); Platelet Count 110 K/mm3 (142-424); Red Blood Count 2.75 M/mm3 (4.20-5.40); Red Cell Distribution Width 13.1 % (11.5-17.5); White Blood Count 12.1 K/mm3 (4.8-10.8)
[2020-01-27 07:21] LABS: Chloride 108 mmol/L (98-107); Potassium 4.9 mmoL/L (3.5-5.1); Sodium 138 mmol/L (136-145)
[2020-01-27 07:24] LABS: Anion Gap 10.9 mEq/L (5-15); Blood Urea Nitrogen 35 mg/dl (7-17); Calcium 8.8 mg/dl (8.4-10.2); Carbon Dioxide 24 mmol/L (22.0-30.0); Creatinine Clearance Estimated 27 mL/min (50-200); Estimated Glomerular Filt Rate 31 ml/min (>60); GFR (African American) 38 ML/MIN (>60); Glucose 100 mg/dl (74-100)
[2020-01-27 08:00] VITALS: BP 160/80; PULSE 70; RESP 18; TEMP 36.4; O2SAT 99
--- NOTE | 2020-01-27 08:55 | HMH.ACPN2 ---
Internal Medicine - PN: Subj *Date: 01/28/20 *Time: 05:07 Interval history: tender rt breast area - more alert Exam Vital signs and Labs for Last 24 Hours: Temp Pulse Resp BP Pulse Ox 97.9 F 67 18 137/71 100 01/27/20 04:00 01/27/20 04:00 01/27/20 04:00 01/27/20 04:00 01/27/20 04:00 Laboratory Results - last 24 hr 01/26/20 12:55: WBC 13.7 H, RBC 2.74 L, Hgb 9.9 L, Hct 30.3 L, MCV 110.7 H, MCH 36.2 H, MCHC 32.7, RDW 13.3, Plt Count 141 L, MPV 10.2, Neut % (Auto) 74.3, Lymph % (Auto) 20.1, [place] % (Auto) 4.2, Eos % (Auto) 1.1, Baso % (Auto) 0.3, Neut # (Auto) 10.2 H, Lymph # (Auto) 2.8, [place] # (Auto) 0.6, Eos # (Auto) 0.2, Baso # (Auto) 0.0 01/26/20 12:55: Sodium 138, Potassium 4.8, Chloride 106, Carbon Dioxide 23, Anion Gap 13.8, BUN 38 H, Creatinine 1.90 H, Estimated Creat Clear 28, Estimated GFR 26 L, Est GFR ( Amer) 31 L, Glucose 189 H, Calcium 8.8, Total Bilirubin 0.3, AST 22, ALT 16, Alkaline Phosphatase 64, Total Protein 6.6, Albumin 3.3 L, Globulin 3.3 H, Albumin/Globulin Ratio 1.0 L 01/26/20 12:55: PT 11.3, INR 1.02 01/26/20 12:55: SARS-CoV-2 IgG Ab (Rapid) Negative, SARS-CoV-2 IgM Ab (Rapid) Negative 01/26/20 15:08: Urine Color Yellow, Urine Appearance Clear, Urine pH 5.5, Ur Specific [place] 1.020, Urine Protein 1+, Urine Glucose (UA) Negative, Urine Ketones Negative, Urine Blood 1+, Urine Nitrate Negative, Urine Bilirubin Negative, Urine Urobilinogen 0.2, Ur Leukocyte Esterase 2+ A, Urine RBC 5-10, Urine WBC 10-20, Ur Squamous Epith Cells 3-5, Urine Bacteria 1+ 01/26/20 17:20: POC Glucose 119 H 01/26/20 19:53: POC Glucose 117 H 01/26/20 23:11: POC Glucose 125 H 01/27/20 05:21: POC Glucose 88 01/27/20 06:42: WBC 12.1 H, RBC 2.75 L, Hgb 10.0 L, Hct 30.5 L, MCV 111.0 H, MCH 36.4 H, MCHC 32.8, RDW 13.1, Plt Count 110 L, MPV 9.8, Neut % (Auto) 66.3, Lymph % (Auto) 26.0, [place] % (Auto) 5.0, Eos % (Auto) 2.2, Baso % (Auto) 0.6, Neut # (Auto) 8.0 H, Lymph # (Auto) 3.1, [place] # (Auto) 0.6, Eos # (Auto) 0.3, Baso # (Auto) 0.1 01/27/20 06:42: Sodium 138, Potassium 4.9, Chloride 108 H, Carbon Dioxide 24, Anion Gap 10.9, BUN 35 H, Creatinine 1.60 H, Estimated Creat Clear 27, Estimated GFR 31 L, Est GFR ( Amer) 38 L D, Glucose 100 D, Calcium 8.8 I & O for Last 24 hours: Intake & Output 01/24/20 01/25/20 01/26/20 01/27/20 11:59 11:59 11:59 11:59 Intake Total 0 / 0 Balance 0 / 0 Weight 130 lb 9.6 oz - Constitutional no acute distress - *Routine HEENT Exam Head: Present: normocephalic Eye: Present: EOMI, PERRL ENT: Present: mucous membranes dry - *Routine Neck Exam Present: supple - Routine Chest/Breast/Axilla Exam Chest wall: Present: tenderness Breast: Present: tenderness Comments: hematoma - *Routine Respiratory Exam Present: decreased breath sounds - *Routine Cardiovascular Exam Present: RRR - *Routine Abdominal Exam Present: soft - *Routine Extremities Exam Absent: calf tenderness - *Routine Skin Exam Present: intact - *Routine Neurological Exam Present: alert, CN II-XII intact - Routine Psychiatric Exam Present: unable to assess Assessment and Plan (1) Acute kidney injury superimposed on chronic kidney disease Status: Acute Category: Medical Code(s): N17.9 - Acute kidney failure, unspecified; N18.9 - Chronic kidney disease, unspecified (2) Hematoma, chest wall Status: Acute Qualifiers: Encounter type: initial encounter Laterality: right Qualified Code(s): S20.211A - Contusion of right front wall of thorax, initial encounter Category: Medical Code(s): S20.219A - Contusion of unspecified front wall of thorax, initial encounter (3) UTI (urinary tract infection) Status: Acute Qualifiers: Urinary tract infection type: acute cystitis Hematuria presence: without hematuria Qualified Code(s): N30.00 - Acute cystitis without hematuria Category: Medical Code(s): N39.0 - Urinary tract infection, site not specified (4
[2020-01-27 11:24] LABS: POC Glucose,Bedside 99 (70-110)
--- NOTE | 2020-01-27 11:51 | P.CONPHA_ITS ---
[facility] Pharmacy VTE Monitoring - Patient Demographics Admission date: 01/27/20 Report Date: 01/27/20 Time: 11:51 Allergies/Adverse Reactions: Patient Allergies cephalexin [CEPHALEXIN] Allergy (Mild, Verified 01/27/20 08:19) Unknown allergy reaction metformin [METFORMIN] Allergy (Mild, Verified 01/27/20 08:19) Unknown allergy reaction Sulfa (Sulfonamide Antibiotics) [SULFA (SULFONAMIDE ANTIBIOTICS)] Allergy (Mild, Verified 01/27/20 08:19) Unknown allergy reaction atorvastatin [From Lipitor] Allergy (Unknown, Verified 01/27/20 08:19) Unknown allergy reaction Height: 1.65 m Weight: 59.239 kg Patient Problems: Current Active Problems UTI (urinary tract infection) (Acute) Hematoma, chest wall (Acute) Acute kidney injury superimposed on chronic kidney disease (Acute) Cervical spondylosis (Acute) Cerebral atrophy (Acute) Anemia (Chronic) CVA, old, cognitive deficits (Chronic) - VTE Risk Labs: VTE Related Lab Results Hgb 10.0 g/dL (12.2-16.2) L 01/27/20 06:42 Hct 30.5 % (37.0-47.0) L 01/27/20 06:42 Plt Count 110 K/mm3 (142-424) L 01/27/20 06:42 PT 11.3 seconds (9.4-11.8) 01/26/20 12:55 INR 1.02 (0.9-1.1) 01/26/20 12:55 BUN 35 mg/dl (7-17) H 01/27/20 06:42 Creatinine 1.60 mg/dl (0.52-1.04) H 01/27/20 06:42 Estimated Creat Clear 27 mL/min (50-200) 01/27/20 06:42 Was VTE Risk Assessment Performed: Yes VTE Score: 5 VTE Risk Level: Low Risk - Prophylaxis Types of VTE Prophylaxis: TEDS Knee High (DAREK HOSE ORDER PLACED) Location of Applied Device: Bilateral Lower Extremeties
--- NOTE | 2020-01-27 15:37 | PC.NURSE ---
Pt has been pleasant and cooperative this shift. A&O to person and birthday. No complaints of pain. Pt reports feeling sleepy and has slept intermittently throughout the shift. Pt has been turned Q2H this shift. Large hematoma to RT chest/rib cage area. Stage 2 noted to coccyx with Alleviant dressing in place. No edema noted. DAREK hose in place to BLE. Pt is incontinent of bowel and bladder, although no BM thus far this shift. Lung sounds reveal expiratory rhonchi. FSBS results have been 99 and 105, neither of which have required insulin coverage per sliding scale. 20 G peripheral IV in the LT AC is patent and infusing LR @ 112 ML/HR. VSS. Pt is on room air with sats. >95%. Call light within reach. Bed safety alarm in place. Will continue to monitor.
[2020-01-27 15:42] LABS: POC Glucose,Bedside 105 (70-110)
[2020-01-27 15:58] VITALS: BP 107/44; PULSE 59; RESP 16; TEMP 36.8; O2SAT 98
[2020-01-27 20:00] VITALS: O2SAT 95
[2020-01-27 20:23] VITALS: BP 118/56; PULSE 62; RESP 20; TEMP 36.6; O2SAT 95
[2020-01-27 20:50] LABS: POC Glucose,Bedside 114 (70-110)
[2020-01-28] VITALS (25 sets, daily range): BP systolic 105–143; BP diastolic 40–69; PULSE 46–71; RESP 12–21; TEMP 35.9–36.7; O2SAT 92–99; BMI 22.2
--- NOTE | 2020-01-28 04:39 | INFXCTL.NOTE ---
ALERT AND ORIENTED TO SELF. PT HAS RESTED WELL THIS SHIFT. NO COMPLAINTS OF PAIN. LUNGS CTA. ABDOMEN IS SOFT, AND NON-TENDER WITH ACTIVE BS IN ALL QUADS. 2 BM THIS SHIFT AND VOIDS STRONG DARK YELLOW URINE VIA BRIEF. PT HAS BEEN TURNED Q2 AND DRESSING ON COCCYX REPLACED, CDI. NO DISTRESS NOTED, VSS, WILL CONTINUE TO MONITOR
[2020-01-28 05:50] LABS: POC Glucose,Bedside 95 (70-110)
[2020-01-28 07:25] LABS: Basophils % 0.3 % (0.1-2.0); Eosinophils # 0.3 K/mm3 (0.0-0.4); Eosinophils % 2.2 % (0.1-12.0); Lymphocytes % 26.1 % (10-50); Mean Corpuscular HGB Conc 34.6 g/dL (31.8-35.4); Mean Corpuscular Hemoglobin 36.7 pg (27.0-31.2); Mean Corpuscular Volume 106.2 fl (81-99); Mean Platelet Volume 11.5 fl (7.4-10.4); Monocytes # 0.6 K/mm3 (0.1-1.0); Monocytes % 5.6 % (1.7-9.3); Neutrophils # 7.5 K/mm3 (1.8-7.8); Neutrophils % 65.8 % (37.0-80.0); Platelet Count 115 K/mm3 (142-424); Red Blood Count 2.25 M/mm3 (4.20-5.40); Red Cell Distribution Width 13.3 % (11.5-17.5); White Blood Count 11.4 K/mm3 (4.8-10.8)
[2020-01-28 07:31] LABS: Hematocrit 23.9 % (37.0-47.0)
[2020-01-28 07:35] LABS: Hemoglobin 8.3 g/dL (12.2-16.2)
[2020-01-28 07:45] LABS: Chloride 109 mmol/L (98-107)
[2020-01-28 07:46] LABS: Potassium 5.2 mmoL/L (3.5-5.1); Sodium 137 mmol/L (136-145)
[2020-01-28 07:49] LABS: Anion Gap 11.2 mEq/L (5-15); Blood Urea Nitrogen 32 mg/dl (7-17); Calcium 8.6 mg/dl (8.4-10.2); Carbon Dioxide 22 mmol/L (22.0-30.0); Creatinine Clearance Estimated 31 mL/min (50-200); Estimated Glomerular Filt Rate 36 ml/min (>60); GFR (African American) 44 ML/MIN (>60); Glucose 94 mg/dl (74-100)
--- NOTE | 2020-01-28 08:44 | HMH.ACPN2 ---
Internal Medicine - PN: Subj *Date: 01/29/20 *Time: 03:31 Interval history: low hgb will transfuse - no fever and neg urine culture Exam Vital signs and Labs for Last 24 Hours: Temp Pulse Resp BP Pulse Ox 98.1 F 71 21 143/69 H 98 01/28/20 08:00 01/28/20 08:00 01/28/20 08:00 01/28/20 08:00 01/28/20 08:00 Laboratory Results - last 24 hr 01/27/20 11:15: POC Glucose 99 01/27/20 15:34: POC Glucose 105 01/27/20 20:39: POC Glucose 114 H 01/28/20 05:40: POC Glucose 95 01/28/20 06:21: WBC 11.4 H, RBC 2.25 L, Hgb 8.3 L D, Hct 23.9 L*, MCV 106.2 H, MCH 36.7 H, MCHC 34.6, RDW 13.3, Plt Count 115 L, MPV 11.5 H, Neut % (Auto) 65.8, Lymph % (Auto) 26.1, [place] % (Auto) 5.6, Eos % (Auto) 2.2, Baso % (Auto) 0.3, Neut # (Auto) 7.5, Lymph # (Auto) 3.0, [place] # (Auto) 0.6, Eos # (Auto) 0.3, Baso # (Auto) 0.0 01/28/20 06:21: Sodium 137, Potassium 5.2 H, Chloride 109 H, Carbon Dioxide 22, Anion Gap 11.2, BUN 32 H, Creatinine 1.40 H, Estimated Creat Clear 31, Estimated GFR 36 L, Est GFR ( Amer) 44 L, Glucose 94, Calcium 8.6 I & O for Last 24 hours: Intake & Output 01/25/20 01/26/20 01/27/20 01/28/20 11:59 11:59 11:59 11:59 Intake Total 120 / 120 3003 / 3003 Output Total 3 / 3 Balance 120 / 120 3000 / 3000 Weight 130 lb 9.6 oz 133 lb 9 oz Microbiology Reports for the Last 24 Hours: Microbiology 01/26/20 15:08 Urine,Clean Catch Urine Culture - Preliminary NO GROWTH AFTER 24 HOURS - Constitutional no acute distress - *Routine HEENT Exam Head: Present: normocephalic Eye: Present: EOMI, PERRL ENT: Present: mucous membranes dry - *Routine Neck Exam Absent: JVD - *Routine Respiratory Exam Present: decreased breath sounds - *Routine Cardiovascular Exam Present: RRR - *Routine Abdominal Exam Present: soft - *Routine Extremities Exam Absent: calf tenderness - *Routine Skin Exam Comments: lt chest hematoma - no bigger - *Routine Neurological Exam Present: CN II-XII intact. Absent: motor deficit - Routine Psychiatric Exam Present: unable to assess Assessment and Plan (1) Acute kidney injury superimposed on chronic kidney disease Status: Acute Category: Medical Code(s): N17.9 - Acute kidney failure, unspecified; N18.9 - Chronic kidney disease, unspecified (2) Hematoma, chest wall Status: Acute Qualifiers: Encounter type: initial encounter Laterality: right Qualified Code(s): S20.211A - Contusion of right front wall of thorax, initial encounter Category: Medical Code(s): S20.219A - Contusion of unspecified front wall of thorax, initial encounter (3) UTI (urinary tract infection) Status: Acute Qualifiers: Urinary tract infection type: acute cystitis Hematuria presence: without hematuria Qualified Code(s): N30.00 - Acute cystitis without hematuria Category: Medical Code(s): N39.0 - Urinary tract infection, site not specified (4) Anemia Status: Chronic Qualifiers: Anemia type: due to chronic kidney disease Chronic kidney disease stage: unspecified stage Qualified Code(s): N18.9 - Chronic kidney disease, unspecified; D63.1 - Anemia in chronic kidney disease Category: Medical Code(s): D64.9 - Anemia, unspecified (5) CVA, old, cognitive deficits Status: Chronic Category: Medical Code(s): I69.319 - Unspecified symptoms and signs involving cognitive functions following cerebral infarction (6) Cervical spondylosis Status: Acute Category: Medical Code(s): M47.812 - Spondylosis without myelopathy or radiculopathy, cervical region (7) Cerebral atrophy Status: Acute Category: Medical Code(s): G31.9 - Degenerative disease of nervous system, unspecified
--- NOTE | 2020-01-28 10:12 | PC.NURSE ---
Contacted Stacie Watt (Daughter/POA) this AM at approximately 0850 regarding consent for 2 units of PRBC's to be transfused. Mrs. Watt stated that she would give a call back for telephone consent. Received notification from lab that blood products were ready at approximately 1005. Currently awaiting return phone call from Mrs. Watt. Will begin transfusion as soon as consent is obtained.
--- NOTE | 2020-01-28 10:46 | PC.NURSE ---
Received a return phone call from Mrs. Watt regarding consent for blood transfusion. Verbal consent was obtained and verified with Babatunde Eldridge RN.
[2020-01-28 11:37] LABS: POC Glucose,Bedside 99 (70-110)
[2020-01-28 17:07] LABS: POC Glucose,Bedside 104 (70-110)
--- NOTE | 2020-01-28 17:55 | PC.NURSE ---
Pt has been pleasant and cooperative this shift. A&O to person and birthday. No complaints of pain. Pt has slept intermittently this shift. Pt has been turned Q2H this shift. Large hematoma to RT chest/rib cage area. Stage 2 noted to coccyx with Allevyn dressing in place. No edema noted. DAREK hose in place to BLE. Pt is incontinent of bowel and bladder, although no BM thus far this shift. Lung sounds reveal expiratory wheezing. FSBS results have been 99 and 104, neither of which have required insulin coverage per sliding scale. 20 G peripheral IV in the LT AC was DC'd this shift. A new 20 G peripheral IV was inserted in the LT upper arm. LR is infusing @ 112 ML/HR. VSS. Pt is on room air with sats. >95%. Call light within reach. Bed safety alarm in place. Will continue to monitor.
[2020-01-28 19:17] LABS: Hematocrit 33.4 % (37.0-47.0)
[2020-01-28 21:31] LABS: POC Glucose,Bedside 113 (70-110)
[2020-01-29 04:28] VITALS: BP 150/75; PULSE 73; RESP 22; TEMP 36.4; O2SAT 98
[2020-01-29 05:32] VITALS: BMI 22.6
[2020-01-29 06:00] LABS: POC Glucose,Bedside 100 (70-110)
[2020-01-29 07:21] LABS: Chloride 107 mmol/L (98-107); Sodium 138 mmol/L (136-145)
[2020-01-29 07:22] LABS: Potassium 4.5 mmoL/L (3.5-5.1)
[2020-01-29 07:24] LABS: Blood Urea Nitrogen 27 mg/dl (7-17); Creatinine Clearance Estimated 34 mL/min (50-200); Estimated Glomerular Filt Rate 40 ml/min (>60); GFR (African American) 48 ML/MIN (>60)
[2020-01-29 07:25] LABS: Anion Gap 10.5 mEq/L (5-15); Calcium 8.9 mg/dl (8.4-10.2); Carbon Dioxide 25 mmol/L (22.0-30.0); Glucose 103 mg/dl (74-100)
[2020-01-29 07:26] LABS: Basophils # 0.1 K/mm3 (0-0.2); Basophils % 0.4 % (0.1-2.0); Eosinophils # 0.3 K/mm3 (0.0-0.4); Eosinophils % 2.4 % (0.1-12.0); Hematocrit 36.8 % (37.0-47.0); Lymphocytes # 2.7 K/mm3 (0.7-4.5); Lymphocytes % 22.6 % (10-50); Mean Corpuscular HGB Conc 33.2 g/dL (31.8-35.4); Mean Corpuscular Hemoglobin 34.5 pg (27.0-31.2); Mean Corpuscular Volume 103.8 fl (81-99); Mean Platelet Volume 11.1 fl (7.4-10.4); Monocytes # 0.5 K/mm3 (0.1-1.0); Monocytes % 4.1 % (1.7-9.3); Neutrophils # 8.5 K/mm3 (1.8-7.8); Neutrophils % 70.6 % (37.0-80.0); Platelet Count 90 K/mm3 (142-424); Red Blood Count 3.54 M/mm3 (4.20-5.40); White Blood Count 12.1 K/mm3 (4.8-10.8)
[2020-01-29 07:51] LABS: Troponin I < 0.01 ng/ml (0.00-0.034)
[2020-01-29 08:00] VITALS: BP 144/74; PULSE 78; RESP 20; TEMP 36.5; O2SAT 90
[2020-01-29 08:06] LABS: Hemoglobin 12.3 g/dL (12.2-16.2)
--- NOTE | 2020-01-29 09:16 | HMH.DCSUM ---
General - General Admission date:: 01/26/20 Discharge date: 01/29/20 HPI HPI: this elderly pt was sent o ed per squad pt resident jann bradley ar sent for eval due to bruising noted to rt breast and c/o pain. report from ar no known injury. pt c/o pain with rt arm movement. pt with hx of confusion. pt alert awake oriented x 1. HPI narrative: 80-year-old female brought in by EMS with a history of dementia and CVA from residential facility for pain and bruising to the right breast and chest wall. Report is that there has been no trauma or evidence of a fall recently. He does take Eliquis. Patient is unable communicate and provide further history at this time. Report is that this hematoma was first noticed today. 80-year-old female who presents with EMS from her residential facility with a hematoma of the left chest wall on Eliquis. On exam there is a slight difference in appearance between the right and left shoulders will examine for possible dislocation or subluxation. No obvious deformity to the proximal humerus. Questionable for possible trauma despite being reported as negative. We will get a CT of the head and C-spine due to the history of being on Eliquis. Will also obtain a CT of the chest with contrast for possible extravasation into the right chest wall. Laboratory data including CBC, CMP, PT, PTT. Laboratory data was reviewed demonstrating elevated white blood cell count and urinalysis is suggestive of a urinary tract infection. Images for the shoulder x-ray were reviewed demonstrating no acute abnormalities. The CT however was concerning for a significantly sized hematoma to the right chest wall and breast. Hemoglobin is slightly decreased to 9.9 compared to previous records this is lower but she has a history of anemia. Due to urinary tract infection with an acute kidney injury with acute elevation in creatinine and BUN as well as this soft tissue hematoma patient will be admitted for trending of her hemoglobin and antibiotic therapy. She was started on Invanz IV and admitted to the [facility] service. Hospital Course Hospital Course: Laboratory Tests 01/26/20 01/26/20 01/26/20 12:55 12:55 12:55 WBC 13.7 H RBC 2.74 L Hgb 9.9 L Hct 30.3 L MCV 110.7 H MCH 36.2 H MCHC 32.7 RDW 13.3 Plt Count 141 L MPV 10.2 Neut % (Auto) 74.3 Lymph % (Auto) 20.1 [place] % (Auto) 4.2 Eos % (Auto) 1.1 Baso % (Auto) 0.3 Neut # (Auto) 10.2 H Lymph # (Auto) 2.8 [place] # (Auto) 0.6 Eos # (Auto) 0.2 Baso # (Auto) 0.0 PT 11.3 INR 1.02 Sodium 138 Potassium 4.8 Chloride 106 Carbon Dioxide 23 Anion Gap 13.8 BUN 38 H Creatinine 1.90 H Estimated Creat Clear 28 Estimated GFR 26 L Est GFR ( Amer) 31 L Glucose 189 H POC Glucose Calcium 8.8 Total Bilirubin 0.3 AST 22 ALT 16 Alkaline Phosphatase 64 Troponin I Total Protein 6.6 Albumin 3.3 L Globulin 3.3 H Albumin/Globulin Ratio 1.0 L Urine Color Urine Appearance Urine pH Ur Specific [place] Urine Protein Urine Glucose (UA) Urine Ketones Urine Blood Urine Nitrate Urine Bilirubin Urine Urobilinogen Ur Leukocyte Esterase Urine RBC Urine WBC Ur Squamous Epith Cells Urine Bacteria SARS-CoV-2 IgG Ab (Rapid) SARS-CoV-2 IgM Ab (Rapid) Blood Type Antibody Screen Crossmatch (AHG) 01/26/20 01/26/20 01/26/20 12:55 15:08 17:20 WBC RBC Hgb Hct MCV MCH MCHC RDW Plt Count MPV Neut % (Auto) Lymph % (Auto) [place] % (Auto) Eos % (Auto) Baso % (Auto) Neut # (Auto) Lymph # (Auto) [place] # (Auto) Eos # (Auto) Baso # (Auto) PT INR Sodium Potassium Chloride Carbon Dioxide Anion Gap BUN Creatinine Estimated Creat Clear Estimated GFR Est GFR ( Amer) Gl
--- NOTE | 2020-01-29 10:48 | SW/DCPLANNER ---
Addendum entered by Krissy Whitmore 01/29/20 14:12: NEGATIVE COVID results have been faxed to Guera at [facility] and nurse is aware (Adriane Zayas). Original Note: This patient currently resides at [facility]. I have spoke with Guera and she has confirmed that patient will return under SNF level of care. Updated patient information has been faxed to Guera. COVID swab has been ordered and if results are negative patient will discharge back to [facility] today.
[2020-01-29 12:50] LABS: POC Glucose,Bedside 99 (70-110)
[2020-01-29 14:21] VITALS: PULSE 85; PULSE 86
--- NOTE | 2020-01-29 14:22 | PC.NURSE ---
Albuterol given RR 18 bpm, SPO2 94% on Room Air. Tolerated tx well
--- OUTSIDE RECORDS SUMMARY | 2020-01-30 11:38 | XMS_ITS | Continuity of Care Document ---
:1940 Author Organization [facility] Address [address] [place] [address] Phone Care Team Providers Name Role Phone Ford Kear[place] Attending Provider Derick Hughes Primary Care Provider [place] Primary Care Provider [place] Attending Provider Derick Hughes Attending Provider Allergies, Adverse Reactions, Alerts Allergen Type Severity Reaction Last Verified Status Updated cephalexin Allergy Mild Unknown January Yes Active allergy 2019 reaction 8:19am metformin Allergy Mild Unknown January Yes Active allergy 2019 reaction 8:19am Sulfa Allergy Mild Unknown January Yes Active (Sulfonamide allergy 2019 Antibiotics) reaction 8:19am atorvastatin Allergy Unknown Unknown January Yes A
== END 2020-01-29 15:00 ==
LOC: ER 16:04 → 2ND 16:21
PROVIDERS: Admitting Provider Emergency Medicine; Emergency Provider Student in an Organized Health Care Education/Training Program; PCP Emergency Medicine; Visit Provider Emergency Medicine
DX: N39.0 Urinary tract infection, site not specified (principal); N17.9 Acute kidney failure, unspecified; N18.9 Chronic kidney disease, unspecified; I13.0 Hypertensive heart and chronic kidney disease with heart failure and stage 1 through stage 4 chronic kidney disease, or unspecified chronic kidney disease; D63.1 Anemia in chronic kidney disease; I48.91 Unspecified atrial fibrillation; S20.211A Contusion of right front wall of thorax, initial encounter; J44.9 Chronic obstructive pulmonary disease, unspecified; Z79.01 Long term (current) use of anticoagulants; Z79.899 Other long term (current) drug therapy; Z88.2 Allergy status to sulfonamides; Z88.8 Allergy status to other drugs, medicaments and biological substances; I69.319 Unspecified symptoms and signs involving cognitive functions following cerebral infarction; Z91.81 History of falling; G31.9 Degenerative disease of nervous system, unspecified; Z85.3 Personal history of malignant neoplasm of breast; W19.XXXA Unspecified fall, initial encounter; Y92.129 Unspecified place in nursing home as the place of occurrence of the external cause; Z79.810 Long term (current) use of selective estrogen receptor modulators (SERMs); R50.9 Fever, unspecified
CPT/HCPCS: 36415; 70450; 71250; 72125; 73030; 80048; 80053; 81001; 82962; 84484; 85014; 85018; 85025; 85610; 86328; 86850; 87086; 93005; 94640; 96365; 99284; G0378; J1335; P9016; U0003

== ENCOUNTER 2020-11-05 21:50 | Inpatient (IN) | payer MEDICARE, OTHER, MEDICAID, SELFPAY ==
--- NOTE | 2020-11-05 21:50 | ECG_ITS ---
APPROVED REPORT Exam: Resting ECG HR:72 bpm ECG Measurements Heart Rate 72 AXES OR 170 P QRSd 78 QRS 60 QT 412 T 97 QTc 451 Conclusion Normal sinus rhythm ST & T wave abnormality, consider anterolateral ischemia Abnormal ECG Electronically signed by : Jean Solorio, 11/06/2020 21:37:05
[2020-11-05 21:52] VITALS: BP 192/70; PULSE 74; RESP 16; TEMP 37.7; O2SAT 100; BMI 27.4
--- NOTE | 2020-11-05 22:09 | CT_ITS ---
PROCEDURE INFORMATION: Exam: CT Head Without Contrast Exam date and time: 11/05/2020 10:09 PM Age: 80 years old Clinical indication: Alteration of consciousness and weakness, facial; Transient alteration of awareness; Patient HX: AMS, decreased loc, left facial droop; Additional info: Decreased loc with left facial droop TECHNIQUE: Imaging protocol: Computed tomography of the head without contrast. 3D rendering (Not supervised by radiologist): MIP and/or 3D reconstructed images were created by the technologist. Radiation optimization: All CT scans at this facility use at least one of these dose optimization techniques: automated exposure control; mA and/or kV adjustment per patient size (includes targeted exams where dose is matched to clinical indication); or iterative reconstruction. COMPARISON: CT HEAD/BRAIN WO CON 01/26/2020 2:35 PM FINDINGS: Brain: Moderate periventricular white matter disease is nonspecific, but most likely due to chronic small vessel ischemia. Findings are similar to prior. Cerebral ventricles: Mild ventricular dilatation similar to prior. Paranasal sinuses: Visualized sinuses are unremarkable. No fluid levels. Mastoid air cells: Visualized mastoid air cells are well aerated. Bones/joints: Unremarkable. No acute fracture. Soft tissues: Unremarkable. IMPRESSION: No acute intracranial pathology
--- NOTE | 2020-11-05 22:11 | XR_ITS ---
PROCEDURE INFORMATION: Exam: XR Chest Exam date and time: 11/05/2020 10:11 PM Age: 80 years old Clinical indication: Other: Decreased loc , left facial droop; Patient HX: Decreased loc , left facial droop; Additional info: Decrased loc TECHNIQUE: Imaging protocol: XR of the chest. Views: 4 or more views. COMPARISON: CT CHEST WO CON 01/26/2020 2:40 PM FINDINGS: Lungs: Unremarkable. No consolidation. Pleural spaces: Unremarkable. No pleural effusion. No pneumothorax. Heart/Mediastinum: Unremarkable. No cardiomegaly. Bones/joints: Unremarkable. Soft tissues: Incidental note of surgical clips in the soft tissues of the left axilla and breast. IMPRESSION: No acute cardiopulmonary disease.
[2020-11-05 22:19] LABS: Microscopic, Urine URINE MICROSCOPIC (MICROSCOPIC)
[2020-11-05 22:21] LABS: Coronavirus 19, PCR Not Detected (NotDetected); Influenza A, PCR Not Detected (NotDetected); Influenza B, PCR Not Detected (NotDetected)
[2020-11-05 23:02] VITALS: BP 165/81; RESP 15
[2020-11-05 23:05] LABS: Appearance,Urine CLEAR (Clear); Bilirubin,Urine Negative (Negative); Blood, Urine 2+ (Negative); Color,Urine YELLOW (Yellow); Glucose,Urine (UA) Negative (Negative); Ketones,Urine Negative (Negative); Leukocyte Esterase,Urine 3+ (Negative); Nitrate,Urine Negative (Negative); Protein,Urine 1+ (Negative); Specific Gravity, Urine 1.015 (1.005-1.030); Urobilinogen,Urine 0.2 EU/dl (0.2)
--- NOTE | 2020-11-05 23:05 | HMH.EDAMS ---
ED Disposition Clinical Impression: Acute delirium, Renal insufficiency UTI (urinary tract infection) Qualifiers: Urinary tract infection type: site unspecified Hematuria presence: without hematuria Qualified Code(s): N39.0 - Urinary tract infection, site not specified Disposition: Admitted As Inpatient Condition on Discharge: Fair Instructions: DI for Altered Mental Status Referrals: Wiliam Hughes MD [Primary Care Provider] - - Critical Care Critical Care Time: No Attestation: On 11/05/20, the high probability of a clinically significant, sudden or life threatening deterioration of the following system(s) required my full and direct attention, intervention and personal management. The time I documented below is in addition to time spent performing reported procedures but includes the following listed in this critical care notation. Medical Decision Making - Medical Records Medical records reviewed: Yes: I reviewed the patient's medical records. - Joss Inquiry Pt receiving controlled substance: No Vital Signs: 11/05/20 21:52 11/05/20 23:02 Temperature 99.8 F H Temperature Source Rectal Pulse Rate [Right] 74 Respiratory Rate 16 15 Blood Pressure 165/81 H Blood Pressure [Right Arm] 192/70 H Blood Pressure Mean [Right Arm] 110 Blood Pressure Source [Right Arm] Automatic Cuff Blood Pressure Position [Right Arm] Supine 02 Sat by Pulse Oximetry 100 Oxygen Delivery Method Room Air - Lab Data Lab results reviewed: Yes: I reviewed the patient's lab results. Lab Results 11/05/20 21:55: Urine Color Yellow, Urine Appearance Clear, Urine pH 6.0, Ur Specific [place] 1.015, Urine Protein 1+, Urine Glucose (UA) Negative, Urine Ketones Negative, Urine Blood 2+, Urine Nitrate Negative, Urine Bilirubin Negative, Urine Urobilinogen 0.2, Ur Leukocyte Esterase 3+ A, Urine RBC Tntc, Urine WBC Tntc, Ur Squamous Epith Cells Occasional, Urine Bacteria 2+ 11/05/20 22:19: SARS-CoV-2 (PCR) Not detected, Influenza A Untype (PCR) Not detected, Influenza Type B (PCR) Not detected 11/06/20 00:14: Lactate 1.5 11/06/20 00:29: WBC 10.4, RBC 3.33 L, Hgb 11.0 L, Hct 36.2 L, MCV 108.5 H, MCH 33.1 H, MCHC 30.5 L, RDW 12.9, Plt Count 139 L, MPV 9.6, Neut % (Auto) 66.3, Lymph % (Auto) 23.7, [place] % (Auto) 5.2, Eos % (Auto) 4.3, Baso % (Auto) 0.4, Neut # (Auto) 6.9, Lymph # (Auto) 2.5, [place] # (Auto) 0.5, Eos # (Auto) 0.5 H, Baso # (Auto) 0.1 11/06/20 00:29: Sodium 142, Potassium 5.2 H, Chloride 112 H, Carbon Dioxide 20 L, Anion Gap 15.2 H, BUN 33 H, Creatinine 1.80 H, Estimated Creat Clear 30, Estimated GFR 27 L, Est GFR ( Amer) 33 L, Glucose 167 H, Calcium 8.7, Total Bilirubin 0.3, AST 24, ALT 17, Alkaline Phosphatase 104, Total Protein 7.7, Albumin 3.9, Globulin 3.8 H, Albumin/Globulin Ratio 1.0 L Result diagrams: 11/06/20 00:29 11/06/20 00:29 Orders (Tests/Meds): ED MEDICATIONS Generic Name Dose Route Start Last Admin Trade Name Freq PRN Reason Stop Dose Admin Sodium Chloride 1,000 mls @ 999 mls/hr 11/05/20 22:15 11/06/20 01:11 Sod Chlor 0.9% 1000ml Bag IV 11/05/20 23:15 999 mls/hr .Q1H1M DASIA Administration Ceftriaxone Sodium 1 gm/ 50 mls @ 100 mls/hr 11/06/20 00:15 11/06/20 01:12 Sodium Chloride IV 11/20/20 00:14 100 mls/hr Q24H DASIA Administration Protocol ORDERS Category Date Time Status C-Reactive Protein Stat Lab 11/05/20 22:09 Results Complete Blood Count Auto Diff Stat Lab 11/05/20 22:09 Results Comprehensive Metabolic Panel Stat Lab 11/05/20 22:09 Results Erythrocyte Sedimentation Rate Stat Lab 11/05/20 22:09 Results Procalcitonin Stat Lab 11/05/20 22:09 Results Blood Culture Stat Micro 11/06/20 00:14 Received Urine Culture Stat Micro 11/05/20 21:55 Received - Radiology Data #1 Image(s): Chest Image Reviewed: Yes I reviewed the patient's radiology image Preliminary Findings: Normal/NAD - ECG Data Tracing #1 Normal Sinus Rhythm: Yes Floyd
[2020-11-05 23:41] LABS: Bacteria,Urine 2+ /lpf; RBC,Urine TNTC #/hpf (0-3); Squamous Epithelial Cell,Urine Occasional #/hpf (0-5); WBC,Urine TNTC #/hpf (0-3)
[2020-11-06] VITALS (13 sets, daily range): BP systolic 105–158; BP diastolic 54–85; PULSE 73–83; RESP 16–23; TEMP 36.7–37.1; O2SAT 95–97; BMI 22.3; BMI 22.4
[2020-11-06 00:29] LABS: Lactic Acid 1.5 mmol/L (0.7-2.1)
[2020-11-06 00:37] LABS: Basophils # 0.1 K/mm3 (0-0.2); Basophils % 0.4 % (0.1-2.0); Eosinophils # 0.5 K/mm3 (0.0-0.4); Eosinophils % 4.3 % (0.1-12.0); Hematocrit 36.2 % (37.0-47.0); Lymphocytes # 2.5 K/mm3 (0.7-4.5); Lymphocytes % 23.7 % (10-50); Mean Corpuscular HGB Conc 30.5 g/dL (31.8-35.4); Mean Corpuscular Hemoglobin 33.1 pg (27.0-31.2); Mean Corpuscular Volume 108.5 fl (81-99); Mean Platelet Volume 9.6 fl (7.4-10.4); Monocytes # 0.5 K/mm3 (0.1-1.0); Monocytes % 5.2 % (1.7-9.3); Neutrophils # 6.9 K/mm3 (1.8-7.8); Neutrophils % 66.3 % (37.0-80.0); Platelet Count 139 K/mm3 (142-424); Red Blood Count 3.33 M/mm3 (4.20-5.40); Red Cell Distribution Width 12.9 % (11.5-17.5); White Blood Count 10.4 K/mm3 (4.8-10.8)
[2020-11-06 00:48] LABS: Chloride 112 mmol/L (98-107); Potassium 5.2 mmoL/L (3.5-5.1); Sodium 142 mmol/L (136-145)
[2020-11-06 00:51] LABS: Alanine Aminotransferase 17 U/L (12-78); Albumin Level 3.9 g/dl (3.5-5.0); Alkaline Phosphatase 104 U/L (38-126); Anion Gap 15.2 mEq/L (5-15); Aspartate Amino Transferase 24 U/L (14-36); Bilirubin,Total 0.3 mg/dl (0.2-1.3); Blood Urea Nitrogen 33 mg/dl (7-17); Carbon Dioxide 20 mmol/L (22.0-30.0); Creatinine Clearance Estimated 30 mL/min (50-200); Estimated Glomerular Filt Rate 27 ml/min (>60); GFR (African American) 33 ML/MIN (>60); Globulin 3.8 g/dL (1.3-3.2); Total Protein,Serum 7.7 g/dl (6.3-8.2)
[2020-11-06 00:52] LABS: Calcium 8.7 mg/dl (8.4-10.2); Glucose 167 mg/dl (74-100)
--- NOTE | 2020-11-06 01:31 | PC.NURSE ---
Plasterer Tender notified for bed assignment
--- NOTE | 2020-11-06 02:02 | PC.NURSE ---
PT ARRIVED TO FLOOR VIA STRETCHER FROM ED W/STAFF AT [id number]
[2020-11-06 02:55] LABS: C-Reactive Protein 10.1 mg/L (0-4)
[2020-11-06 03:08] LABS: Procalcitonin 0.068 ng/mL (0.0-2.0)
[2020-11-06 03:18] LABS: POC Glucose,Bedside 130 (70-110)
--- NOTE | 2020-11-06 05:33 | PC.NURSE ---
pt admitted with AMS, UTI. pt has slept since arrival to floor. pascual in place and draining. sediment noted in urine. iv patent and infusing per order. long term was contacted for updated med list so we could complete med rec. still have not received list at this time. pt has a stage 2 to buttock. 2qh turn. flaccid to right side. bed alarm is on. call light in reach. will continue to monitor
[2020-11-06 05:51] LABS: Erythrocyte Sedimentation Rate 102 mm/hr (0-30)
--- NOTE | 2020-11-06 07:35 | HMH.PHAVTE ---
[facility] Pharmacy VTE Monitoring - Patient Demographics Admission date: 11/05/20 Report Date: 11/06/20 Time: 07:35 Allergies/Adverse Reactions: Patient Allergies cephalexin [CEPHALEXIN] Allergy (Mild, Verified 06/11/20 16:14) Unknown allergy reaction metformin [METFORMIN] Allergy (Mild, Verified 06/11/20 16:14) Unknown allergy reaction Sulfa (Sulfonamide Antibiotics) [SULFA (SULFONAMIDE ANTIBIOTICS)] Allergy (Mild, Verified 06/11/20 16:14) Unknown allergy reaction atorvastatin [From Lipitor] Allergy (Unknown, Verified 06/11/20 16:14) Unknown allergy reaction Height: 1.65 m Weight: 60.866 kg Patient Problems: Current Active Problems UTI (urinary tract infection) (Acute) Acute delirium (Acute) Renal insufficiency (Chronic) - VTE Risk Labs: VTE Related Lab Results Hgb 11.0 g/dL (12.2-16.2) L 11/06/20 00:29 Hct 36.2 % (37.0-47.0) L 11/06/20 00:29 Plt Count 139 K/mm3 (142-424) L 11/06/20 00:29 BUN 33 mg/dl (7-17) H 11/06/20 00:29 Creatinine 1.80 mg/dl (0.52-1.04) H 11/06/20 00:29 Estimated Creat Clear 30 mL/min (50-200) 11/06/20 00:29 Was VTE Risk Assessment Performed: Yes VTE Score: 3 VTE Risk Level: Low Risk - Prophylaxis VTE Prophylaxis Ordered?: Yes Types of VTE Prophylaxis: TEDS Knee High Location of Applied Device: Bilateral Lower Extremeties
--- NOTE | 2020-11-06 08:05 | SW/DCPLANNER ---
PATIENT ADMITTED TO [facility] FROM [facility] WITH ACUTE DELIRIUM... SHE IS A [facility] RESIDENT THERE AND IS ON A BEDHOLD... SHE IS IN AN OBSERVATION STATUS HERE AND HER STAY SHOULD BE SHORT.. I HAVE NOTIFIED THE FACILITY TO CHECK ON HER STATUS THERE...
[2020-11-06 08:38] LABS: Basophils % 0.4 % (0.1-2.0); Eosinophils # 0.3 K/mm3 (0.0-0.4); Eosinophils % 3.3 % (0.1-12.0); Hemoglobin 10.8 g/dL (12.2-16.2); Lymphocytes # 1.3 K/mm3 (0.7-4.5); Lymphocytes % 13.7 % (10-50); Mean Corpuscular HGB Conc 32.6 g/dL (31.8-35.4); Mean Corpuscular Hemoglobin 34.8 pg (27.0-31.2); Mean Corpuscular Volume 106.9 fl (81-99); Mean Platelet Volume 10.2 fl (7.4-10.4); Monocytes # 0.3 K/mm3 (0.1-1.0); Monocytes % 2.7 % (1.7-9.3); Neutrophils # 7.9 K/mm3 (1.8-7.8); Platelet Count 135 K/mm3 (142-424); Red Blood Count 3.09 M/mm3 (4.20-5.40); Red Cell Distribution Width 13.7 % (11.5-17.5); White Blood Count 9.9 K/mm3 (4.8-10.8)
[2020-11-06 09:28] LABS: Anion Gap 14.2 mEq/L (5-15); Blood Urea Nitrogen 28 mg/dl (7-17); Calcium 8.3 mg/dl (8.4-10.2); Carbon Dioxide 21 mmol/L (22.0-30.0); Chloride 113 mmol/L (98-107); Creatinine Clearance Estimated 27 mL/min (50-200); Estimated Glomerular Filt Rate 31 ml/min (>60); GFR (African American) 38 ML/MIN (>60); Glucose 112 mg/dl (74-100); Potassium 5.2 mmoL/L (3.5-5.1); Sodium 143 mmol/L (136-145)
[2020-11-06 10:18] LABS: POC Glucose,Bedside 110 (70-110)
--- NOTE | 2020-11-06 10:49 | PC.NURSE ---
Spoke w/ pt's daughter ( POA) Stacie Watt to verify code status. Pt is currently non-verbal/ AMS, Resuscitation status reviewed w/ daughter, states she is okay w/ CPR, ACLS meds, defib but does not wish for pt to be intubated/use of ventilator. Verified this w/ K MACKENZIE Arias. Consent also obtained for photo consent, verified w/ K MACKENZIE Arias. Appropriate paperwork completed and placed on chart.
--- NOTE | 2020-11-06 11:51 | HMH.PHAINT ---
MEDICATION RECONCILIATION COMPLETED USING MAR AND MD OFFICE LIST.
--- NOTE | 2020-11-06 13:36 | HMH.HP ---
*Admission Date: 11/05/20 *Chief complaint: ams *History of present illness: 80 yr old female presents to ed with AMS,decreased LOC, from [facility] via ambulance. Prior CVA with right sided weakness. Pt arrived in ed alert and oriented to Person, but very difficult to understand. Work up in ed shows a UTI pt admitted for further treatment and work up. [facility] History I have reviewed the patient's past medical history: Yes Medical History: Reports:: Arrhythmia, Atherosclerotic Heart Disease, Atrial Fibrillation, Cancer, Chronic Obstructive Pulmonary Disease (COPD), Coronary Artery Disease, Cerebrovascular Accident, Depression, Diabetes Mellitus Type 2, Gastroesophageal Reflux Disease(GERD), Hyperlipidemia, Hypertension, Lung Disease, Renal Insufficiency Denies:: Diabetes Mellitus Type 1, Internal Pacemaker, MRSA, Seizures *Have you ever received a pneumonia vaccine?: No (AMS) *Have you received a flu vaccine this season?: No (AMS) Other Medical History: Reports: Anemia, Arthritis, Cataracts, Other Laterality Cases: Left: Breast Biopsy, Lumpectomy, Total Hip Replacement Other Surgeries: Yes: Cardiac Catheterization, Cholecystectomy, Coronary Stent, Hysterectomy-Total. No: Pacemaker Amputation: No Fractures: Yes - *Social History Smoking Status: Never smoker Tobacco Type: cigarettes # Packs/Day (cigarettes): 1 #Yrs smoked (if former smoker): 60 Alcohol Intake: never *Occupational Status:: disabled Housing: care home Household Members: family *Travel in the last 8 weeks: None - Psychiatric History Pschychiatric History:: Reports:: Depression Family Hx:: Unable to obtain Review of Systems - Review of Systems Review of systems:: unable to obtain - Constitutional Reports body ache(s), Reports fever(s) - Eyes Denies blurry vision - ENT Denies bleeding gums, Denies dizziness - *Neurologic Reports confusion, Denies seizure-like activity Meds Home Medications Medication Instructions Recorded Confirmed Type atenoloL [Atenolol 50mg Tab] 50 mg PO DAILY 09/15/17 11/06/20 History omeprazole 40 mg capsule,delayed 40 mg PO DAILY 10/05/17 11/06/20 History release Ferrous Sulfate [Ferrous Sulfate 325 mg PO DAILY 12/17/17 11/06/20 History 325mg Tablet] Spironolactone [Aldactone 25mg 12.5 mg PO DAILY 12/20/17 11/06/20 History Tab] loratadine 10 mg tablet 10 mg PO DAILY 05/10/18 11/06/20 History sertraline 25 mg tablet 12.5 mg PO DAILY 05/10/18 11/06/20 History tamoxifen 20 mg tablet 20 mg PO DAILY 05/10/18 11/06/20 History ursodiol 300 mg capsule 300 mg PO BID 05/10/18 11/06/20 History cyanocobalamin (vitamin B-12) 1,000 mcg PO DAILY 01/09/19 11/06/20 History 1,000 mcg capsule ascorbic acid (vitamin C) 500 mg 500 mg PO DAILY 06/12/19 11/06/20 History capsule Acetaminophen 1,000 mg PO Q8HP PRN 01/27/20 11/06/20 History Cyclobenzaprine HCl 5 mg PO DAILYP PRN 01/27/20 11/06/20 History [Cyclobenzaprine 5mg Tab*] Aspirin [Aspirin 325mg Tab] 325 mg PO DAILY 30 Days #30 tab 01/29/20 11/06/20 Rx Verapamil HCl 40 mg PO TID 11/06/20 11/06/20 History Allergies Allergy/AdvReac Type Severity Reaction Status Date / Time cephalexin [CEPHALEXIN] Allergy Mild Unknown Verified 06/11/20 16:14 allergy reaction metformin [METFORMIN] Allergy Mild Unknown Verified 06/11/20 16:14 allergy reaction Sulfa (Sulfonamide Allergy Mild Unknown Verified 06/11/20 16:14 Antibiotics) allergy [SULFA (SULFONAMIDE reaction ANTIBIOTICS)] atorvastatin [From Lipitor] Allergy Unknown Unknown Verified 06/11/20 16:14 allergy reaction Exam Vital signs and Labs for Last 24 Hours: Temp Pulse Resp BP Pulse Ox 98.7 F 74 20 155/54 H 96 11/06/20 10:11 11/06/20 08:00 11/06/20 08:00 11/06/20 08:00 11/06/20 08:00 Laboratory Results - last 24 hr 11/05/20 21:55: Urine Color Yellow, Urine Appearance Clear, Urine pH 6.0, Ur Specific [place] 1.015, Urine Protein 1+
--- NOTE | 2020-11-06 16:17 | PC.NURSE ---
Pt is A+O to person. Pt is unable to speak needs to nursing staff. Pt has appeared agitated t/o shift. Pt has a stage 2 pressure ulcer on right buttock. Pt is being turned q2h. Joshua catheter in place draining clear, yellow urine. Pt bed alarm is on. Call light within reach. Will continue to monitor.
[2020-11-06 16:22] LABS: POC Glucose,Bedside 88 (70-110)
--- NOTE | 2020-11-06 18:01 | PC.WOUNDNOTE ---
Stage 2 pressure ulcer on left buttock. 1x1 cm . .
--- NOTE | 2020-11-06 18:09 | PC.WOUNDNOTE ---
Stage 2 pressure ulcer on left buttock. 1x1 cm indention. redness 2x3 cm surrounding.
--- NOTE | 2020-11-06 18:10 | PC.WOUNDNOTE ---
Dark ulcer on fourth toe on right foot. 1x0.5 cm
[2020-11-06 23:34] LABS: POC Glucose,Bedside 93 (70-110)
[2020-11-07] VITALS (8 sets, daily range): BP systolic 96–162; BP diastolic 61–86; PULSE 80–104; RESP 18–19; TEMP 36.7–37.4; O2SAT 93–96; BMI 22.1
--- NOTE | 2020-11-07 03:46 | PC.NURSE ---
A&OX1. TOLERATING RA WELL. PT HAS HAD NO C/O THUS FAR THIS SHIFT. PT HAS BEEN SLEEPING COMFORTABLY IN BED. PT BEING TURNED Q2H. F/C DRAINING LIGHT YELLOW URINE. RESTING T/O MAJORITY OF SHIFT. PT DID GET AGITATED WHEN I GOT HER FIRST FSBS (93). VSS WILL CONTINUE TO MONITOR.
[2020-11-07 09:25] LABS: Basophils # 0.1 K/mm3 (0-0.2); Basophils % 0.5 % (0.1-2.0); Eosinophils # 0.2 K/mm3 (0.0-0.4); Eosinophils % 1.7 % (0.1-12.0); Hematocrit 33.5 % (37.0-47.0); Lymphocytes # 1.8 K/mm3 (0.7-4.5); Lymphocytes % 14.5 % (10-50); Mean Corpuscular HGB Conc 32.8 g/dL (31.8-35.4); Mean Corpuscular Hemoglobin 35.4 pg (27.0-31.2); Mean Corpuscular Volume 107.9 fl (81-99); Mean Platelet Volume 8.9 fl (7.4-10.4); Monocytes # 0.4 K/mm3 (0.1-1.0); Monocytes % 3.4 % (1.7-9.3); Neutrophils # 9.6 K/mm3 (1.8-7.8); Neutrophils % 79.8 % (37.0-80.0); Platelet Count 128 K/mm3 (142-424); Red Blood Count 3.11 M/mm3 (4.20-5.40); Red Cell Distribution Width 13.8 % (11.5-17.5); White Blood Count 12.1 K/mm3 (4.8-10.8)
[2020-11-07 09:41] LABS: Anion Gap 13.7 mEq/L (5-15); Blood Urea Nitrogen 18 mg/dl (7-17); Calcium 8.3 mg/dl (8.4-10.2); Carbon Dioxide 18 mmol/L (22.0-30.0); Chloride 113 mmol/L (98-107); Creatinine Clearance Estimated 33 mL/min (50-200); Estimated Glomerular Filt Rate 40 ml/min (>60); GFR (African American) 48 ML/MIN (>60); Glucose 96 mg/dl (74-100); Potassium 4.7 mmoL/L (3.5-5.1); Sodium 140 mmol/L (136-145)
[2020-11-07 09:44] LABS: POC Glucose,Bedside 103 (70-110)
--- NOTE | 2020-11-07 12:08 | XR_ITS ---
PROCEDURE: XR CHEST PORTABLE CLINICAL HISTORY: SOA LA COMPARISON: CR CXR1VP XR chest portable from 12/17/2017 CR CXR1VP XR chest portable from 12/19/[address] CHEST WO CON from 01/26/2020 CR XR CHEST AP from 11/05/2020 FINDINGS: Borderline cardiomegaly without failure. There is tortuosity/ectasia of the descending thoracic aorta. The lungs are clear without infiltrates, suspicious nodules, or pleural effusions. Surgical clips left axilla. IMPRESSION: No change with no acute finding Dictated by: Srinivas Jean MD 11/07/2020 12:38 Srinivas Jean MD in OV 11/07/2020 12:38
--- NOTE | 2020-11-07 12:09 | HMH.ACPN2 ---
Internal Medicine - PN: Subj *Date: 11/07/20 *Time: 09:50 Interval history: 80-year-old female patient lying in bed resting quietly with eyes open, awakens to verbal stimuli. Does not answer questions or converse, only looks at person talking to her. She is in no apparent distress. Room air saturation 96%. Preliminary urine showing gram-negative rods, 1 blood culture showing gram-positive cocci and possible yeast Exam Vital signs and Labs for Last 24 Hours: Temp Pulse Resp BP Pulse Ox 99.4 F 86 19 162/86 H 93 L 11/07/20 08:00 11/07/20 10:05 11/07/20 08:00 11/07/20 08:00 11/07/20 10:05 Laboratory Results - last 24 hr 11/05/20 21:55: Urine Color Yellow, Urine Appearance Clear, Urine pH 6.0, Ur Specific [place] 1.015, Urine Protein 1+, Urine Glucose (UA) Negative, Urine Ketones Negative, Urine Blood 2+, Urine Nitrate Negative, Urine Bilirubin Negative, Urine Urobilinogen 0.2, Ur Leukocyte Esterase 3+ A, Urine RBC Tntc, Urine WBC Tntc, Ur Squamous Epith Cells Occasional, Urine Bacteria 2+ 11/06/20 16:14: POC Glucose 88 11/06/20 23:24: POC Glucose 93 11/07/20 09:16: WBC 12.1 H, RBC 3.11 L, Hgb 11.0 L, Hct 33.5 L, MCV 107.9 H, MCH 35.4 H, MCHC 32.8, RDW 13.8, Plt Count 128 L, MPV 8.9, Neut % (Auto) 79.8, Lymph % (Auto) 14.5, [place] % (Auto) 3.4, Eos % (Auto) 1.7, Baso % (Auto) 0.5, Neut # (Auto) 9.6 H, Lymph # (Auto) 1.8, [place] # (Auto) 0.4, Eos # (Auto) 0.2, Baso # (Auto) 0.1 11/07/20 09:16: Sodium 140, Potassium 4.7, Chloride 113 H, Carbon Dioxide 18 L, Anion Gap 13.7, BUN 18 H D, Creatinine 1.30 H, Estimated Creat Clear 33, Estimated GFR 40 L, Est GFR ( Amer) 48 L D, Glucose 96, Calcium 8.3 L 11/07/20 09:37: POC Glucose 103 I & O for Last 24 hours: Intake & Output 11/04/20 11/05/20 11/06/20 11/07/20 23:59 23:59 23:59 23:59 Intake Total 1292 / 1292 1356 / 1356 Output Total 1600 / 2600 1000 / 1000 Balance -308 / -1308 356 / 356 Weight 165 lb 134 lb 7.712 oz 133 lb 3 oz Microbiology Reports for the Last 24 Hours: Microbiology 11/05/20 21:55 Urine,Catheterized Urine Culture - Preliminary Gram Negative Rods 11/06/20 00:14 Blood Blood Culture - Preliminary - Constitutional no acute distress - *Routine HEENT Exam Head: Present: normocephalic Eye: Present: EOMI ENT: Present: mucous membranes moist - *Routine Neck Exam Present: trachea midline. Absent: tracheal deviation - *Routine Respiratory Exam Present: wheezes. Absent: accessory muscle use - *Routine Cardiovascular Exam Present: RRR - *Routine Abdominal Exam Present: soft, normoactive bowel sounds. Absent: tenderness, guarding - *Routine Extremities Exam Present: full ROM, pulses intact. Absent: cyanosis, clubbing, calf tenderness - *Routine Skin Exam Present: intact, dry, warm. Absent: cyanosis, erythema - *Routine Neurological Exam Present: alert, oriented X3. Absent: sensory deficit, motor deficit - Routine Psychiatric Exam Present: normal affect, normal thought process. Absent: suicidal ideation, homicidal ideation Assessment and Plan (1) UTI (urinary tract infection) Status: Acute Qualifiers: Urinary tract infection type: site unspecified Hematuria presence: without hematuria Qualified Code(s): N39.0 - Urinary tract infection, site not specified Category: Medical Code(s): N39.0 - Urinary tract infection, site not specified (2) History of breast cancer Status: Acute Category: Medical Code(s): Z85.3 - Personal history of malignant neoplasm of breast (3) UTI (urinary tract infection) Status: Acute Qualifiers: Urinary tract infection type: site unspecified Hematuria presence: without hematuria Qualified Code(s): N39.0 - Urinary tract infection, site not specified Category: Medical Code(s): N39.0 - Urinary tract infection, site not specified (4) CVA, old, cognitive deficits Status: Chronic Category: Medical Code(s): I69.319
--- NOTE | 2020-11-07 13:00 | DIET.NUTRFU ---
Pt noncommunicative. She was given soft mechanical diet today but was only able to eat a few bites of lunch. She has a stage II ulcer, protein fortified foods on diet order. BG moderate- [id number]. Please assist with meals and encourage/cue at meal times, offer glucerna if meal refused.
[2020-11-07 13:32] LABS: ABG Base Excess -8.2 mmol/L (-2.4-2.3); ABG HCO3 17.2 mmhg (22.0-26.0); ABG Oxygen Saturation 94 % (90-100); ABG PCO2 30.7 mmhg (35.0-45.0); ABG PH 7.37 mmol/L (7.35-7.45); ABG PO2 67.5 mmhg (80-100); ABG TCO2 18.1 mmhg (23-27)
[2020-11-07 13:35] LABS: Allen's Test Patient Unable; Oxygen ROOM AIR %; Source Right Radial
[2020-11-07 16:31] LABS: POC Glucose,Bedside 152 (70-110)
--- NOTE | 2020-11-07 16:41 | PC.NURSE ---
Pt A+O x1. Pt is not able to speak needs to staff. Pt has been resting in bed. Turned q2h. Joshua catheter in place draining clear, yellow urine. No acute changes this shift. Call light within reach. Bed alarm on. Will continue to monitor.
--- NOTE | 2020-11-07 20:33 | PC.NURSE ---
trashed pulled and tried to get pt to eat a snack at this time
[2020-11-07 20:52] LABS: POC Glucose,Bedside 172 (70-110)
[2020-11-08] VITALS (9 sets, daily range): BP systolic 118–148; BP diastolic 62–88; PULSE 68–136; RESP 16–17; TEMP 36.2–36.9; O2SAT 95–99; BMI 23.3
[2020-11-08 05:21] LABS: POC Glucose,Bedside 173 (70-110)
--- NOTE | 2020-11-08 05:44 | PC.NURSE ---
shift summary pt is alert but confused. lung sounds are clear with sats maintained 90% or above on room air. pt has been turned Q2 to prevent skin breakdown. pt has rested comfortably during this shift.pascual in place urine is clear and yellow in color. no acute changes will continue to monitor.
[2020-11-08 06:58] LABS: Eosinophils # 0.1 K/mm3 (0.0-0.4); Eosinophils % 0.5 % (0.1-12.0)
[2020-11-08 07:00] LABS: Basophils % 0.2 % (0.1-2.0); Hematocrit 30.3 % (37.0-47.0); Lymphocytes % 17.1 % (10-50); Mean Corpuscular Hemoglobin 35.2 pg (27.0-31.2); Mean Corpuscular Volume 106.7 fl (81-99); Mean Platelet Volume 10.4 fl (7.4-10.4); Monocytes # 0.6 K/mm3 (0.1-1.0); Monocytes % 4.7 % (1.7-9.3); Neutrophils % 77.3 % (37.0-80.0); Platelet Count 123 K/mm3 (142-424); Red Blood Count 2.84 M/mm3 (4.20-5.40); Red Cell Distribution Width 13.7 % (11.5-17.5); White Blood Count 11.7 K/mm3 (4.8-10.8)
[2020-11-08 07:20] LABS: Blood Urea Nitrogen 13 mg/dl (7-17); Carbon Dioxide 17 mmol/L (22.0-30.0); Chloride 114 mmol/L (98-107); Creatinine Clearance Estimated 38 mL/min (50-200); Estimated Glomerular Filt Rate 43 ml/min (>60); GFR (African American) 52 ML/MIN (>60); Glucose 137 mg/dl (74-100); Sodium 139 mmol/L (136-145)
--- NOTE | 2020-11-08 09:52 | CT_ITS ---
PROCEDURE: CT HEAD/BRAIN WO CON CLINICAL INDICATION: poss cva COMPARISON: CT CT HEAD/BRAIN WO CON from 01/26/[address] HEAD/BRAIN WO CON from 11/05/2020 TECHNIQUE: Axial images obtained. All CT scans at the facility use one or more dose reduction, viz: automated exposure control, ma/kV adjustment per patient size (including targeted exams where dose is matched to indication, i.e. head), or iterative reconstruction technique. FINDINGS: No midline shift, mass effect, intracranial hemorrhage, hydrocephalus, or extra-axial fluid collection is evident. There is generalized atrophy with hypoattenuation of the periventricular white matter consistent with microangiopathic changes. The calvarium has an unremarkable appearance. Postsurgical changes left mastoid region no sinus air-fluid level. IMPRESSION: No acute intracranial finding Dictated by: Srinivas Jean MD 11/08/2020 10:50 Srinivas Jean MD in [facility] 11/08/2020 10:50
--- NOTE | 2020-11-08 09:59 | SW/DCPLANNER ---
Addendum entered by [facility] 11/15/20 10:19: I have notified Saida with [facility] regarding patient expiring at 20:20 on 11/14/20. Addendum entered by [facility] 11/14/20 09:52: Patient continues inpatient Hospice Care. Addendum entered by [facility] 11/13/20 14:10: Per Mayra (Hospice nurse) this patient will be admitted under inpatient Hospice services as of 2:30PM today. I have informed Dr Hughes/Nicholas/Papa. Mayra stated that if patient needs to be re-evaluated this will happen on Wednesday. I will continue to follow up with Mayra from [facility]. Addendum entered by [facility] 11/13/20 11:00: Patients family (daughter/grandson) are now interested in Hospice services. [facility] will evaluate this patient and if needs transfer back to [facility] then [facility] will evaluate. I will continue to follow up with patients family and Hospice. Addendum entered by [facility] 11/13/20 09:46: I have updated Monica with [facility] regarding patient. Addendum entered by [facility] 11/11/20 13:07: Papa asked that I speak with family regarding Hospice services. Family stated that they have more questions for MD prior to agreeing to Hospice services. Papa stated that she will come back to [facility] shortly to speak with family in patients room. Family stated they will wait for Papa to visit. Original Note: This patient currently resides at [facility] under ICF level of care. I have updated Monica with [facility] this morning regarding patients status. Patient is not ready for discharge at this time.
--- NOTE | 2020-11-08 10:23 | PC.NURSE ---
DOWN FOR CT
--- NOTE | 2020-11-08 11:51 | HMH.SLDYSPHA ---
Speech & Language Evaluation Speech/Language Dysphagia Evaluation Start: 11/08/20 11:45 Freq: ONCE Status: Active Protocol: Document 11/08/20 11:45 SHAQ (Rec: 11/08/20 11:51 SHAQ [id number]) Dysphagia Assess/Goals/Plan Assessment Date of Evaluation: 11/08/20 Evaluation Type Initial Certification Assessment/Problems Dysphagia Does Patient Qualify for Service No Qualify/Failure Comment Patient has difficulty following directions and is unable to participate in therapy. Patient will be monitored for possible diet upgrades. Recommendations PHYSICIAN CERTIFICATION: The specified therapy services are required, authorized, and reviewed every 30 days. Diet Recommendations Pureed Liquid Type Recommendations [place] Consistency SL Swallow Guidelines Assist w/all meals,Standard Aspiration Prec. Dysphagia Swallow Precautions/Strategies Sitting Upright (90 deg), Liquids from Spoon Plan Pt/Guardian verbally ack understanding Yes: RN notified of dx/prognosis/goals G -code Required No Speech & Language HPI Language Primary Language Citizen Of [place] General Information General Current Food Consistancy Dysphagia Mechanical Soft,Thin Liquids Dentition Edentulous Oxygen Status Nasal Cannula Facial Symmetry Patient Baseline Ability to Follow Directions Poor Communication Ability Severe Impairment Dysphagia:Food Presentation Evaluation Food Type Pureed,Liquid,Pudding Normal/Thin Liquid Response Unable to suck straw,Coughing after swallow,Clears throat Dysphagia Evaluation Summary Ms. Masters was given the following consistencies: thins via straw and spoon, nectar via spoon and open cup, pudding, and pureed. THe following signs of dysphagia were noted: Ms. Masters could not suck via straw, and coughed with thins via spoon, Ms. Masters coughed with nectar via open cup, and she coughed with pudding via spoon . At this time, the least restrictive diet would be: pureed diet with nectar via spoon. Assistance is needed
--- NOTE | 2020-11-08 13:04 | XR_ITS ---
PROCEDURE: XR CHEST PORTABLE CLINICAL HISTORY: swallowing issues COMPARISON: CR [id number] XR chest portable from 12/19/[address] CHEST WO CON from 01/26/2020 CR XR CHEST AP from 11/05/2020 CR XR CHEST PORTABLE from 11/07/2020 FINDINGS: Borderline cardiomegaly without failure. There are some atelectatic changes in the left lung base. The remaining lungs are clear. Surgical clips are present in the left axilla. No acute bony abnormalities. IMPRESSION: Mild left basilar atelectasis with cardiomegaly Dictated by: Srinivas Jean MD 11/08/2020 14:28 Srinivas Jean MD in [facility] 11/08/2020 14:28
[2020-11-08 17:25] LABS: POC Glucose,Bedside 99 (70-110)
--- NOTE | 2020-11-08 20:05 | PC.NURSE ---
No acute changes this shift. New IV started in the R hand. Joshua removed this afternoon. Report given to Toy Morris RN
--- NOTE | 2020-11-08 21:33 | HMH.ACPN2 ---
Internal Medicine - PN: Subj *Date: 11/08/20 *Time: 09:00 Interval history: pt alert answers to name when called and states name but answers no other questions Exam Vital signs and Labs for Last 24 Hours: Temp Pulse Resp BP Pulse Ox 97.9 F 90 16 138/88 99 11/08/20 15:37 11/08/20 17:17 11/08/20 15:37 11/08/20 15:37 11/08/20 17:17 Laboratory Results - last 24 hr 11/08/20 02:01: POC Glucose 173 H 11/08/20 06:07: WBC 11.7 H, RBC 2.84 L, Hgb 10.0 L, Hct 30.3 L, MCV 106.7 H, MCH 35.2 H, MCHC 33.0, RDW 13.7, Plt Count 123 L, MPV 10.4, Neut % (Auto) 77.3, Lymph % (Auto) 17.1, [place] % (Auto) 4.7, Eos % (Auto) 0.5, Baso % (Auto) 0.2, Neut # (Auto) 9.0 H, Lymph # (Auto) 2.0, [place] # (Auto) 0.6, Eos # (Auto) 0.1, Baso # (Auto) 0.0 11/08/20 06:07: Sodium 139, Potassium 4.0, Chloride 114 H, Carbon Dioxide 17 L, Anion Gap 12.0, BUN 13 D, Creatinine 1.20 H, Estimated Creat Clear 38, Estimated GFR 43 L, Est GFR ( Amer) 52 L, Glucose 137 H D, Calcium 8.0 L 11/08/20 16:46: POC Glucose 99 I & O for Last 24 hours: Intake & Output 11/06/20 11/07/20 11/08/20 11/09/20 11:59 11:59 11:59 11:59 Intake Total 300 / 300 2348 / 2348 140 / 140 110 / 110 Output Total 2600 / 2600 1500 / 1500 500 / 500 Balance 300 / 300 -252 / -252 -1360 / -1360 -390 / -390 Weight 134 lb 3 oz 133 lb 3 oz 140 lb 0.2 oz Microbiology Reports for the Last 24 Hours: Microbiology 11/06/20 00:14 Blood Blood Culture - Preliminary 11/05/20 21:55 Urine,Catheterized Urine Culture - Final Proteus mirabilis 11/06/20 00:14 Blood Blood Culture - Preliminary NO GROWTH AFTER 48 HOURS - Constitutional no acute distress - *Routine HEENT Exam Head: Present: normocephalic Eye: Present: PERRL ENT: Present: mucous membranes moist - *Routine Neck Exam Present: supple. Absent: lymphadenopathy - *Routine Respiratory Exam Present: CTA bilaterally - *Routine Cardiovascular Exam Present: RRR - *Routine Abdominal Exam Present: soft, normoactive bowel sounds. Absent: tenderness - *Routine Extremities Exam Absent: cyanosis, clubbing, edema Comments: rt side weakness - *Routine Skin Exam Present: warm. Absent: rash - *Routine Neurological Exam Present: alert, oriented X3, altered mental status - Routine Psychiatric Exam Present: unable to assess Assessment and Plan (1) UTI (urinary tract infection) Status: Acute Qualifiers: Urinary tract infection type: site unspecified Hematuria presence: without hematuria Qualified Code(s): N39.0 - Urinary tract infection, site not specified Category: Medical Code(s): N39.0 - Urinary tract infection, site not specified (2) History of breast cancer Status: Acute Category: Medical Code(s): Z85.3 - Personal history of malignant neoplasm of breast (3) UTI (urinary tract infection) Status: Acute Qualifiers: Urinary tract infection type: site unspecified Hematuria presence: without hematuria Qualified Code(s): N39.0 - Urinary tract infection, site not specified Category: Medical Code(s): N39.0 - Urinary tract infection, site not specified (4) CVA, old, cognitive deficits Status: Chronic Category: Medical Code(s): I69.319 - Unspecified symptoms and signs involving cognitive functions following cerebral infarction (5) Diabetes mellitus, type II Status: Chronic Qualifiers: Diabetes mellitus moth exterminator insulin use: without moth exterminator use Diabetes mellitus complication status: without complication Qualified Code(s): E11.9 - Type 2 diabetes mellitus without complications Category: Medical Code(s): E11.9 - Type 2 diabetes mellitus without complications (6) Hemiparesis affecting dominant side as late effect of cerebrovascular accident Status: Chronic Category: Medical Code(s): I69.359 - Hemiplegia and hemiparesis following cerebral infarction affecting unspecified side
[2020-11-09] VITALS (16 sets, daily range): BP systolic 100–143; BP diastolic 57–87; PULSE 62–171; RESP 16–32; TEMP 36.5–37.3; O2SAT 91–100; BMI 22.4
[2020-11-09 03:31] LABS: POC Glucose,Bedside 113 (70-110)
--- NOTE | 2020-11-09 03:52 | PC.NURSE ---
shift summary pt is alert but confused. lung sounds are clear with sats maintained 90% or above on room air. pt has been turned Q2 to prevent skin breakdown. pt has rested comfortably during this shift.pt pulled out her iv a new iv was started and secured well. no acute changes will continue to monitor.
[2020-11-09 07:14] LABS: Eosinophils # 0.1 K/mm3 (0.0-0.4)
[2020-11-09 07:20] LABS: Anion Gap 13.4 mEq/L (5-15); Blood Urea Nitrogen 14 mg/dl (7-17); Calcium 8.1 mg/dl (8.4-10.2); Carbon Dioxide 16 mmol/L (22.0-30.0); Chloride 116 mmol/L (98-107); Creatinine Clearance Estimated 34 mL/min (50-200); Estimated Glomerular Filt Rate 40 ml/min (>60); GFR (African American) 48 ML/MIN (>60); Glucose 89 mg/dl (74-100); Potassium 4.4 mmoL/L (3.5-5.1); Sodium 141 mmol/L (136-145)
[2020-11-09 07:33] LABS: Basophils % 0.3 % (0.1-2.0); Eosinophils % 1.9 % (0.1-12.0); Hematocrit 30.3 % (37.0-47.0); Hemoglobin 9.3 g/dL (12.2-16.2); Lymphocytes # 1.8 K/mm3 (0.7-4.5); Lymphocytes % 24.6 % (10-50); Mean Corpuscular HGB Conc 30.7 g/dL (31.8-35.4); Mean Corpuscular Hemoglobin 32.3 pg (27.0-31.2); Mean Corpuscular Volume 105.1 fl (81-99); Mean Platelet Volume 10.6 fl (7.4-10.4); Monocytes # 0.4 K/mm3 (0.1-1.0); Monocytes % 4.8 % (1.7-9.3); Neutrophils # 5.1 K/mm3 (1.8-7.8); Neutrophils % 68.4 % (37.0-80.0); Platelet Count 99 K/mm3 (142-424); Red Blood Count 2.89 M/mm3 (4.20-5.40); Red Cell Distribution Width 14.2 % (11.5-17.5); White Blood Count 7.4 K/mm3 (4.8-10.8)
--- NOTE | 2020-11-09 09:01 | HMH.ACPN2 ---
Internal Medicine - PN: Subj *Date: 11/10/20 *Time: 07:46 Interval history: doing better - more alert - proteus keith on urine culture Exam Vital signs and Labs for Last 24 Hours: Temp Pulse Resp BP Pulse Ox 98.2 F 62 20 143/80 H 100 11/09/20 04:29 11/09/20 08:00 11/09/20 08:00 11/09/20 08:00 11/09/20 08:00 Laboratory Results - last 24 hr 11/08/20 16:46: POC Glucose 99 11/09/20 03:23: POC Glucose 113 H 11/09/20 06:27: WBC 7.4 D, RBC 2.89 L, Hgb 9.3 L, Hct 30.3 L, MCV 105.1 H, MCH 32.3 H, MCHC 30.7 L, RDW 14.2, Plt Count 99 L, MPV 10.6 H, Neut % (Auto) 68.4, Lymph % (Auto) 24.6, [place] % (Auto) 4.8, Eos % (Auto) 1.9, Baso % (Auto) 0.3, Neut # (Auto) 5.1, Lymph # (Auto) 1.8, [place] # (Auto) 0.4, Eos # (Auto) 0.1, Baso # (Auto) 0.0 11/09/20 06:27: Sodium 141, Potassium 4.4, Chloride 116 H, Carbon Dioxide 16 L, Anion Gap 13.4, BUN 14, Creatinine 1.30 H, Estimated Creat Clear 34, Estimated GFR 40 L, Est GFR ( Amer) 48 L, Glucose 89, Calcium 8.1 L I & O for Last 24 hours: Intake & Output 11/06/20 11/07/20 11/08/20 11/09/20 11:59 11:59 11:59 11:59 Intake Total 300 / 300 2348 / 2348 140 / 140 230 / 230 Output Total 2600 / 2600 1500 / 1500 500 / 500 Balance 300 / 300 -252 / -252 -1360 / -1360 -270 / -270 Weight 134 lb 3 oz 133 lb 3 oz 140 lb 0.2 oz 135 lb 0.5 oz Microbiology Reports for the Last 24 Hours: Microbiology 11/06/20 00:14 Blood Blood Culture - Preliminary 11/05/20 21:55 Urine,Catheterized Urine Culture - Final Proteus mirabilis - Constitutional no acute distress - *Routine HEENT Exam Head: Present: normocephalic Eye: Present: EOMI, PERRL ENT: Present: mucous membranes dry - *Routine Neck Exam Present: supple - *Routine Respiratory Exam Present: decreased breath sounds - *Routine Cardiovascular Exam Present: RRR - *Routine Abdominal Exam Present: soft - *Routine Extremities Exam Present: pulses intact - *Routine Skin Exam Present: intact - *Routine Neurological Exam Present: CN II-XII intact more alert today - Routine Psychiatric Exam Present: unable to assess Assessment and Plan (1) UTI (urinary tract infection) Status: Acute Qualifiers: Urinary tract infection type: site unspecified Hematuria presence: without hematuria Qualified Code(s): N39.0 - Urinary tract infection, site not specified Category: Medical Code(s): N39.0 - Urinary tract infection, site not specified (2) History of breast cancer Status: Acute Category: Medical Code(s): Z85.3 - Personal history of malignant neoplasm of breast (3) UTI (urinary tract infection) Status: Acute Qualifiers: Urinary tract infection type: site unspecified Hematuria presence: without hematuria Qualified Code(s): N39.0 - Urinary tract infection, site not specified Category: Medical Code(s): N39.0 - Urinary tract infection, site not specified (4) CVA, old, cognitive deficits Status: Chronic Category: Medical Code(s): I69.319 - Unspecified symptoms and signs involving cognitive functions following cerebral infarction (5) Diabetes mellitus, type II Status: Chronic Qualifiers: Diabetes mellitus intermodal truck driver insulin use: without intermodal truck driver use Diabetes mellitus complication status: without complication Qualified Code(s): E11.9 - Type 2 diabetes mellitus without complications Category: Medical Code(s): E11.9 - Type 2 diabetes mellitus without complications (6) Hemiparesis affecting dominant side as late effect of cerebrovascular accident Status: Chronic Category: Medical Code(s): I69.359 - Hemiplegia and hemiparesis following cerebral infarction affecting unspecified side (7) History of CVA (cerebrovascular accident) Status: Chronic Category: Medical Code(s): Z86.73 - Personal history of transient ischemic attack (TIA), and cerebral infarction without residual deficits (8) Right hemiparesis Status:
--- NOTE | 2020-11-09 12:42 | HMH.ACPN ---
Internal Medicine - PN: Subj *Date: 11/09/20 *Time: 12:42 Exam Vital signs and Labs for Last 24 Hours: Temp Pulse Resp BP Pulse Ox 98.2 F 62 20 143/80 H 100 11/09/20 04:29 11/09/20 08:00 11/09/20 08:00 11/09/20 08:00 11/09/20 08:00 Laboratory Results - last 24 hr 11/08/20 16:46: POC Glucose 99 11/09/20 03:23: POC Glucose 113 H 11/09/20 06:27: WBC 7.4 D, RBC 2.89 L, Hgb 9.3 L, Hct 30.3 L, MCV 105.1 H, MCH 32.3 H, MCHC 30.7 L, RDW 14.2, Plt Count 99 L, MPV 10.6 H, Neut % (Auto) 68.4, Lymph % (Auto) 24.6, [place] % (Auto) 4.8, Eos % (Auto) 1.9, Baso % (Auto) 0.3, Neut # (Auto) 5.1, Lymph # (Auto) 1.8, [place] # (Auto) 0.4, Eos # (Auto) 0.1, Baso # (Auto) 0.0 11/09/20 06:27: Sodium 141, Potassium 4.4, Chloride 116 H, Carbon Dioxide 16 L, Anion Gap 13.4, BUN 14, Creatinine 1.30 H, Estimated Creat Clear 34, Estimated GFR 40 L, Est GFR ( Amer) 48 L, Glucose 89, Calcium 8.1 L I & O for Last 24 hours: Intake & Output 11/06/20 11/07/20 11/08/20 11/09/20 23:59 23:59 23:59 23:59 Intake Total 1292 / 1292 1476 / 1476 190 / 250 60 / 60 Output Total 1600 / 2600 1800 / 2500 1200 / 1200 Balance -308 / -1308 -324 / -1024 -1010 / -950 60 / 60 Weight 61 kg 60.413 kg 63.509 kg 61.249 kg Microbiology Reports for the Last 24 Hours: Microbiology 11/06/20 00:14 Blood Blood Culture - Preliminary Assessment and Plan (1) UTI (urinary tract infection) Status: Acute Qualifiers: Urinary tract infection type: site unspecified Hematuria presence: without hematuria Qualified Code(s): N39.0 - Urinary tract infection, site not specified Category: Medical Code(s): N39.0 - Urinary tract infection, site not specified (2) History of breast cancer Status: Acute Category: Medical Code(s): Z85.3 - Personal history of malignant neoplasm of breast (3) UTI (urinary tract infection) Status: Acute Qualifiers: Urinary tract infection type: site unspecified Hematuria presence: without hematuria Qualified Code(s): N39.0 - Urinary tract infection, site not specified Category: Medical Code(s): N39.0 - Urinary tract infection, site not specified (4) CVA, old, cognitive deficits Status: Chronic Category: Medical Code(s): I69.319 - Unspecified symptoms and signs involving cognitive functions following cerebral infarction (5) Diabetes mellitus, type II Status: Chronic Qualifiers: Diabetes mellitus intermediate insulin use: without intermediate use Diabetes mellitus complication status: without complication Qualified Code(s): E11.9 - Type 2 diabetes mellitus without complications Category: Medical Code(s): E11.9 - Type 2 diabetes mellitus without complications (6) Hemiparesis affecting dominant side as late effect of cerebrovascular accident Status: Chronic Category: Medical Code(s): I69.359 - Hemiplegia and hemiparesis following cerebral infarction affecting unspecified side (7) History of CVA (cerebrovascular accident) Status: Chronic Category: Medical Code(s): Z86.73 - Personal history of transient ischemic attack (TIA), and cerebral infarction without residual deficits (8) Right hemiparesis Status: Chronic Category: Medical Code(s): G81.91 - Hemiplegia, unspecified affecting right dominant side (9) Dysphagia Status: Acute Qualifiers: Dysphagia type: unspecified Qualified Code(s): R13.10 - Dysphagia, unspecified Category: Medical Code(s): R13.10 - Dysphagia, unspecified (10) Proteus mirabilis infection Status: Acute Category: Medical Code(s): A49.8 - Other bacterial infections of unspecified site The patient's infection will respond to the chosen ABx?: Yes Is the patient receiving the right drug, dose, and route?: Yes Could a more targeted ABx be ordered?: No (PROTEUS SENSITIVE TO ROCEPHIN)
[2020-11-09 12:47] LABS: POC Glucose,Bedside 94 (70-110)
--- NOTE | 2020-11-09 15:22 | ECG_ITS ---
APPROVED REPORT Exam: Resting ECG HR:160 bpm ECG Measurements Heart Rate 160 AXES QRSd 74 QRS 41 QT 246 T 211 QTc 401 Conclusion Atrial fibrillation with rapid ventricular response Posterior infarct, age undetermined ST & T wave abnormality, consider inferolateral ischemia or digitalis effect Abnormal ECG Electronically signed by : Jean Solorio, 11/14/2020 14:31:56
--- NOTE | 2020-11-09 15:29 | PC.NURSE ---
This RN paged Dr. Kennedy physician surgeon for Dr. Hughes. EKG done @ 1521 r/t irregular fast hr. Ekg shows afib with RVR 160 bpm. BP stable. RR 28. Awaiting cb
--- NOTE | 2020-11-09 16:00 | PC.NURSE ---
this RN took over care as pt is now in SD room [id number]
--- NOTE | 2020-11-09 17:05 | PC.NURSE ---
Dr. Kennedy returned call and gave orders per jun. Also, ordered for pt to be moved to step down. Report given to Kayy Vega RN. Dr. Kennedy stated placing a pascual was ok for accurate u/o. Pt was moved to sd at approx 1545.
--- NOTE | 2020-11-09 17:33 | PC.NURSE ---
1620: Cardizem 15mg IV given 1640: Cardizem 20mg IV given secondary to Afib with rate 170s 1642: Cardizem gtt started @ 10mg/hr. Afib continues with rate 160s 1700: Cardizem gtt increased to 15mg/hr secondary to Afib with rate 170s 1730: Cardizem gtt increased to 20mg/hr secondary to Afib with rate 150s 1635: Lasix 40mg IV given by Babatunde Gallardo RN
--- NOTE | 2020-11-09 17:55 | PC.NURSE ---
contacted Dr. Kennedy regarding Afib with continued rate 150-170s despite Cardizem IV. He ordered to give Digoxin 0.5mg IV x 1 dose. Order faxed to oncall pharmacy
[2020-11-09 18:07] LABS: Microscopic, Urine URINE MICROSCOPIC (MICROSCOPIC)
[2020-11-09 18:12] LABS: Appearance,Urine CLEAR (Clear); Bilirubin,Urine Negative (Negative); Blood, Urine 2+ (Negative); Color,Urine YELLOW (Yellow); Glucose,Urine (UA) Negative (Negative); Ketones,Urine 1+ (Negative); Leukocyte Esterase,Urine TRACE (Negative); Nitrate,Urine Negative (Negative); Protein,Urine 2+ (Negative); Specific Gravity, Urine 1.025 (1.005-1.030); Urobilinogen,Urine 0.2 EU/dl (0.2)
[2020-11-09 18:28] LABS: Bacteria,Urine Trace /lpf; RBC,Urine Occasional #/hpf (0-3); Squamous Epithelial Cell,Urine Occasional #/hpf (0-5)
--- NOTE | 2020-11-09 21:19 | PC.NURSE ---
2035- TITRATED CARDIZEM GTT 15 MG/HR FOR HR 80-115.
[2020-11-09 22:25] LABS: POC Glucose,Bedside 121 (70-110)
--- NOTE | 2020-11-09 23:58 | PC.NURSE ---
2235- TITRATED CARDIZEM GTT TO 10 MG/HR D/T HR 80-90
[2020-11-10] VITALS (21 sets, daily range): BP systolic 130–159; BP diastolic 53–94; PULSE 77–130; RESP 20–29; TEMP 36.4–37.9; O2SAT 92–95; BMI 22.5
[2020-11-10 01:57] LABS: POC Glucose,Bedside 136 (70-110)
[2020-11-10 06:28] LABS: POC Glucose,Bedside 118 (70-110)
--- NOTE | 2020-11-10 08:54 | XR_ITS ---
PROCEDURE INFORMATION: Exam: XR Chest Exam date and time: 11/10/2020 8:54 AM Age: 80 years old Clinical indication: Shortness of breath; Additional info: SOB TECHNIQUE: Imaging protocol: XR of the chest. Views: 1 view. COMPARISON: CR XR CHEST PORTABLE 11/08/2020 1:22 PM FINDINGS: Lungs: Stable diffuse increased interstitial markings with left lower lobe infiltrate/atelectasis. No new pulmonary processes are seen. Pleural spaces: Unremarkable. No pleural effusion. No pneumothorax. Heart/Mediastinum: Stable mild cardiomegaly. Vasculature: Stable aortic tortuosity Bones/joints: Unremarkable. Other findings: Stable mild degenerative IMPRESSION: Stable diffuse increased interstitial markings with left lower lobe infiltrate/atelectasis. No new pulmonary processes are seen.
--- NOTE | 2020-11-10 08:54 | HMH.ACPN2 ---
Internal Medicine - PN: Subj *Date: 11/11/20 *Time: 07:27 Interval history: pt with a fib last pm and on card drip Exam Vital signs and Labs for Last 24 Hours: Temp Pulse Resp BP Pulse Ox 98.0 F 109 H 22 130/57 L 94 L 11/10/20 07:48 11/10/20 07:48 11/10/20 07:48 11/10/20 07:48 11/10/20 07:48 Laboratory Results - last 24 hr 11/09/20 12:22: POC Glucose 94 11/09/20 15:54: POC Glucose 136 H 11/09/20 17:30: Urine Color Yellow, Urine Appearance Clear, Urine pH 6.0, Ur Specific [place] 1.025, Urine Protein 2+, Urine Glucose (UA) Negative, Urine Ketones 1+, Urine Blood 2+, Urine Nitrate Negative, Urine Bilirubin Negative, Urine Urobilinogen 0.2, Ur Leukocyte Esterase Trace, Urine RBC Occasional, Urine WBC 10-20, Ur Squamous Epith Cells Occasional, Urine Bacteria Trace 11/09/20 22:18: POC Glucose 121 H 11/10/20 06:21: POC Glucose 118 H I & O for Last 24 hours: Intake & Output 11/07/20 11/08/20 11/09/20 11/10/20 11:59 11:59 11:59 11:59 Intake Total 2348 / 2348 140 / 140 230 / 230 860 / 860 Output Total 2600 / 2600 1500 / 1500 500 / 500 1300 / 1300 Balance -252 / -252 -1360 / -1360 -270 / -270 -440 / -440 Weight 133 lb 3 oz 140 lb 0.2 oz 135 lb 0.5 oz 135 lb 2 oz - Constitutional no acute distress - *Routine HEENT Exam Head: Present: normocephalic Eye: Present: EOMI, PERRL ENT: Present: mucous membranes dry - *Routine Neck Exam Absent: JVD - *Routine Respiratory Exam Present: decreased breath sounds - *Routine Cardiovascular Exam Present: irregular rhythm - *Routine Abdominal Exam Present: soft - *Routine Extremities Exam Absent: calf tenderness - *Routine Skin Exam Absent: erythema - *Routine Neurological Exam Present: altered mental status - Routine Psychiatric Exam Present: unable to assess Assessment and Plan (1) UTI (urinary tract infection) Status: Acute Qualifiers: Urinary tract infection type: site unspecified Hematuria presence: without hematuria Qualified Code(s): N39.0 - Urinary tract infection, site not specified Category: Medical Code(s): N39.0 - Urinary tract infection, site not specified (2) History of breast cancer Status: Acute Category: Medical Code(s): Z85.3 - Personal history of malignant neoplasm of breast (3) UTI (urinary tract infection) Status: Acute Qualifiers: Urinary tract infection type: site unspecified Hematuria presence: without hematuria Qualified Code(s): N39.0 - Urinary tract infection, site not specified Category: Medical Code(s): N39.0 - Urinary tract infection, site not specified (4) CVA, old, cognitive deficits Status: Chronic Category: Medical Code(s): I69.319 - Unspecified symptoms and signs involving cognitive functions following cerebral infarction (5) Diabetes mellitus, type II Status: Chronic Qualifiers: Diabetes mellitus meterman insulin use: without halfway use Diabetes mellitus complication status: without complication Qualified Code(s): E11.9 - Type 2 diabetes mellitus without complications Category: Medical Code(s): E11.9 - Type 2 diabetes mellitus without complications (6) Hemiparesis affecting dominant side as late effect of cerebrovascular accident Status: Chronic Category: Medical Code(s): I69.359 - Hemiplegia and hemiparesis following cerebral infarction affecting unspecified side (7) History of CVA (cerebrovascular accident) Status: Chronic Category: Medical Code(s): Z86.73 - Personal history of transient ischemic attack (TIA), and cerebral infarction without residual deficits (8) Right hemiparesis Status: Chronic Category: Medical Code(s): G81.91 - Hemiplegia, unspecified affecting right dominant side (9) Dysphagia Status: Acute Qualifiers: Dysphagia type: unspecified Qualified Code(s): R13.10 - Dysphagia, unspecified Category: Medical Code(s): R13.10 - Dysphagia, unspecified (10) Proteus mirabilis infection
[2020-11-10 10:03] LABS: Basophils % 0.2 % (0.1-2.0); Eosinophils # 0.3 K/mm3 (0.0-0.4); Eosinophils % 1.7 % (0.1-12.0); Hematocrit 31.7 % (37.0-47.0); Hemoglobin 10.3 g/dL (12.2-16.2); Lymphocytes # 1.5 K/mm3 (0.7-4.5); Lymphocytes % 9.3 % (10-50); Mean Corpuscular HGB Conc 32.6 g/dL (31.8-35.4); Mean Corpuscular Hemoglobin 35.1 pg (27.0-31.2); Mean Corpuscular Volume 107.5 fl (81-99); Mean Platelet Volume 9.6 fl (7.4-10.4); Monocytes # 0.5 K/mm3 (0.1-1.0); Neutrophils # 13.4 K/mm3 (1.8-7.8); Neutrophils % 85.8 % (37.0-80.0); Platelet Count 102 K/mm3 (142-424); Red Blood Count 2.95 M/mm3 (4.20-5.40); Red Cell Distribution Width 14.4 % (11.5-17.5); White Blood Count 15.6 K/mm3 (4.8-10.8)
[2020-11-10 10:09] LABS: MANUAL DIFFERENTIAL MANUAL DIFFERENTIAL (MANUAL DIFF)
[2020-11-10 10:20] LABS: Lymphocytes % 6 % (10-50); Monocytes % 4 % (2-9); Neutrophils % 90 % (42-76); Platelet Estimate Normal; Total Cells Counted 100
[2020-11-10 10:21] LABS: Hypochromasia 1+; Macrocytosis 3+
[2020-11-10 11:48] LABS: Blood Urea Nitrogen 20 mg/dl (7-17); Calcium 8.2 mg/dl (8.4-10.2); Carbon Dioxide 16 mmol/L (22.0-30.0); Chloride 115 mmol/L (98-107); Creatinine Clearance Estimated 29 mL/min (50-200); Estimated Glomerular Filt Rate 33 ml/min (>60); GFR (African American) 41 ML/MIN (>60); Glucose 112 mg/dl (74-100); Sodium 142 mmol/L (136-145)
[2020-11-10 11:49] LABS: Anion Gap 16.8 mEq/L (5-15)
[2020-11-10 11:50] LABS: Potassium 5.8 mmoL/L (3.5-5.1)
[2020-11-10 12:10] LABS: POC Glucose,Bedside 105 (70-110)
[2020-11-10 16:54] LABS: POC Glucose,Bedside 109 (70-110)
--- NOTE | 2020-11-10 18:36 | PC.NURSE ---
daughter, Stacie, updated by phone
[2020-11-11] VITALS (16 sets, daily range): BP systolic 103–166; BP diastolic 46–98; PULSE 87–120; RESP 16–28; TEMP 36.8–37.4; O2SAT 90–95; BMI 22.4
[2020-11-11 00:06] LABS: POC Glucose,Bedside 115 (70-110)
--- NOTE | 2020-11-11 03:55 | PC.NURSE ---
pt. continued on cardizem gtt at 10 mg/hr with hr 80-100 while sleeping and 90-120 while awake.
[2020-11-11 06:02] LABS: POC Glucose,Bedside 127 (70-110)
--- NOTE | 2020-11-11 08:00 | CA_ITS ---
APPROVED REPORT EXAM: Comprehensive 2D, Doppler, and color-flow Echocardiogram Pipe Fitter Helper: Lynn Mane CRT Ht: 5 ft 4 in Wt: 135lbs BSA: 1.66 BP: 112/74 mmHg Indications: CVA I63.59, Hypertension I10, Atrial Fibrillation I48.0, CAD I25.10, DNI, UTI, GERD, Stent, Hx of breast CA, Uncooperative due to old CVA, combative, limited images 2D Dimensions LVOT 1.59 cm (M/F) 1.5-2.5 M-Mode Dimensions RVDd 2.67 cm (0.9-2.6) LA Diam 4.67 cm (1.9-4.0) LVDd 3.40 cm (3.5-5.7) Ao Diam 2.94 cm (2.0-3.7) LVDs 2.37 cm (3.5-5.7) IVSd 1.84 cm (0.6-1.1) PWd 1.17 cm (0.6-1.1) EF (Teich) 58.90% FS 30.30% EDV (Teich) 47.40 mL ESV (Teich) 19.50 mL Aortic Valve AO Peak GR. 8.00 mmHg Tricuspid Valve TR P. Velocity 302.00 cm/s RAP Estimate 10.00 mmHg RVSP 46.50 mmHg Left Ventricle Technically very difficult and poor study, endocardial surfaces as well as the valvular structures are very poorly visualized. Left atrium is moderately enlarged, left ventricle is normal size, mild concentric left ventricular hypertrophy, visually estimated ejection fraction 35%, there appears to be moderate hypokinesis involving mid to distal septum anterior and apical wall. A repeat study with Definity contrast is recommended if clinically indicated. Diastolic parameters are inconclusive. Right Ventricle Right atrium and right ventricle moderately enlarged with normal contractility. Aortic Valve Aortic valve is thickened and calcified without Doppler evidence of aortic stenosis or aortic insufficiency. Mitral Valve Mitral valve has mitral calcification which extends into both anterior and posterior mitral leaflet, mitral inflow is not suggestive of mitral stenosis, there is mild mitral regurgitation. Tricuspid Valve Tricuspid valve is grossly normal, there is mild tricuspid regurgitation, calculated right ventricular systolic pressure is 46 mmHg. Pulmonic Valve Pulmonic valve is poorly visualized. Great Vessels Aortic root is normal size. Pericardium No significant pericardial effusion noted. Conclusion 1. Moderate biatrial enlargement, normal left ventricular size, mild concentric left ventricular hypertrophy, visually estimated ejection fraction approximately 35%, with multiple segmental wall motion abnormality described above, endocardial surfaces are very poorly visualized, repeat study with Definity contrast is recommended if clinically indicated, diastolic parameters are inconclusive. 2. Moderately enlarged right ventricle with normal contractility. 3. Thickened and calcified aortic valve without aortic stenosis or aortic insufficiency. 4. Mild mitral and tricuspid regurgitation, calculated right ventricular systolic pressure is 46 mmHg. 5. No significant pericardial effusion noted. Electronically signed by : Ferny Garcia, 11/11/2020 21:39:57
[2020-11-11 09:01] LABS: Basophils % 0.1 % (0.1-2.0); Eosinophils # 0.1 K/mm3 (0.0-0.4); Eosinophils % 0.3 % (0.1-12.0); Hematocrit 32.6 % (37.0-47.0); Hemoglobin 10.3 g/dL (12.2-16.2); Lymphocytes # 1.3 K/mm3 (0.7-4.5); Lymphocytes % 5.1 % (10-50); Mean Corpuscular HGB Conc 31.7 g/dL (31.8-35.4); Mean Corpuscular Hemoglobin 34.1 pg (27.0-31.2); Mean Corpuscular Volume 107.4 fl (81-99); Mean Platelet Volume 9.7 fl (7.4-10.4); Monocytes # 0.5 K/mm3 (0.1-1.0); Monocytes % 2.2 % (1.7-9.3); Neutrophils # 22.7 K/mm3 (1.8-7.8); Neutrophils % 92.3 % (37.0-80.0); Platelet Count 130 K/mm3 (142-424); Red Blood Count 3.03 M/mm3 (4.20-5.40); Red Cell Distribution Width 14.7 % (11.5-17.5); White Blood Count 24.5 K/mm3 (4.8-10.8)
[2020-11-11 09:04] LABS: MANUAL DIFFERENTIAL MANUAL DIFFERENTIAL (MANUAL DIFF)
[2020-11-11 09:08] LABS: Blood Urea Nitrogen 22 mg/dl (7-17); Calcium 8.8 mg/dl (8.4-10.2); Carbon Dioxide 16 mmol/L (22.0-30.0); Chloride 117 mmol/L (98-107); Creatinine Clearance Estimated 24 mL/min (50-200); Estimated Glomerular Filt Rate 27 ml/min (>60); GFR (African American) 33 ML/MIN (>60); Glucose 135 mg/dl (74-100); Sodium 145 mmol/L (136-145)
--- NOTE | 2020-11-11 09:30 | HMH.ACPN2 ---
Internal Medicine - PN: Subj *Date: 11/11/20 *Time: 08:45 Interval history: pt alert but ams, pt is not answering questions or respond when name is called. pt is not eating or drinking. spoke with daughter varsha araujo and grandson. at this time they want her to be a DNI after discussion. explained the processes of what the differance between DNR and DNI and she wanted to be a DNI. at this time family wants to try a ng tube feedings and no peg tube. will readdress if need be. Exam Vital signs and Labs for Last 24 Hours: Temp Pulse Resp BP Pulse Ox 99.4 F 110 H 24 135/91 H 90 L 11/11/20 04:00 11/11/20 08:00 11/11/20 04:00 11/11/20 06:00 11/11/20 06:00 Laboratory Results - last 24 hr 11/10/20 09:40: WBC 15.6 H D, RBC 2.95 L, Hgb 10.3 L, Hct 31.7 L, MCV 107.5 H, MCH 35.1 H, MCHC 32.6, RDW 14.4, Plt Count 102 L, MPV 9.6, Neut % (Auto) 85.8 H, Lymph % (Auto) 9.3 L, [place] % (Auto) 3.0, Eos % (Auto) 1.7, Baso % (Auto) 0.2, Neut # (Auto) 13.4 H, Lymph # (Auto) 1.5, [place] # (Auto) 0.5, Eos # (Auto) 0.3, Baso # (Auto) 0.0, Total Counted 100, Neutrophils % (Manual) 90 H, Lymphocytes % (Manual) 6 L, Monocytes % (Manual) 4, Platelet Estimate Normal, Hypochromasia 1+, Macrocytosis 3+ 11/10/20 11:05: Sodium 142, Potassium 5.8 H D, Chloride 115 H, Carbon Dioxide 16 L, Anion Gap 16.8 H, BUN 20 H D, Creatinine 1.50 H, Estimated Creat Clear 29, Estimated GFR 33 L, Est GFR ( Amer) 41 L, Glucose 112 H, Calcium 8.2 L 11/10/20 11:57: POC Glucose 105 11/10/20 16:48: POC Glucose 109 11/10/20 23:49: POC Glucose 115 H 11/11/20 05:53: POC Glucose 127 H 11/11/20 08:48: WBC 24.5 H* D, RBC 3.03 L, Hgb 10.3 L, Hct 32.6 L, MCV 107.4 H, MCH 34.1 H, MCHC 31.7 L, RDW 14.7, Plt Count 130 L D, MPV 9.7, Neut % (Auto) 92.3 H, Lymph % (Auto) 5.1 L, [place] % (Auto) 2.2, Eos % (Auto) 0.3, Baso % (Auto) 0.1, Neut # (Auto) 22.7 H, Lymph # (Auto) 1.3, [place] # (Auto) 0.5, Eos # (Auto) 0.1, Baso # (Auto) 0.0 11/11/20 08:48: Sodium 145, Potassium 4.0 D, Chloride 117 H, Carbon Dioxide 16 L, Anion Gap 16.0 H, BUN 22 H, Creatinine 1.80 H, Estimated Creat Clear 24, Estimated GFR 27 L, Est GFR ( Amer) 33 L, Glucose 135 H D, Calcium 8.8 I & O for Last 24 hours: Intake & Output 11/08/20 11/09/20 11/10/20 11/11/20 11:59 11:59 11:59 11:59 Intake Total 140 / 140 230 / 230 860 / 860 480 / 480 Output Total 1500 / 1500 500 / 500 1300 / 1300 500 / 500 Balance -1360 / -1360 -270 / -270 -440 / -440 -20 / -20 Weight 140 lb 0.2 oz 135 lb 0.5 oz 135 lb 2 oz 134 lb 4 oz Microbiology Reports for the Last 24 Hours: Microbiology 11/06/20 00:14 Blood Blood Culture - Final NO GROWTH AFTER 5 DAYS 11/09/20 17:30 Urine,Catheterized Urine Culture - Preliminary NO GROWTH AFTER 24 HOURS - Constitutional no acute distress, chronically ill appearing - *Routine HEENT Exam Head: Present: normocephalic Eye: Present: PERRL ENT: Present: mucous membranes moist - *Routine Neck Exam Present: supple. Absent: lymphadenopathy - *Routine Respiratory Exam Present: decreased breath sounds, rhonchi, crackles - *Routine Cardiovascular Exam Present: irregular rhythm - *Routine Abdominal Exam Present: soft, normoactive bowel sounds. Absent: tenderness - *Routine Extremities Exam Present: normal capillary refill. Absent: cyanosis, clubbing, edema - *Routine Skin Exam Present: warm. Absent: rash - *Routine Neurological Exam Present: alert - Routine Psychiatric Exam Present: normal affect Assessment and Plan (1) UTI (urinary tract infection) Status: Acute Qualifiers: Urinary tract infection type: site unspecified Hematuria presence: without hematuria Qualified Code(s): N39.0 - Urinary tract infection, site not specified Category: Medical Code(s): N39.0 - Urinary tract infection, site not specified (2) History of breast cancer Status: Acute Category: Medical Code(s): Z85.3 - Personal his
[2020-11-11 09:39] LABS: Eosinophils % 2 % (0-3); Lymphocytes % 8 % (10-50); Monocytes % 1 % (2-9); Neutrophils % 84 % (42-76); Total Cells Counted 100
[2020-11-11 09:40] LABS: Hypochromasia 2+; Macrocytosis 2+; Platelet Estimate Normal
--- NOTE | 2020-11-11 10:13 | XR_ITS ---
PROCEDURE: XR CHEST PORTABLE PICC PLAC CLINICAL HISTORY: Confirm PICC line placement COMPARISON: CT CT CHEST WO CON from 01/26/2020 CR XR CHEST PORTABLE from 11/07/2020 CR XR CHEST PORTABLE from 11/08/2020 CR XR CHEST PORTABLE from 11/10/2020 FINDINGS: The right subclavian PICC line is noted extending cranially with its tip overlies the jugular vein. Mild cardiomegaly is noted. Central pulmonary vascular prominence is noted. No significant interval change. Bibasal atelectasis. Background of minor chronic interstitial changes. No lobar consolidation or pneumothorax. Tortuous descending thoracic aorta is noted. Surgical clips in the left axilla at. Degenerative changes of the thoracic spine noted. IMPRESSION: Subclavian PICC line tip extends cranially, likely overlies the jugular vein. Repositioning is recommended. Dictated by: Flor Aguilar 11/11/2020 12:13 Flor Aguilar in OV 11/11/2020 12:13
--- NOTE | 2020-11-11 10:20 | PC.NURSE ---
upon assessment noted patient iv was infiltrated. redness and swelling noted. unable to get cardizem. notifed jitendra liang. picc line ordered. family at bedside educated on plan of paco
--- NOTE | 2020-11-11 10:58 | DIET.NUTRFU ---
Addendum entered by Chiquis Alberts 11/13/20 14:04: Pt has continued to refuse all nourishment. She does now meet criteria for acute severe malnutrition with loss of 4% BW and PO intakes 0-5% of EER in past 7 days. Family had hospice consult today. Continuing to monitor care plans/families wishes to provide MNT as appropriate. Addendum entered by Chiquis Alberts 11/11/20 12:57: Pt's family has decided not to initiate tube feedings at this time. Will continue to offer dysphagia diet per CLINICAL REHABILITATION COORDINATOR with protein fortification as tolerated, pt has eaten 5-10% of about half her meals. Please provide assistance and encourage/cue at meal times, observing aspiration precautions. Original Note: Nutritional consult to initiate enteral nutrition received/completed. Pt with AMS, unable to tolerate PO intake. She is diabetic with moderate BG wnl-140. She is a healthy weight, with dysphagia but eating normally at VT up until this admission. Today is day 6 of minimal PO intake, putting pt at risk refeeding syndrome. Electrolytes are wnl, HBR=797. Recommend slow and low advancement of NG feedings Glucerna 1.0. Recommend initiating tube feedings of Glucerna 1.0 at 20ml/hr and advancing by 10ml/hr q 8hr as tolerated to goal rate of 60ml/hr. Water flushes of 155ml q 6hr meet additional fluid needs not provided by formula. This regimen provides 1380kcal, 58g protein, 132g carbohydrate, 75g fat, and 1177ml free water (1800ml total fluids with flushes). Will monitor to alter nutritional care plan as indicated.
--- NOTE | 2020-11-11 12:23 | HMH.CNCARD ---
History of Present Illness Consult date: 11/11/20 Requesting physician: Wiliam Hughes Consult reason: atrial fibrillation Chief complaint: afib History of present illness: This is a 80-year-old white female who presented to the emergency department here [facility] for altered mental status and was found to have a UTI. The patient has been in the hospital getting treated for her UTI. She subsequently went into atrial fibrillation with RVR. She has been started on a diltiazem drip and remains in atrial fibrillation at this time. Her heart rate still remains a little elevated this morning. The patient has had some changes in her level of consciousness since being here in the hospital. Today the patient is not answering any questions or following any commands. She does open her eyes when I say her name but she is not looking at me and she is not answering any questions at all. Her grandson is at her bedside today and states that she is not answering for him either. The family has just decided to make the patient a DNR and they have also decided not to place the NG tube for feedings at this time. The patient appears to be in no distress. Her vital signs are stable this morning except for her heart rate being on the higher side. [facility] History I have reviewed the patient's past medical history: Yes Medical History: Reports:: Arrhythmia, Atherosclerotic Heart Disease, Atrial Fibrillation, Cancer, Chronic Obstructive Pulmonary Disease (COPD), Coronary Artery Disease, Cerebrovascular Accident, Depression, Diabetes Mellitus Type 2, Gastroesophageal Reflux Disease(GERD), Hyperlipidemia, Hypertension, Lung Disease, Renal Insufficiency Denies:: Diabetes Mellitus Type 1, Internal Pacemaker, MRSA, Seizures *Have you ever received a pneumonia vaccine?: No (AMS) *Have you received a flu vaccine this season?: No (AMS) Other Medical History: Reports: Anemia, Arthritis, Cataracts, Other Laterality Cases: Left: Breast Biopsy, Lumpectomy, Total Hip Replacement Other Surgeries: Yes: Cardiac Catheterization, Cholecystectomy, Coronary Stent, Hysterectomy-Total. No: Pacemaker Amputation: No Fractures: Yes - *Social History Smoking Status: Never smoker Tobacco Type: cigarettes # Packs/Day (cigarettes): 1 #Yrs smoked (if former smoker): 60 Alcohol Intake: never *Occupational Status:: disabled Housing: longterm Household Members: family *Travel in the last 8 weeks: None - Psychiatric History Pschychiatric History:: Reports:: Depression Family Hx:: Unable to obtain Meds Home Medications Medication Instructions Recorded Confirmed Type atenoloL [Atenolol 50mg Tab] 50 mg PO DAILY 09/15/17 11/06/20 History omeprazole 40 mg capsule,delayed 40 mg PO DAILY 10/05/17 11/06/20 History release Ferrous Sulfate [Ferrous Sulfate 325 mg PO DAILY 12/17/17 11/06/20 History 325mg Tablet] Spironolactone [Aldactone 25mg 12.5 mg PO DAILY 12/20/17 11/06/20 History Tab] loratadine 10 mg tablet 10 mg PO DAILY 05/10/18 11/06/20 History sertraline 25 mg tablet 12.5 mg PO DAILY 05/10/18 11/06/20 History tamoxifen 20 mg tablet 20 mg PO DAILY 05/10/18 11/06/20 History ursodiol 300 mg capsule 300 mg PO BID 05/10/18 11/06/20 History cyanocobalamin (vitamin B-12) 1,000 mcg PO DAILY 01/09/19 11/06/20 History 1,000 mcg capsule ascorbic acid (vitamin C) 500 mg 500 mg PO DAILY 06/12/19 11/06/20 History capsule Acetaminophen 1,000 mg PO Q8HP PRN 01/27/20 11/06/20 History Cyclobenzaprine HCl 5 mg PO DAILYP PRN 01/27/20 11/06/20 History [Cyclobenzaprine 5mg Tab*] Aspirin [Aspirin 325mg Tab] 325 mg PO DAILY 30 Days #30 tab 01/29/20 11/06/20 Rx Verapamil HCl 40 mg PO TID 11/06/20 11/06/20 History Allergies Allergy/AdvReac Type Severity Reaction Status Date / Time cephalexin [CEPHALEXIN] Allergy Mild Unknown Verified 06/11/20 16:14 allergy reaction metformin [METFORMIN] Allergy Mild Unknown Verified 06/11/20 16:14 allergy
--- NOTE | 2020-11-11 12:24 | XR_ITS ---
PROCEDURE: XR CHEST PORTABLE CLINICAL HISTORY: picc line placement COMPARISON: No exams were available for comparison FINDINGS: Right subclavian PICC line is noted with its tip projecting over the proximal SVC/brachiocephalic vein confluence. Bibasal atelectasis with minor chronic interstitial changes are again noted. No lobar consolidation, pleural effusions or pneumothorax. Heart mild cardiomegaly with central pulmonary vascular congestion. Vascular calcification is noted. Degenerative changes of the visualized thoracic spine noted. IMPRESSION: Right subclavian PICC line is in satisfactory position. Bibasilar atelectasis with minor chronic interstitial changes. Dictated by: Flor Aguilar 11/11/2020 12:44 Flor Aguilar in OV 11/11/2020 12:44
--- NOTE | 2020-11-11 13:37 | PC.NURSE ---
education done with family about plan of care and options. family currently refusing tube feeds and ng tube placement. patient is now a dnr. spoke with them about options and addressed any needs and questions with family
--- NOTE | 2020-11-11 13:59 | PC.NURSE ---
once picc was confirmed patient placed back on cardizem at 10mg/hr per ablack base loader order. noted that heart rate was starting to drop down as low as 60 so at this time decreased to 5mg/hr. will reassess
[2020-11-11 15:02] LABS: POC Glucose,Bedside 144 (70-110)
--- NOTE | 2020-11-11 16:08 | PC.NURSE ---
since morphine patient has slept this shift. refusing to take anything by mouth. family has been at bedside off and on. has picc in r upper arm and a 24 to l forearm placed today. cardizem still currently at 5mg/hr noted to have heart rate of 80s-low 100s. noted to at times have drops lower and higher. still remains on room air. [id number]. report given to harrison canseco. no more moaning or signs of pain at this time. redness to l upper arm from infiltrate and small skin tears noted to l forearm. vitals stable.
--- NOTE | 2020-11-11 18:42 | PC.NURSE ---
Addendum entered by Jennie Rosales RN 11/11/20 18:44: this titration occurred at 1800 Original Note: cardizem titrated to 10 mg/hr at this time. HR has been maintaining 100-120
--- NOTE | 2020-11-11 20:53 | PC.WOUNDNOTE ---
NOTE: LATE ENTRY FOR 11/09/20 SKIN TEAR TO RH 6CM X 1.5 CM WITH SANGUINEOUS DRAINAGE. TWO SKIN TEARS NOTED TO L ELBOW WITH MINIMAL SEROSANGUINEOUS DRAINAGE. 1CM X 1 CM SCATTERED BRUISING TO LUE REDDISH PURPLE IN COLOR.
[2020-11-11 21:22] LABS: POC Glucose,Bedside 118 (70-110)
--- NOTE | 2020-11-11 21:33 | PC.NURSE ---
Patients left hand dressing was noted to have small amount of drainage. Dressing was changed and is clean dry and intact.
[2020-11-12] VITALS (31 sets, daily range): BP systolic 102–154; BP diastolic 43–79; PULSE 56–132; RESP 18–20; TEMP 36.3–36.8; O2SAT 91–98; BMI 21.7
--- NOTE | 2020-11-12 | IR_ITS ---
APPROVED REPORT Patient Location: Inpatient [place] Machine Operator: DEAN Carlson RT (R) PROCEDURES Left heart catheterization Left ventriculogram Selective coronary angiogram Direct-current cardioversion INDICATION Systolic congestive heart failure, Abnormal echocardiogram with regional wall motion abnormality, Atrial fibrillation Informed consent was obtained prior to the procedure. COMPLICATIONS None Estimated Blood Loss: Less than 10 mls TECHNIQUE One percent lidocaine used to anesthetize the right anterior aspect of the wrist. The right radial artery was accessed via the Seldinger technique. A 6 Pashto sheath was placed in the right radial artery. 2.5 mg of verapamil, 800 mcg of nitroglycerin, 1mg Lidocaine and 5000 U Heparin were given through the arterial sheath. The [place] catheter was also used to perform left heart catheterization, left ventriculogram and selective coronary angiogram. At the end the diagnostic procedure patient was given additional sedation and 50 J of synchronized current was applied successfully converting patient into sinus rhythm. At the end of the procedure the sheath was removed good hemostasis was achieved using Traclet band, patient was transferred to the postop holding area in stable condition. ANGIOGRAPHIC RESULTS The left main artery Normal The left anterior descending artery Is a large vessel with proximal and mid vessel mild 10 to 20% stenoses The circumflex artery Is a large dominant vessel with diffuse 10 to 20% stenoses The right coronary artery Small nondominant normal The BENOIT ventriculogram reveals Reduced ejection fraction at 40% The left ventricular end-diastolic pressure 15 mmHg IMPRESSION Mild nonflow limiting coronary disease Atrial fibrillation successfully converted to sinus rhythm with 50 J of synchronized electricity Reduced ejection fraction Borderline elevated LVEDP PLAN 1. Continue with amiodarone 2. Anticoagulation if patient is believed to be an appropriate candidate 3. Standard of care therapy to be arranged by primary care physician and cardiology team Electronically signed by : Mirza Francisco, 11/12/2020 15:22:47
--- NOTE | 2020-11-12 00:43 | PC.NURSE ---
Patient is not alert at this time. Patient still remains sedated at this time. No signs of discomfort or pain. Patient turned Q2 hours. Patient has adequate urine output. Patient still remains on cardiazem drip with heart rates around 100-105 at rest. VSS. Patient remains on room air. No further concerns observed by RN.
[2020-11-12 02:52] LABS: POC Glucose,Bedside 112 (70-110)
[2020-11-12 06:34] LABS: Anion Gap 15.2 mEq/L (5-15); Blood Urea Nitrogen 27 mg/dl (7-17); Calcium 8.4 mg/dl (8.4-10.2); Carbon Dioxide 21 mmol/L (22.0-30.0); Chloride 115 mmol/L (98-107); Creatinine Clearance Estimated 24 mL/min (50-200); Estimated Glomerular Filt Rate 27 ml/min (>60); GFR (African American) 33 ML/MIN (>60); Glucose 112 mg/dl (74-100); Potassium 3.2 mmoL/L (3.5-5.1); Sodium 148 mmol/L (136-145)
[2020-11-12 06:40] LABS: Basophils % 0.2 % (0.1-2.0); Eosinophils # 0.2 K/mm3 (0.0-0.4); Eosinophils % 1.2 % (0.1-12.0); Hematocrit 28.9 % (37.0-47.0); Hemoglobin 9.4 g/dL (12.2-16.2); Lymphocytes # 1.9 K/mm3 (0.7-4.5); Lymphocytes % 13.4 % (10-50); Mean Corpuscular HGB Conc 32.6 g/dL (31.8-35.4); Mean Corpuscular Hemoglobin 34.6 pg (27.0-31.2); Mean Platelet Volume 9.9 fl (7.4-10.4); Monocytes # 0.4 K/mm3 (0.1-1.0); Monocytes % 2.7 % (1.7-9.3); Neutrophils % 82.5 % (37.0-80.0); Platelet Count 102 K/mm3 (142-424); Red Blood Count 2.72 M/mm3 (4.20-5.40); Red Cell Distribution Width 14.9 % (11.5-17.5); White Blood Count 14.6 K/mm3 (4.8-10.8)
--- NOTE | 2020-11-12 08:37 | HMH.ACPN2 ---
Internal Medicine - PN: Subj *Date: 11/12/20 *Time: 09:57 Interval history: 80-year-old female patient resting in bed quietly will awaken to tactile stimuli. Is nonverbal, unresponsive to any questions, in no apparent distress. She is now a DNR and the family has decided against placing a NG tube for feedings. The family stated that they will readdress her situation after 24 hours to see if there is any improvement Exam Vital signs and Labs for Last 24 Hours: Temp Pulse Resp BP Pulse Ox 97.3 F L 112 H 20 119/57 L 93 L 11/12/20 08:00 11/12/20 06:36 11/12/20 04:00 11/12/20 06:00 11/12/20 06:00 Laboratory Results - last 24 hr 11/11/20 08:48: WBC 24.5 H* D, RBC 3.03 L, Hgb 10.3 L, Hct 32.6 L, MCV 107.4 H, MCH 34.1 H, MCHC 31.7 L, RDW 14.7, Plt Count 130 L D, MPV 9.7, Neut % (Auto) 92.3 H, Lymph % (Auto) 5.1 L, [place] % (Auto) 2.2, Eos % (Auto) 0.3, Baso % (Auto) 0.1, Neut # (Auto) 22.7 H, Lymph # (Auto) 1.3, [place] # (Auto) 0.5, Eos # (Auto) 0.1, Baso # (Auto) 0.0, Total Counted 100, Neutrophils % (Manual) 84 H, Band Neutrophils % 3.0, Lymphocytes % (Manual) 8 L, Atypical Lymphs % 1.0, Monocytes % (Manual) 1 L, Eosinophils % (Manual) 2, Basophils % (Manual) 1.0, Platelet Estimate Normal, Hypochromasia 2+, Macrocytosis 2+ 11/11/20 08:48: Sodium 145, Potassium 4.0 D, Chloride 117 H, Carbon Dioxide 16 L, Anion Gap 16.0 H, BUN 22 H, Creatinine 1.80 H, Estimated Creat Clear 24, Estimated GFR 27 L, Est GFR ( Amer) 33 L, Glucose 135 H D, Calcium 8.8 11/11/20 14:53: POC Glucose 144 H 11/11/20 20:46: POC Glucose 118 H 11/12/20 02:44: POC Glucose 112 H 11/12/20 05:10: WBC 14.6 H D, RBC 2.72 L, Hgb 9.4 L, Hct 28.9 L, MCV 106.0 H, MCH 34.6 H, MCHC 32.6, RDW 14.9, Plt Count 102 L, MPV 9.9, Neut % (Auto) 82.5 H, Lymph % (Auto) 13.4, [place] % (Auto) 2.7, Eos % (Auto) 1.2, Baso % (Auto) 0.2, Neut # (Auto) 12.0 H, Lymph # (Auto) 1.9, [place] # (Auto) 0.4, Eos # (Auto) 0.2, Baso # (Auto) 0.0 11/12/20 05:10: Sodium 148 H, Potassium 3.2 L, Chloride 115 H, Carbon Dioxide 21 L D, Anion Gap 15.2 H, BUN 27 H, Creatinine 1.80 H, Estimated Creat Clear 24, Estimated GFR 27 L, Est GFR ( Amer) 33 L, Glucose 112 H, Calcium 8.4 I & O for Last 24 hours: Intake & Output 11/09/20 11/10/20 11/11/20 11/12/20 23:59 23:59 23:59 23:59 Intake Total 920 / 920 420 / 480 186 / 186 98.9 / 98.9 Output Total 1100 / 1100 700 / 700 1350 / 1350 Balance -180 / -180 -280 / -220 -1164 / -1164 98.9 / 98.9 Weight 135 lb 0.5 oz 135 lb 2 oz 134 lb 4 oz 130 lb 6 oz Microbiology Reports for the Last 24 Hours: Microbiology 11/09/20 17:30 Urine,Catheterized Urine Culture - Final NO GROWTH AFTER 48 HOURS 11/06/20 00:14 Blood Blood Culture - Final NO GROWTH AFTER 5 DAYS - Constitutional no acute distress, thin, chronically ill appearing - *Routine HEENT Exam Head: Present: normocephalic Eye: Present: EOMI ENT: Present: mucous membranes dry - *Routine Neck Exam Present: trachea midline. Absent: tracheal deviation - *Routine Respiratory Exam Present: CTA bilaterally. Absent: accessory muscle use - *Routine Cardiovascular Exam Present: irregularly irregular - *Routine Abdominal Exam Present: soft, normoactive bowel sounds. Absent: distended, firm - *Routine Extremities Exam Present: pulses intact. Absent: cyanosis, clubbing - *Routine Skin Exam Present: dry, warm - *Routine Neurological Exam Present: altered mental status. Absent: alert, oriented X3 - Routine Psychiatric Exam Present: unable to assess. Absent: normal affect, normal thought process Assessment and Plan (1) Atrial fibrillation Status: Acute Qualifiers: Atrial fibrillation type: unspecified Qualified Code(s): I48.91 - Unspecified atrial fibrillation Category: Medical Code(s): I48.91 - Unspecified atrial fibrillation (2) UTI (urinary tract infection) Status: Acute Qualifiers: U
--- NOTE | 2020-11-12 10:30 | HMH.PNCARD ---
Subjective Date: 11/12/20 Time: 10:20 Principal diagnosis: afib with rvr Interval history: This is a 80-year-old white female who presented to the emergency department with altered mental status and was found to have a UTI. This morning the patient is awake when I walk into the room. She is answering yes and no questions sometimes by shaking her head. She is still not communicating with me verbally She is not following any commands. I can only get her to answer some yes and no questions at times by shaking her head yes or no. She does not appear to be in any distress. She denied any chest pain or shortness of breath. She does feel her heart racing. She denied any chills, nausea, or vomiting. Those are the only questions that I can get her to answer. She does shake her head yes when her grandson asked her if she was thirsty and hungry. Exam Vital signs and Labs for Last 24 Hours: Temp Pulse Resp BP Pulse Ox 97.3 F L 110 H 20 119/57 L 93 L 11/12/20 08:00 11/12/20 09:15 11/12/20 04:00 11/12/20 06:00 11/12/20 06:00 Laboratory Results - last 24 hr 11/11/20 14:53: POC Glucose 144 H 11/11/20 20:46: POC Glucose 118 H 11/12/20 02:44: POC Glucose 112 H 11/12/20 05:10: WBC 14.6 H D, RBC 2.72 L, Hgb 9.4 L, Hct 28.9 L, MCV 106.0 H, MCH 34.6 H, MCHC 32.6, RDW 14.9, Plt Count 102 L, MPV 9.9, Neut % (Auto) 82.5 H, Lymph % (Auto) 13.4, [place] % (Auto) 2.7, Eos % (Auto) 1.2, Baso % (Auto) 0.2, Neut # (Auto) 12.0 H, Lymph # (Auto) 1.9, [place] # (Auto) 0.4, Eos # (Auto) 0.2, Baso # (Auto) 0.0 11/12/20 05:10: Sodium 148 H, Potassium 3.2 L, Chloride 115 H, Carbon Dioxide 21 L D, Anion Gap 15.2 H, BUN 27 H, Creatinine 1.80 H, Estimated Creat Clear 24, Estimated GFR 27 L, Est GFR ( Amer) 33 L, Glucose 112 H, Calcium 8.4 I & O for Last 24 hours: Intake & Output 11/09/20 11/10/20 11/11/20 11/12/20 23:59 23:59 23:59 23:59 Intake Total 920 / 920 420 / 480 186 / 186 98.9 / 98.9 Output Total 1100 / 1100 700 / 700 1350 / 1350 Balance -180 / -180 -280 / -220 -1164 / -1164 98.9 / 98.9 Weight 135 lb 0.5 oz 135 lb 2 oz 134 lb 4 oz 130 lb 6 oz Microbiology Reports for the Last 24 Hours: Microbiology 11/09/20 17:30 Urine,Catheterized Urine Culture - Final NO GROWTH AFTER 48 HOURS 11/06/20 00:14 Blood Blood Culture - Final NO GROWTH AFTER 5 DAYS Narrative: Telemetry strip shows atrial fibrillation with a rate of 130. echo shows: 1. Moderate biatrial enlargement, normal left ventricular size, mild concentric left ventricular hypertrophy, visually estimated ejection fraction approximately 35%, with multiple segmental wall motion abnormality described above, endocardial surfaces are very poorly visualized, repeat study with Definity contrast is recommended if clinically indicated, diastolic parameters are inconclusive. 2. Moderately enlarged right ventricle with normal contractility. 3. Thickened and calcified aortic valve without aortic stenosis or aortic insufficiency. 4. Mild mitral and tricuspid regurgitation, calculated right ventricular systolic pressure is 46 mmHg. 5. No significant pericardial effusion noted. - Constitutional no acute distress, average body habitus - *Routine HEENT Exam Head: Present: normocephalic, atraumatic Eye: Present: EOMI, PERRL ENT: Present: mucous membranes moist - *Routine Neck Exam Present: supple, full ROM, normal carotid upstroke. Absent: JVD, carotid bruit, lymphadenopathy - *Routine Respiratory Exam Present: rales, rhonchi - *Routine Cardiovascular Exam Present: Normal S1, Normal S2, tachycardia, irregularly irregular. Absent: murmur - *Routine Abdominal Exam Present: soft, normoactive bowel sounds. Absent: tenderness, distended - *Routine Extremities Exam Present: pulses intact, normal capillary refill. Absent: cyanosis, clubbing, edema - *Routine Skin Exam Present: intact, warm. Absent: rash
--- NOTE | 2020-11-12 13:45 | PC.NURSE ---
1258 obtained telephone consent from POA Stacie Watt. Ok for pt to have heart cath. verfied with Chapo Ronquillo RN Cardioversion was addressed with the POA, but consent was not obtained for this procedure r/t physician/delegate have not discussed it with the pt.
--- NOTE | 2020-11-12 15:05 | PC.NURSE ---
both pupils are noted to be tear drop shaped and at an oblique angle. dr Hughes made aware during am rounds. states prior eye surgery. pt feet noted to be cool and mottled on bottoms of feet
--- NOTE | 2020-11-12 16:22 | PC.NURSE ---
pt mentation is the same before and after procedure. she does not follow commands, eyes are open towards the ceiling.
[2020-11-12 17:29] LABS: POC Glucose,Bedside 121 (70-110)
--- NOTE | 2020-11-12 18:57 | PC.NURSE ---
received in report at 1600 that pt has 20ml of air in TR band 1730 18ml 1745 16ml 1800 14ml 1815 12ml 1830 10ml 1850 8ml
--- NOTE | 2020-11-12 19:14 | PC.NURSE ---
Amio drip rate changed to 16.7ml/hr at this time
[2020-11-12 20:26] LABS: POC Glucose,Bedside 109 (70-110)
--- NOTE | 2020-11-12 20:44 | PC.NURSE ---
She is total care. No speech. She opens her eyes spontaneously. She does not follow commands. No signs of pain or distress. She is being turned and repositioned q 2 hours. Oral care provided. F/c patent with yellow, clear drainage. s/p heart cath with right radial site. DSG is C/D/I.
[2020-11-13] VITALS (10 sets, daily range): BP systolic 97–196; BP diastolic 35–94; PULSE 78–100; RESP 18–22; TEMP 36.7–37.8; O2SAT 90–97; BMI 21.3
[2020-11-13 05:31] LABS: POC Glucose,Bedside 161 (70-110)
[2020-11-13 07:09] LABS: Anion Gap 17.1 mEq/L (5-15); Carbon Dioxide 24 mmol/L (22.0-30.0); Chloride 109 mmol/L (98-107); Potassium 3.1 mmoL/L (3.5-5.1); Sodium 147 mmol/L (136-145)
[2020-11-13 07:10] LABS: Alanine Aminotransferase 38 U/L (12-78); Albumin Level 3.9 g/dl (3.5-5.0); Alkaline Phosphatase 113 U/L (38-126); Aspartate Amino Transferase 74 U/L (14-36); Bilirubin,Direct 0.7 mg/dl (0.0-0.4); Bilirubin,Total 0.7 mg/dl (0.2-1.3); Total Protein,Serum 7.4 g/dl (6.3-8.2)
[2020-11-13 07:10] LABS: Blood Urea Nitrogen 27 mg/dl (7-17); Calcium 8.9 mg/dl (8.4-10.2); Creatinine Clearance Estimated 25 mL/min (50-200); Estimated Glomerular Filt Rate 29 ml/min (>60); GFR (African American) 35 ML/MIN (>60); Glucose 172 mg/dl (74-100)
[2020-11-13 07:21] LABS: Basophils # 0.1 K/mm3 (0-0.2); Basophils % 0.8 % (0.1-2.0); Eosinophils % 0.1 % (0.1-12.0); Hematocrit 32.7 % (37.0-47.0); Hemoglobin 10.6 g/dL (12.2-16.2); Lymphocytes # 0.6 K/mm3 (0.7-4.5); Lymphocytes % 3.5 % (10-50); Mean Corpuscular HGB Conc 32.4 g/dL (31.8-35.4); Mean Corpuscular Hemoglobin 34.1 pg (27.0-31.2); Mean Platelet Volume 10.9 fl (7.4-10.4); Monocytes # 0.3 K/mm3 (0.1-1.0); Neutrophils # 15.6 K/mm3 (1.8-7.8); Neutrophils % 93.6 % (37.0-80.0); Platelet Count 128 K/mm3 (142-424); Red Blood Count 3.11 M/mm3 (4.20-5.40); Red Cell Distribution Width 15.2 % (11.5-17.5); White Blood Count 16.7 K/mm3 (4.8-10.8)
[2020-11-13 07:27] LABS: MANUAL DIFFERENTIAL MANUAL DIFFERENTIAL (MANUAL DIFF)
[2020-11-13 08:28] LABS: Lymphocytes % 3 % (10-50); Monocytes % 1 % (2-9); Neutrophils % 96 % (42-76); Nucleated Red Blood Cells 1; Total Cells Counted 100
[2020-11-13 08:29] LABS: Hypochromasia 1+; Macrocytosis 2+; Platelet Estimate Normal
--- NOTE | 2020-11-13 09:17 | HMH.ACPN2 ---
Internal Medicine - PN: Subj *Date: 11/13/20 *Time: 08:15 Interval history: molding to knees, notified family Exam Vital signs and Labs for Last 24 Hours: Temp Pulse Resp BP Pulse Ox 100.1 F H 97 H 20 175/67 H 95 11/13/20 08:00 11/13/20 08:00 11/13/20 08:00 11/13/20 08:00 11/13/20 08:00 Laboratory Results - last 24 hr 11/12/20 17:02: POC Glucose 121 H 11/12/20 20:10: POC Glucose 109 11/13/20 05:18: POC Glucose 161 H 11/13/20 05:22: Total Bilirubin 0.7, Direct Bilirubin 0.7 H, Conjugated Bilirubin 0.0, Indirect Bilirubin 0.0, Unconjugated Bilirubin 0.0, AST 74 H, ALT 38, Alkaline Phosphatase 113, Total Protein 7.4, Albumin 3.9 11/13/20 05:29: WBC 16.7 H, RBC 3.11 L, Hgb 10.6 L, Hct 32.7 L, MCV 105.0 H, MCH 34.1 H, MCHC 32.4, RDW 15.2, Plt Count 128 L D, MPV 10.9 H, Neut % (Auto) 93.6 H, Lymph % (Auto) 3.5 L, [place] % (Auto) 2.0, Eos % (Auto) 0.1, Baso % (Auto) 0.8, Neut # (Auto) 15.6 H, Lymph # (Auto) 0.6 L, [place] # (Auto) 0.3, Eos # (Auto) 0.0, Baso # (Auto) 0.1, Total Counted 100, Neutrophils % (Manual) 96 H, Lymphocytes % (Manual) 3 L, Monocytes % (Manual) 1 L, Nucleated RBCs 1, Platelet Estimate Normal, Hypochromasia 1+, Macrocytosis 2+ 11/13/20 05:29: Sodium 147 H, Potassium 3.1 L, Chloride 109 H, Carbon Dioxide 24, Anion Gap 17.1 H, BUN 27 H, Creatinine 1.70 H, Estimated Creat Clear 25, Estimated GFR 29 L, Est GFR ( Amer) 35 L, Glucose 172 H, Calcium 8.9 I & O for Last 24 hours: Intake & Output 11/10/20 11/11/20 11/12/20 11/13/20 11:59 11:59 11:59 11:59 Intake Total 860 / 860 480 / 480 224.9 / 224.9 889 / 889 Output Total 1300 / 1300 500 / 500 1350 / 1350 2775 / 2775 Balance -440 / -440 -20 / -20 -1125.1 / -1125.1 -1886 / -1886 Weight 135 lb 2 oz 134 lb 4 oz 130 lb 6 oz 128 lb 4 oz - Constitutional no acute distress, obtunded - *Routine HEENT Exam Head: Present: normocephalic Eye: Present: PERRL ENT: Present: mucous membranes moist - *Routine Neck Exam Present: supple. Absent: lymphadenopathy - *Routine Respiratory Exam Present: CTA bilaterally - *Routine Cardiovascular Exam Present: RRR - *Routine Abdominal Exam Present: soft, normoactive bowel sounds. Absent: tenderness - *Routine Extremities Exam Absent: cyanosis, clubbing, edema Comments: molding - *Routine Skin Exam Present: warm. Absent: rash - *Routine Neurological Exam unresponsive - Routine Psychiatric Exam Present: unable to assess Assessment and Plan (1) Cardiomyopathy Status: Acute Category: Medical Code(s): I42.9 - Cardiomyopathy, unspecified (2) Regional wall motion abnormality of heart Status: Acute Category: Medical Code(s): R93.1 - Abnormal findings on diagnostic imaging of heart and coronary circulation (3) LV dysfunction Status: Acute Category: Medical Code(s): I51.9 - Heart disease, unspecified (4) Systolic CHF Status: Acute Category: Medical Code(s): I50.20 - Unspecified systolic (congestive) heart failure (5) Atrial fibrillation Status: Acute Qualifiers: Atrial fibrillation type: unspecified Qualified Code(s): I48.91 - Unspecified atrial fibrillation Category: Medical Code(s): I48.91 - Unspecified atrial fibrillation (6) UTI (urinary tract infection) Status: Acute Qualifiers: Urinary tract infection type: site unspecified Hematuria presence: without hematuria Qualified Code(s): N39.0 - Urinary tract infection, site not specified Category: Medical Code(s): N39.0 - Urinary tract infection, site not specified (7) CVA, old, cognitive deficits Status: Chronic Category: Medical Code(s): I69.319 - Unspecified symptoms and signs involving cognitive functions following cerebral infarction (8) Diabetes mellitus, type II Status: Chronic Qualifiers: Diabetes mellitus alf insulin use: without rat exterminator use Diabetes mellitus complication status: without complication Qualified Code(s): E11.9 - Type 2 diabetes m
--- NOTE | 2020-11-13 09:49 | PC.NURSE ---
Dressing to left hand changed. Wound cleansed w/ns and covered w/telfa and tegaderm. Skin tear to left elbow cleansed w/ns and covered w/telfa and tegaderm. Pt tolerated well.
--- NOTE | 2020-11-13 10:26 | HMH.PNCARD ---
Subjective Date: 11/13/20 Time: 10:00 Principal diagnosis: afib with rvr Interval history: This is a 80-year-old white female who presented to the emergency department with altered mental status and was found to have a UTI. She is being treated for the UTI currently. She did undergo left cardiac catheterization yesterday for new onset cardiomyopathy and the patient was found to have mild nonocclusive coronary artery disease. No intervention was required. The patient does have severe LV dysfunction. Medical management was recommended for her coronary artery disease as well as for systolic congestive heart failure. She did have successful cardioversion back to sinus rhythm yesterday. She remains in sinus rhythm today on an amiodarone drip. This morning the patient is awake when I enter the room. She is kind of thrashing her left upper extremity. She is not responding to any of my commands or answering any questions today. She appears to be in no distress and her vital signs are stable this morning. Her grandson is at the bedside. She is mottled in her lower extremities bilaterally up to about the knee. Exam Vital signs and Labs for Last 24 Hours: Temp Pulse Resp BP Pulse Ox 100.1 F H 97 H 20 136/94 H 95 11/13/20 08:00 11/13/20 08:00 11/13/20 08:00 11/13/20 10:30 11/13/20 08:00 Laboratory Results - last 24 hr 11/12/20 17:02: POC Glucose 121 H 11/12/20 20:10: POC Glucose 109 11/13/20 05:18: POC Glucose 161 H 11/13/20 05:22: Total Bilirubin 0.7, Direct Bilirubin 0.7 H, Conjugated Bilirubin 0.0, Indirect Bilirubin 0.0, Unconjugated Bilirubin 0.0, AST 74 H, ALT 38, Alkaline Phosphatase 113, Total Protein 7.4, Albumin 3.9 11/13/20 05:29: WBC 16.7 H, RBC 3.11 L, Hgb 10.6 L, Hct 32.7 L, MCV 105.0 H, MCH 34.1 H, MCHC 32.4, RDW 15.2, Plt Count 128 L D, MPV 10.9 H, Neut % (Auto) 93.6 H, Lymph % (Auto) 3.5 L, [place] % (Auto) 2.0, Eos % (Auto) 0.1, Baso % (Auto) 0.8, Neut # (Auto) 15.6 H, Lymph # (Auto) 0.6 L, [place] # (Auto) 0.3, Eos # (Auto) 0.0, Baso # (Auto) 0.1, Total Counted 100, Neutrophils % (Manual) 96 H, Lymphocytes % (Manual) 3 L, Monocytes % (Manual) 1 L, Nucleated RBCs 1, Platelet Estimate Normal, Hypochromasia 1+, Macrocytosis 2+ 11/13/20 05:29: Sodium 147 H, Potassium 3.1 L, Chloride 109 H, Carbon Dioxide 24, Anion Gap 17.1 H, BUN 27 H, Creatinine 1.70 H, Estimated Creat Clear 25, Estimated GFR 29 L, Est GFR ( Amer) 35 L, Glucose 172 H, Calcium 8.9 I & O for Last 24 hours: Intake & Output 11/10/20 11/11/20 11/12/20 11/13/20 23:59 23:59 23:59 23:59 Intake Total 420 / 480 186 / 186 826.9 / 826.9 161 / 161 Output Total 700 / 700 1350 / 1350 1475 / 1475 1300 / 1300 Balance -280 / -220 -1164 / -1164 -648.1 / -648.1 -1139 / -1139 Weight 135 lb 2 oz 134 lb 4 oz 130 lb 6 oz 128 lb 4 oz Narrative: Telemetry strip is sinus rhythm with a rate in the 90s. - Constitutional no acute distress, average body habitus, chronically ill appearing - *Routine HEENT Exam Head: Present: normocephalic, atraumatic Eye: Present: PERRL ENT: Present: mucous membranes moist - *Routine Neck Exam Present: supple, normal carotid upstroke. Absent: JVD, carotid bruit, lymphadenopathy - *Routine Respiratory Exam Present: rales, rhonchi, wheezes - *Routine Cardiovascular Exam Present: RRR, Normal S1, Normal S2, murmur - *Routine Abdominal Exam Present: soft, normoactive bowel sounds. Absent: tenderness, distended - *Routine Extremities Exam Present: pulses intact, normal capillary refill. Absent: cyanosis, clubbing, edema - *Routine Skin Exam Present: mottling (Bilateral lower extremities up to the knee). Absent: rash - *Routine Neurological Exam Present: altered mental status Progress Note: A&P (1) Cardiomyopathy Status: Acute (2) Regional wall motion abnormality of heart Status: Acute (3) LV dysfunction Status: Acute (4) Systolic CHF Status: Acute (5) Atrial fibrillation Status: Acute (
--- NOTE | 2020-11-13 10:45 | PC.NURSE ---
Per patient and patients son, patient is now . Ex- removed from next of kin and patients son added.
--- NOTE | 2020-11-13 12:21 | PC.NURSE ---
Dietary notified for courtesy cart.
--- NOTE | 2020-11-13 13:10 | PC.NURSE ---
pest control worker here to talk with family
--- NOTE | 2020-11-13 13:45 | PC.NURSE ---
0.5mg of ativan IV given per testing consultant and family request.
--- NOTE | 2020-11-13 14:15 | PC.NURSE ---
Per hospice administrator patient has been accepted to hospice inpatient here
--- NOTE | 2020-11-13 14:30 | PC.NURSE ---
Pt is now hospice with comfort measures. She is unable to follow commands or speak but she will shake her head yes or no to questions occasionally. Pupils are unequal and sluggish to react. She has multiple bruises to upper extremities. Mottling to lower half of body and is cool to the touch. Dressing to right radial site, left hand and left elbow are clean, dry and intact. Pt had a low grade fever this am of 100.1. Tylenol administered and recheck was 99.1. IV to LAC was infiltrated this AM so it was removed and new IV to RFA/wrist placed. Amiodarone gtt turned off @ 1243 per instructions. She has a pascual to bedside draining clear, straw colored urine. Heels are floated and she has been turned q2hrs. Oral care provided as tolerated. Family is at bedside.
--- NOTE | 2020-11-13 16:06 | PC.NURSE ---
Verified w/patients grandson that family would like all non essential meds to be dc'd. They only wanted comfort meds to be given.
--- NOTE | 2020-11-13 20:15 | PC.NURSE ---
Pt does not answer questions or follow commands. Oral care provided. She is being turned and repositioned q 2 hours. Extremities are cool to touch. She is mottled to her waist. F/C patent with yellow, clear urine. Rapid respirations noted.
[2020-11-14 00:14] VITALS: RESP 33
--- NOTE | 2020-11-14 00:16 | PC.NURSE ---
Pt's respirations are noted to be labored with periods of apnea. 0011-Attempted to contact Rodrigo-message left to call hospital 0012-Attempted to contact Stacie-message left to call hospital
--- NOTE | 2020-11-14 00:22 | PC.NURSE ---
Spoke with Stacie on the phone and informed her of pt's status. She stated she would try to contact Rodrigo.
--- NOTE | 2020-11-14 01:39 | PC.NURSE ---
Family, Rodrigo is in the room.
--- NOTE | 2020-11-14 04:49 | PC.NURSE ---
LUPILLO Blair refused weight on patient.
[2020-11-14 07:56] VITALS: BP 147/91; PULSE 100; RESP 20; TEMP 38.1; O2SAT 95
--- NOTE | 2020-11-14 13:11 | HMH.ACPN2 ---
Internal Medicine - PN: Subj *Date: 11/14/20 *Time: 08:30 Interval history: pt modeling to mary hips, pt unresponsive family at bedside Exam Vital signs and Labs for Last 24 Hours: Temp Pulse Resp BP Pulse Ox 100.6 F H 100 H 20 147/91 H 95 11/14/20 07:56 11/14/20 07:56 11/14/20 07:56 11/14/20 07:56 11/14/20 07:56 I & O for Last 24 hours: Intake & Output 11/12/20 11/13/20 11/14/20 11/15/20 11:59 11:59 11:59 11:59 Intake Total 224.9 / 224.9 889 / 889 Output Total 1350 / 1350 2775 / 2775 2450 / 2450 Balance -1125.1 / -1125.1 -1886 / -1886 -2440 / -2440 Weight 130 lb 6 oz 128 lb 4 oz - Constitutional no acute distress, obtunded - *Routine HEENT Exam Head: Present: normocephalic Eye: Present: PERRL ENT: Present: mucous membranes moist - *Routine Neck Exam Present: supple. Absent: lymphadenopathy - *Routine Respiratory Exam Present: CTA bilaterally - *Routine Cardiovascular Exam Present: irregular rhythm - *Routine Abdominal Exam Present: soft, normoactive bowel sounds. Absent: tenderness - *Routine Extremities Exam Present: normal capillary refill. Absent: cyanosis, clubbing, edema - *Routine Skin Exam Present: mottling. Absent: rash - *Routine Neurological Exam unresponsive - Routine Psychiatric Exam Present: unable to assess Assessment and Plan (1) Cardiomyopathy Status: Acute Category: Medical Code(s): I42.9 - Cardiomyopathy, unspecified (2) Regional wall motion abnormality of heart Status: Acute Category: Medical Code(s): R93.1 - Abnormal findings on diagnostic imaging of heart and coronary circulation (3) LV dysfunction Status: Acute Category: Medical Code(s): I51.9 - Heart disease, unspecified (4) Systolic CHF Status: Acute Category: Medical Code(s): I50.20 - Unspecified systolic (congestive) heart failure (5) Atrial fibrillation Status: Acute Qualifiers: Atrial fibrillation type: unspecified Qualified Code(s): I48.91 - Unspecified atrial fibrillation Category: Medical Code(s): I48.91 - Unspecified atrial fibrillation (6) UTI (urinary tract infection) Status: Acute Qualifiers: Urinary tract infection type: site unspecified Hematuria presence: without hematuria Qualified Code(s): N39.0 - Urinary tract infection, site not specified Category: Medical Code(s): N39.0 - Urinary tract infection, site not specified (7) CVA, old, cognitive deficits Status: Chronic Category: Medical Code(s): I69.319 - Unspecified symptoms and signs involving cognitive functions following cerebral infarction (8) Diabetes mellitus, type II Status: Chronic Qualifiers: Diabetes mellitus senior care insulin use: without filler leaf cutter long use Diabetes mellitus complication status: without complication Qualified Code(s): E11.9 - Type 2 diabetes mellitus without complications Category: Medical Code(s): E11.9 - Type 2 diabetes mellitus without complications (9) Hemiparesis affecting dominant side as late effect of cerebrovascular accident Status: Chronic Category: Medical Code(s): I69.359 - Hemiplegia and hemiparesis following cerebral infarction affecting unspecified side (10) Dysphagia Status: Acute Qualifiers: Dysphagia type: unspecified Qualified Code(s): R13.10 - Dysphagia, unspecified Category: Medical Code(s): R13.10 - Dysphagia, unspecified (11) Proteus mirabilis infection Status: Acute Category: Medical Code(s): A49.8 - Other bacterial infections of unspecified site (12) Hypertension Status: Chronic Qualifiers: Hypertension type: essential hypertension Qualified Code(s): I10 - Essential (primary) hypertension Category: Medical Code(s): I10 - Essential (primary) hypertension (13) Hyperlipidemia Status: Chronic Qualifiers: Hyperlipidemia type: mixed hyperlipidemia Qualified Code(s): E78.2 - Mixed hyperlipidemia Category: Medical
--- NOTE | 2020-11-14 20:35 | PC.NURSE ---
2019 rn called to room by family. patient found without pulse or respirations. pupils non reactive. family at bedside. dry house attendant and dr. jung notified. dr. jung pronounced at 2019. family requesting char[facility] home. [facility] contacted
--- NOTE | 2020-11-14 20:48 | HMH.DEATH ---
Pronouncement Note - Date and Time of Date of : 11/14/20 Time of : 20:20 - PCOD Preliminary cause of : Congestive heart failure - Additional Data Attending physician: Wiliam Hughes MD
--- NOTE | 2020-11-14 20:49 | PC.NURSE ---
[facility] referral number [id number] by irvin ware. ruledout
--- NOTE | 2020-11-14 20:54 | [facility].DCSUM ---
General - General Admission date:: 11/06/20 Discharge date: 11/14/20 HPI HPI: 80 yr old female presents to ed with AMS,decreased LOC, from [facility] via ambulance. Prior CVA with right sided weakness. Pt arrived in ed alert and oriented to Person, but very difficult to understand. Work up in ed shows a UTI pt admitted for further treatment and work up. 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 The patient has been in the hospital getting treated for her UTI. She subsequently went into atrial fibrillation with RVR. She has been started on a diltiazem drip and remains in atrial fibrillation at this time. Her heart rate still remains a little elevated this morning. The patient has had some changes in her level of consciousness since being here in the hospital. Today the patient is not answering any questions or following any commands. She does open her eyes when I say her name but she is not looking at me and she is not answering any questions at all. Her grandson is at her bedside today and states that she is not answering for him either. The family has just decided to make the patient a DNR and they have also decided not to place the NG tube for feedings at this time. The patient appears to be in no distress. Her vital signs are stable this morning except for her heart rate being on the higher side. n: 1. The patient is admitted to the hospital with altered mental status and found to have a UTI. She has been treated for this with IV antibiotics per her primary care provider. Will defer. 2. The patient did go into atrial fibrillation with RVR. She has been started on a Cardizem drip and her heart rate is still elevated this morning. We will increase her Cardizem drip to 15 mg an hour for better rate control. The patient is unable to take oral medications at this time so we will continue the Cardizem drip for now. 3. The patient's echocardiogram is still currently pending. 4. The patient's creatinine was 1.3 on admission. Her creatinine is up to 1.[address] Francisco does suspect that the patient has some underlying diastolic dysfunction and her cardiac output has decreased since being in atrial fibrillation and caused her renal function to elevate some. 5. Dr. Francisco thinks it is reasonable to give the patient Lasix 40 mg IV x1 dose for diastolic dysfunction. 6. Her blood pressures well controlled. 7. Her LDL goal is less than 100. 8. The patient appears to be in no distress. No plans for invasive cardiac testing at this time. 9. Baseline the patient has a history of a CVA with right-sided deficits. She would likely not be a good candidate for anticoagulation due to the right sided deficits that she has from her previous stroke. While hospitalized she probably would benefit from being on Lovenox injections. 9. Further recommendations will be made pending the patient's response to treatment. patient's IV has infiltrated and she likely has not received any of her IV Cardizem this morning. The patient is scheduled to undergo PICC line placement today. Once the PICC line is in place, will restart her Cardizem drip at 10 mg an hour to see how her heart rate response to this. If she remains tachycardic, then we will increase this to 15. s is a 80-year-old white female who presented to the emergency department with altered mental status and was found to have a UTI. This morning the patient is awake when I walk into the room. She is a
--- NOTE | 2020-11-14 21:59 | PC.NURSE ---
Addendum entered by Chana Goetz CNA 11/14/20 22:03: PT LEFT FLOOR AT [id number] Original Note: PT & WAS ESCORTED OUT OF FACILITY BY [facility].
== END 2020-11-14 21:55 | disposition expired | DRG 689 ==
LOC: ER 22:21 → 2ND 11-06 01:36
PROVIDERS: Family Medicine; Internal Medicine; Nurse Practitioner Family; Admitting Provider Emergency Medicine; Emergency Provider Emergency Medicine; PCP Emergency Medicine; Visit Provider Emergency Medicine
PROC: 4A023N7 Measurement of Cardiac Sampling and Pressure, Left Heart, Percutaneous Approach (ICD-10-PCS; principal; 2020-11-12 13:30)
DX: N39.0 Urinary tract infection, site not specified (principal); I50.21 Acute systolic (congestive) heart failure; I69.351 Hemiplegia and hemiparesis following cerebral infarction affecting right dominant side; Z66 Do not resuscitate; Z51.5 Encounter for palliative care; I48.91 Unspecified atrial fibrillation; I25.10 Atherosclerotic heart disease of native coronary artery without angina pectoris; J44.9 Chronic obstructive pulmonary disease, unspecified; F32.9 Major depressive disorder, single episode, unspecified; M19.90 Unspecified osteoarthritis, unspecified site; E78.5 Hyperlipidemia, unspecified; E11.9 Type 2 diabetes mellitus without complications; Z96.649 Presence of unspecified artificial hip joint; F17.210 Nicotine dependence, cigarettes, uncomplicated; K21.9 Gastro-esophageal reflux disease without esophagitis; Z85.3 Personal history of malignant neoplasm of breast; I69.319 Unspecified symptoms and signs involving cognitive functions following cerebral infarction; B96.4 Proteus (mirabilis) (morganii) as the cause of diseases classified elsewhere; I11.0 Hypertensive heart disease with heart failure; Z88.2 Allergy status to sulfonamides; Z88.8 Allergy status to other drugs, medicaments and biological substances
CPT/HCPCS: 36569; 36415; 70450; 71045; 80048; 80053; 80076; 81001; 82803; 82962; 83605; 84145; 85007; 85025; 85651; 86140; 87040; 87086; 87088; 87186; 92610; 92960; 93005; 93306; 93308; 93458; 94640; 96365; 96366; 99152; 99285; C1725; C1751; C1769; J0282; J1644; J7060; Q9967; U0003